=== PATIENT | male | born 1940 | race Two or more races ===

== ENCOUNTER → 2024-02-28 | Outpatient (CLI) | payer OTHER, MEDICAID, SELFPAY ==
--- NOTE | 2024-02-28 14:32 | XR_ITS ---
Examination: Foot, right, 3 views Technique: AP, oblique, lateral views foot, 3 views Date and time of exam: February 28, 2024 1427 hours INDICATIONS: Right foot swelling and pain beginning one month ago. FINDINGS: Severe osteopenia Soft tissue vascular calcification No fracture. No cortical bone destruction Small plantar posterior bony calcaneal spurs IMPRESSION: No fracture No zaid cortical bone destruction
== END | disposition home or self-care (01) ==
LOC: CDIM 14:23 → SWHO 14:24
PROVIDERS: Referring Provider Surgery; Visit Provider Radiology Diagnostic Radiology
DX: L97.519 Non-pressure chronic ulcer of other part of right foot with unspecified severity (principal)
CPT/HCPCS: 73630

== ENCOUNTER → 2024-03-23 | Outpatient (CLI) | payer OTHER, SELFPAY | END | disposition home or self-care (01) | PROVIDERS: PCP Nurse Practitioner Family; Referring Provider Nurse Practitioner Family; Visit Provider Student in an Organized Health Care Education/Training Program | DX: L97.411 Non-pressure chronic ulcer of right heel and midfoot limited to breakdown of skin (principal); S91.301A Unspecified open wound, right foot, initial encounter; X58.XXXA Exposure to other specified factors, initial encounter; I25.10 Atherosclerotic heart disease of native coronary artery without angina pectoris; I10 Essential (primary) hypertension | CPT/HCPCS: 99212; G0463 ==

== ENCOUNTER 2024-07-10 12:29 | Inpatient (IN) | payer OTHER, MEDICARE, SELFPAY ==
[2024-07-10 12:52] VITALS: BP 123/67; PULSE 76; RESP 18; TEMP 36.6; O2SAT 99; BMI 30.9
--- NOTE | 2024-07-10 13:03 | PD.EDABDPN ---
ED Abdominal Pain RME/HPI General Chief Complaint: Abdominal Pain Stated complaint: UPPER ABD PAIN, N/V Time seen by provider: 07/10/24 12:35 Arrival date/time: 07/10/24 12:29 RME / HPI RME / HPI narrative: 83-year-old male patient with significant history of hypertension, CAD, status post open heart surgery, came in for evaluation regarding abdominal pain. Patient has been having abdominal pain since yesterday, noted diffuse in location, associated with vomiting and bloody several times. Pain is described as dull ache, severity moderate. Last bowel movement was this morning. Denies any fever denies any other complaints no medications taken prior to ER visit.. Patient is currently followed by Dr. Galeano, for chronic kidney disease. Related Data Home Medications ?Medication ?Instructions ?Recorded ?Confirmed aspirin 81 mg capsule 81 mg PO QDAY 08/10/23 08/10/23 atorvastatin 20 mg tablet (Lipitor) 20 mg PO QDAY 08/10/23 08/10/23 carvedilol 12.5 mg tablet 12.5 mg PO BID 08/10/23 08/10/23 felodipine 5 mg tablet,extended 5 mg PO QDAY 08/10/23 08/10/23 release 24 hr hydrochlorothiazide 12.5 mg capsule 12.5 mg PO QAM 08/10/23 08/10/23 lisinopril 20 mg tablet 20 mg PO QDAY 08/10/23 08/10/23 pantoprazole 40 mg tablet,delayed 40 mg PO QDAY 08/10/23 08/10/23 release (Protonix) Previous Rx's ?Medication ?Instructions ?Recorded amoxicillin 875 mg-potassium 1 tab PO BID #10 tabs 08/11/23 clavulanate 125 mg tablet Allergies Allergy/AdvReac Type Severity Reaction Status Date / Time No Known Allergies Allergy Verified 08/10/23 18:16 Review of Systems Review of Systems Narrative Review of Systems: Review of system reviewed and within normal limits except mentioned in HPI ED Exam Narrative Physical exam: VITAL SIGNS: Reviewed. GENERAL APPEARANCE: Alert and interactive, follows commands, no acute distress, HEAD AND FACE: Non-traumatic. ENT: PERRL, pink conjunctivitis, eyelid no trauma, Mucous membrane moist. NECK: Supple, nontender, no nuchal rigidity. CHEST: No tenderness, no crepitus, no paradoxical movement, no retractions. LUNGS: Clear, well ventilated, symmetric, no rales, no wheezing, no ronchi, no stridor, good breath sounds bilaterally. HEART: Regular rate, regular rhythm, no murmur, no gallops. ABDOMEN: Decreased bowel sounds, nondistended, no guarding, diffuse tenderness, no rebound, no masses, RECTAL: Deferred. GENITAL: Deferred. NEUROLOGICAL: Gross motor function intact sensory function intact, Appropriate for age. MUSCULOSKELETAL: low back nontender, full range of motion. EXTREMITIES: Nontender, full range of motion. SKIN: Color pink, dry, no rash, no lacerations, no abrasions, no contusions. LYMPHATICS: Deferred. Course Quality Measures none Orders Category Date Time Status COVID-19 Screening Questionnaire NOW Care 07/10/24 16:16 Active Decision to Admit X1 Care 07/10/24 16:16 Active EKG (ED ONLY) *Do not use* NOW Care 07/10/24 13:00 Completed NG / OG Tube to LIS NOW Care 07/10/24 15:[address] abdomen pelvis wo con Stat Exams 07/10/24 14:30 Completed EKG (ED Only) Stat Exams 07/10/24 13:00 Ordered US renal artery study complete Stat Exams 07/10/24 15:49 Ordered CBC Stat Lab 07/10/24 13:15 Completed Comprehensive Metabolic Panel Stat Lab 07/10/24 13:15 Completed Lactate (Lactic Acid) Stat Lab 07/10/24 13:15 Completed Lactic Acid, 3 HR Stat Lab 07/10/24 16:31 Ordered Lipase Stat Lab 07/10/24 13:15 Completed Partial Thromboplastin Time Stat Lab 07/10/24 13:15 Completed Prothrombin Time with INR Stat Lab 07/10/24 13:15 Completed Troponin I Stat Lab 07/10/24 13:15 Completed UA, C/S IF [Urinalysis, C/S if Indicated] Stat Lab 07/10/24 13:01 Ordered Metoclopramide Inj [Reglan Inj] Med 07/10/24 14:30 Discontinued 10 mg IVP X1 ONE Ondansetron Inj [Zofran Inj] Med 07/10/24 13:01 Discontinued 4 mg IV X1 ONE Sodium Chloride 0.9% 1000 ml [Ns] 1,000 ml Med 07/10/24 13:01 Discontinued IV 999 mls/hr Sodium Chloride 0.9% 1000 ml [Ns] 1,000 ml Med 07/10/24 15:54 Discontinued IV 999 mls/hr Vital Signs Vital signs: Vital Signs Temperature 98 F 07/10/24 12:52 Pulse Rate 76 07/10/24 12:52 Respiratory Rate 18 07/10/24 12:52 Blood Pressure 123/67 07/10/24 12:52 Pulse Oximetry (%) 99 07/10/24 12:52 Oxygen Delivery Method Room Air 07/10/24 12:52 Abdominal Pain [facility] Narrative [facility] Narrative:: 83-year-old male patient with significant history of hypertension, CAD, status post open heart surgery, came in for evaluation regarding abdominal pain. Patient has been having abdominal pain since yesterday, noted diffuse in location, associated with vomiting and bloody several times. Pain is described as dull ache, severity moderate. Last bowel movement was this morning. Denies any fever denies any other complaints no medications taken prior to ER visit.. CT scan of the abdomen shows Small bowel obstruction pattern, recommend Gastrografin small bowel series follow-up Severe stenosis right renal artery, consider renal arterial Doppler sonographic evaluation kidneys Laboratory workup is significant for chronic kidney disease, otherwise unremarkable. Patient received IV fluids x 2 L, Reglan IV Zofran IV and NG tube inserted attests to LIS Patient data External records reviewed:: None Clinical information provided by:: patient Social determinants that could affect healthcare access:: none Patient has the following chronic illnesses:: History of exploratory laparotomy in the past. How is presenting disease/condition affected by chronic disease/condition?: exacerbated by Evaluation data The following diagnostics were reviewed and interpreted by me:: lab results and radiology exam(s) Lab and/or radiology exams considered but not ordered:: None Interpretation Summary: See results in MDM Medications / Prescriptions Medications or Prescriptions considered but not ordered:: None Medication administrations:: Medication Administration History Discontinued Medications Sodium Chloride (Ns) 1,000 mls @ 999 mls/hr IV .Q1H1M ONE Stop: 07/10/24 14:01 Last Admin: 07/10/24 13:34 Dose: 999 mls/hr Documented By: JOSÉ MANUEL Sodium Chloride (Ns) 1,000 mls @ 999 mls/hr IV .Q1H1M ONE Stop: 07/10/24 16:54 Metoclopramide HCl (Metoclopramide Inj 5 Mg/Ml Vial 2 Ml) 10 mg IVP X1 ONE; Protocol Stop: 07/10/24 14:31 Last Admin: 07/10/24 14:57 Dose: 10 mg Documented By: RADHA Ondansetron HCl (Ondansetron Inj 2 Mg/Ml Inj 2 Ml) 4 mg IV X1 ONE; Protocol Stop: 07/10/24 13:02 Last Admin: 07/10/24 13:44 Dose: 4 mg Documented By: RADHA IV fluids x 2 L, Reglan Zofran Consultations Consultation(s) initiated? (list below): No Diagnosis Differential diagnosis abdominal pain: abdominal pain, constipation and small bowel obstruction Most likely diagnosis given after review of the tests above:: Small bowel obstruction Admission Indicated Admission indicated?: indicated Explain why admission is indicated or not indicated:: For further management Admission Request Was there a request for admission?: Yes Admission Attestation Admission request attestation: Discussed case with [Dr Pitts] from Hospitalist service regarding admission. Discussed patients ED course, exam findings, labs, and radiology results. The Hospitalist [agrees, to accept the patient for admission. Disposition Plan Disposition Plan: Admit Discharge Plan Plan Patient Disposition: Admit Acute Care w/in Hospital Disposition Comment: Stable Prescriptions/Referrals Prescriptions/Med Rec: No Action carvedilol 12.5 mg Tablet 12.5 mg PO BID Rx Instructions: must administer with a meal/food lisinopril 20 mg Tablet 20 mg PO QDAY aspirin 81 mg Capsule 81 mg PO QDAY atorvastatin [Lipitor] 20 mg Tablet 20 mg PO QDAY felodipine 5 mg Tablet Extended Release 24 Hr 5 mg PO QDAY pantoprazole [Protonix] 40 mg Tablet,Delayed Release (Dr/Ec) 40 mg PO QDAY hydrochlorothiazide 12.5 mg Capsule 12.5 mg PO QAM amoxicillin-pot clavulanate 875-125 mg tablet 1 tab PO BID Qty: 10 0RF Referrals: No Primary/Family,Physician [Primary Care Provider] - In 1 week Problem List Clinical Impression: Abdominal pain, Small bowel obstruction Patient/Caregiver Discharge Instructions Print Language: Pakistani Stand Alone Forms: Seema Award Info., Patient Portal Info Letter
[2024-07-10 13:33] LABS: Lactate (Lactic Acid) 3.1 mMol/L (0.4-2.0)
[2024-07-10] MEDS: SODIUM CHLORIDE 0.9% 1000 ML 1,000 ML 999 ML IV ×2 (13:34→17:32)
[2024-07-10] MEDS: ONDANSETRON INJ 2 MG/ML INJ 2 ML 4 MG IV ×2 (13:44→19:07)
[2024-07-10 13:45] LABS: Basophils % (Auto) 0 % (0-2.5); Eosinophils % (Auto) 0 % (0-10); Hematocrit 41.3 % (41.0-53.0); Hemoglobin 13.9 g/dL (13.5-16.0); Immature Granulocytes % (Auto) 0 % (0-0); Immature Granulocytes Auto 0.02 Thou/mm3 (0.00-0.00); Lymphocytes # (Auto) 0.8 Thou/mm3 (1.0-4.8); Lymphocytes % (Auto) 12 % (10-50); Mean Corpuscular HGB Conc 33.7 g/dl (31.0-37.0); Mean Corpuscular Hemoglobin 29.9 pg (25.0-35.0); Mean Corpuscular Volume 89 fL (80-100); Monocytes % (Auto) 15 % (0-12); Neutrophils # (Auto) 5.1 Thou/mm3 (1.8-7.7); Neutrophils % (Auto) 73 % (37-80); Nucleated Red Blood Cell % 0 /100 WBC (0); Platelet Count 228 Thou/mm3 (140-440); Red Blood Count 4.65 Miln/mm3 (4.50-5.90); White Blood Count 6.9 Thou/mm3 (3.8-10.6)
[2024-07-10 13:48] LABS: INR 1.1 (0.9-1.3); Partial Thromboplastin Time 23.3 Seconds (22.0-36.0)
[2024-07-10 13:53] LABS: Alanine Aminotransferase 18 U/L (10-49); Albumin, Serum 4.7 gm/dL (3.4-4.8); Anion Gap 15 (7-16); Aspartate Amino Transferase 17 U/L (0-34); BUN/Creatinine Ratio 22 Ratio (12-20); Bilirubin,Total 1.5 mg/dL (0.3-1.2); Blood Urea Nitrogen 59 mg/dL (9-23); Carbon Dioxide 29.1 mMol/L (20.0-31.0); Chloride 99 mMol/L (98-107); Creatinine (Component) 2.7 mg/dL (0.6-1.3); Estimated Creatinine Clearance 23.2 mL/min (>60); Glucose 206 mg/dL (74-106); Osmolality,Calculated 307 (275-295); Potassium 4.1 mMol/L (3.4-5.1); Sodium 143 mMol/L (136-145); Total Protein 8.4 gm/dL (5.7-8.2); Troponin I < 0.020 ng/mL (0.0-0.045); eGFR 23 See Note
[2024-07-10 13:54] LABS: Albumin/Globulin Ratio 1.3 (1.2-2.2); Alkaline Phosphatase 82 U/L (46-116); Globulin 3.7 gm/dL (2.3-3.5); Lipase 29 U/L (12-53)
--- NOTE | 2024-07-10 14:30 | XR_ITS ---
Examination: CT abdomen and pelvis without contrast. Coronal 3-D reconstructions. Sagittal 2-D reconstructions. Date and time of exam: July 10, 2024 at 1445 hrs. Indications: Onset abdominal pain with nausea today, history 1 mm left renal calculus on CT study August 16, 2020 CTDI: vol (mGy): 9.21 DLP: (mGycm): 614 Technique: Axial images of the abdomen have been obtained, 3 mm slice thickness Intravenous contrast material has not been administered. Low dose protocols were performed. One or more of the following dose reduction techniques were used; automated exposure control, adjustment of the mA and/or KV according to patient size, use of iterative reconstruction technique. Findings: Fluid distended stomach No focal liver or splenic lesions No definite gallstones No pancreatic mass Atrophic kidneys No renal or ureteral calculi, no hydronephrosis Very heavy calcification origin right renal artery with no critical stenosis Fluid distended small bowel loops Normal appendix 12 mm fat-containing umbilical hernia Contracted urinary bladder Prostate 3.9 cm Severe osteopenia with chronic wedge deformity L5 Impression: Small bowel obstruction pattern, recommend Gastrografin small bowel series follow-up Severe stenosis right renal artery, consider renal arterial Doppler sonographic evaluation kidneys
[2024-07-10] MEDS: METOCLOPRAMIDE INJ 5 MG/ML VIAL 2 ML 10 MG IVP (14:57)
[2024-07-10 16:31] LABS: Reflex Lactate? Y
--- NOTE | 2024-07-10 17:09 | XR_ITS ---
Examination: Small bowel series AP supine portable abdomen 4 views Exam date and time: 07/11/2024 0039 hrs. Indications: Abdominal pain and distention this week, small bowel obstruction pattern on CT abdomen pelvis June, Technique And Findings: Patient received 120 cc Gastrografin, intermediate, 30 minutes, 1 hour, 2 hours films show contrast remaining in the stomach Impression: Recommend follow-up abdomen film now, and 1000 hours
--- NOTE | 2024-07-10 17:21 | PD.RESHP ---
Documentation for date of: 07/10/24 HPI History of Present Illness History of present illness: 83-year-old man with past medical history of CAD s/p open heart surgery, hypertension, CKD who came to the ED with chief complaint of abdominal pain. Patient stated that approximately 3 days ago after eating some beans and tortillas hours later started having nausea and multiple episodes of vomiting associated to severe pain until last night that he describes the pain as diffuse and unbearable for which he decided to come to the ED. He stated he was passing gas until last night and that his last bowel movement was this morning and was very scant. Patient denies fever, chills, chest pain shortness of breath or any other associated symptom. He stated that he thinks today probably he vomited blood. ED course: Initial vitals: Unremarkable Pertinent labs: WBCs within normal limits, hemoglobin 13.9, creatinine 2.7 BUN 59 EGFR 23, lactic acid 3.1, T. bili 1.5 Imaging: CT abdomen pelvis showed Small bowel obstruction pattern, 12 mm fat-containing umbilical hernia, very heavy calcification of right origin of renal artery with no critical stenosis At the ED the patient received: IV fluids 2 L bolus LR, ondansetron IV, and Reglan IV, NG tube was placed and patient will be admitted for further treatment and management of SBO and GIORGI on CKD Past medical history:CAD s/p open heart surgery, hypertension, CKD Past surgical history: Open heart surgery Family history: Father neck cancer, moderate diabetes Social history: Never smoker, never drinker, denied recreational drug, used to work in the [employer] Travel history: None relevant Allergies: No known allergy Review of Systems Review of Systems Systems Reviewed: All systems reviewed, normal except as documented Exam Vital Signs Temp Pulse Resp BP Pulse Ox O2 Del Method 98 F 76 18 123/67 99 Room Air 07/10/24 12:52 07/10/24 12:52 07/10/24 12:52 07/10/24 12:52 07/10/24 12:52 07/10/24 12:52 Narrative Exam General: No acute distress, well appearing, alert, interactive, AOx4 HEENT: NC/AT, PERRL, EOMI, Good conjugate gaze, moist mucous membranes, oropharynx clear. Neck: Supple, No masses, No adenopathy, carotid pulse 2+ bilaterally without bruits, No JVD, normal range of motion. Chest: Symmetrical, atraumatic, and with equal expansion , Nontender on palpation no deformity and no crepitus. CVS: S1 and S2 present, Regular rate and rhythm, No murmurs, rubs or gallops perceived during auscultation. Lungs: Normal respiratory effort, CTAB, no wheezing, rhonchi or rales perceived during auscultation, No intercostal or subcostal retraction. Abdomen : Distended, mild tenderness to palpation on all abdominal quadrants, no guarding ,no rebound, hypoactive bowel sounds Extremities: 1+ edema bilateral lower extremities, warm well perfused, normal tone and ROM, strength and sensation intact, cap refill less than 2, +2 dp equal bilaterally, able to move all 4 extremities spontaneously. Skin: Intact, no rashes, no lesions, no erythema or jaundice noted Neuro: AOx4, no focal neurologic deficits noted, GCS 15 Psych: Appropriate mood and affect. Results: Labs 07/10/24 13:15 07/10/24 13:15 Labs: Short CBC 07/10/24 Range/Units 13:15 WBC 6.9 (3.8-10.6) Thou/mm3 Hgb 13.9 (13.5-16.0) g/dL Hct 41.3 (41.0-53.0) % Plt Count 228 (140-440) Thou/mm3 BMP 07/10/24 13:15 Sodium 143 Potassium 4.1 Chloride 99 Carbon Dioxide 29.1 BUN 59 H Creatinine 2.7 H Glucose 206 H Calcium 10.0 Cardiac Enzymes 07/10/24 Range/Units 13:15 Troponin I < 0.020 (0.0-0.045) ng/mL Liver Function 07/10/24 Range/Units 13:15 Total Bilirubin 1.5 H (0.3-1.2) mg/dL AST 17 (0-34) U/L ALT 18 (10-49) U/L Alkaline Phosphatase 82 (46-116) U/L Albumin 4.7 (3.4-4.8) gm/dL Quality Measures Quality Measures none Advance care planning discussed with:: patient Medications Home Medications and Allergies Home Medications ?Medication ?Instructions ?Recorded ?Confirmed ?Type aspirin 81 mg capsule 81 mg PO QDAY 08/10/23 08/10/23 History atorvastatin 20 mg tablet (Lipitor) 20 mg PO QDAY 08/10/23 08/10/23 History carvedilol 12.5 mg tablet 12.5 mg PO BID 08/10/23 08/10/23 History felodipine 5 mg tablet,extended 5 mg PO QDAY 08/10/23 08/10/23 History release 24 hr hydrochlorothiazide 12.5 mg capsule 12.5 mg PO QAM 08/10/23 08/10/23 History lisinopril 20 mg tablet 20 mg PO QDAY 08/10/23 08/10/23 History pantoprazole 40 mg tablet,delayed 40 mg PO QDAY 08/10/23 08/10/23 History release (Protonix) Allergies Allergy/AdvReac Type Severity Reaction Status Date / Time No Known Allergies Allergy Verified 08/10/23 18:16 Visit Medications Sodium Chloride (Ns) 1,000 mls @ 100 mls/hr IV .Q10H [facility] Stop: 08/09/24 17:14 Morphine Sulfate (Morphine Sulf Inj 10 Mg/Ml Vial) 1 mg IVP Q4HR PRN PRN Reason: PAIN SCALE 7-10 (Severe Stop: 07/15/24 17:02 Ondansetron HCl (Ondansetron Inj 2 Mg/Ml Inj 2 Ml) 4 mg IV Q6HR PRN; Protocol PRN Reason: NAUSEA OR VOMITING Stop: 08/09/24 17:07 Pantoprazole Sodium (Pantoprazole Inj 40 Mg Vial) 40 mg IVP QDAY WILIAN Stop: 08/09/24 17:14 Discontinued Medications Sodium Chloride (Ns) 1,000 mls @ 999 mls/hr IV .Q1H1M ONE Stop: 07/10/24 14:01 Last Admin: 07/10/24 13:34 Dose: 999 mls/hr Sodium Chloride (Ns) 1,000 mls @ 999 mls/hr IV .Q1H1M ONE Stop: 07/10/24 16:54 Metoclopramide HCl (Metoclopramide Inj 5 Mg/Ml Vial 2 Ml) 10 mg IVP X1 ONE; Protocol Stop: 07/10/24 14:31 Last Admin: 07/10/24 14:57 Dose: 10 mg Ondansetron HCl (Ondansetron Inj 2 Mg/Ml Inj 2 Ml) 4 mg IV X1 ONE; Protocol Stop: 07/10/24 13:02 Last Admin: 07/10/24 13:44 Dose: 4 mg Assessment & Plan Plan 83-year-old man with past medical history of CAD s/p open heart surgery, hypertension, CKD who came to the ED with chief complaint of abdominal pain. Patient stated that approximately 3 days ago after eating some beans and tortillas hours later started having nausea and multiple episodes of vomiting associated to severe pain until last night that he describes the pain as diffuse and unbearable for which he decided to come to the ED. He stated he was passing gas until last night and that his last bowel movement was this morning and was very scant. Patient denies fever, chills, chest pain shortness of breath or any other associated symptom. He stated that he thinks today probably he vomited blood.Pertinent labs: WBCs within normal limits, hemoglobin 13.9, creatinine 2.7 BUN 59 EGFR 23, lactic acid 3.1, T. bili 1.5 Imaging: CT abdomen pelvis showed Small bowel obstruction pattern, 12 mm fat-containing umbilical hernia, very heavy calcification of right origin of renal artery with no critical stenosis. At the ED the patient received: IV fluids 2 L bolus LR, ondansetron IV, and Reglan IV, NG tube was placed and patient will be admitted for further treatment and management of SBO and GIORGI on CKD #Small bowel obstruction Patient present 3 days of nausea vomiting and severe abdominal pain Last bowel movement was this morning that he stated that was a scant, was passing gas until last night CT abdomen pelvis showed Small bowel obstruction pattern, 12 mm fat-containing umbilical hernia ? IV NS 100 cc/h ? Ondansetron 4 mg IV every 6 for nausea and vomiting ? Protonix 40 mg IV daily ? IV morphine 1 mg every 4 hours as needed ? N.p.o. ? Insert NG tube ? Low intermittent suction ? Follow-up Gastrograffin small bowel series ? Follow-up CBC and CMP #Rule out upper GI bleed Possibly secondary to erosive gastritis vs Domi-Chou vs PUD? Patient had multiple episodes of vomiting for the last 3 days that could be causing mucosal erosion Less likely GI bleed at this moment hemoglobin stable 13.9 ? Follow-up occult blood test ? Follow-up H&H ? We will consider possibility of consulting GI in case of guaiac is positive or hemoglobin downtrends #GIORGI on CKD stage IIIb Most likely prerenal in the setting of dehydration Patient is following up for CKD and nephrology as an outpatient CT abdomen pelvis shows heavy calcification of right origin of renal artery with no critical stenosis Creatinine baseline around 1.4 Creatinine today 2.7 BUN 59 EGFR 23 - IV fluids NS at 100 cc/h - Strict ins and outs - Avoid nephrotoxic drugs - Renally dose medications - Follow-up renal ultrasound - Follow-up CMP #Lactic acidosis Possibly secondary to impaired lactate clearance in the setting of CKD vs bowel ischemia? CT abdomen pelvis shows small bowel obstruction pattern, 12 mm fat-containing umbilical hernia without incarceration Lactic acid 3.1 ? Continue IV fluids ? Trend lactic acid #Hyperbilirubinemia Most likely secondary to severe vomiting Liver enzymes within normal limits, alk phos normal less likely obstruction pattern T. bili 1.5 ? Follow-up CMP #History of CAD status post open heart surgery ? Patient is n.p.o. resume any home medications when reconciled and patient is able to eat #History of hypertension Patient is normotensive at this moment ? Hold home medications at the moment due to blood pressures on the soft side and patient is n.p.o. Disposition: MedSurg Fluids and Diet: N.p.o./IV fluids NS 100 cc/h DVT prophylaxis: SCD GI prophylaxis: Protonix Clemons: None CODE STATUS: Full code Patient discussed with my attending Dr Vesta Castro MD PGY-3 Disclaimer: Despite multiple revisions, due to the dictation software being used, the document bellow may not be free of grammatical errors including phonetic/typographic errors. However, this does not deter from our commitment to providing health care in the patient's best interest in mind. Attending Provider Attestation/Addendum I attest that I was physically present for the evaluation, physical examination, lab and imaging review of the patient with the residents. I discussed the case with the residents and agree with the findings and plans of care as documented above. Patient is a 83 years old male with past medical history of CAD status post open heart surgery, hypertension, CKD who presented to the ED with complaint of abdominal pain. Patient has been having abdominal pain associated with nausea and vomiting for last 3 days. His pain got worse last night and he decided to visit the ED. He did have a small bowel movement this morning. In the ED, he was found to have BUN/creatinine of 59/2.7, elevated lactate elevated bilirubin. CT abdomen/pelvis was done, which showed small bowel obstruction, umbilical hernia and heavy calcification of renal artery with no critical stenosis. We will admit the patient for management of small bowel obstruction. Will start him on IV Zofran, analgesics, NG tube with low intermittent suction,. Once patient's nausea/vomiting improves, we will start small bowel series with Gastrografin. We will also start him on maintenance IV hydration for dehydration, GIORGI and elevated lactate. Basilio Lemons MD
[2024-07-10 18:01] LABS: Glucose Estimated Average 120 mg/dL (80-131); Hemoglobin A1C 5.8 % Hgb (4.8-6.0)
[2024-07-10 18:35] LABS: Lactic Acid, 3 HR 1.6 mMol/L (0.4-2.0)
[2024-07-10 18:40] LABS: Collection Type, Urine Clean Catch
[2024-07-10 18:50] VITALS: BP 157/65; PULSE 72; RESP 19; TEMP 37; O2SAT 91
[2024-07-10 18:53] LABS: Bilirubin,Urine Negative (Negative); Blood,Urine Negative (Negative); Clarity,Urine Clear (Clear/Hazy); Color,Urine Yellow (Lt Yel-Yel); Culture Indicated,Urine Not Indicated; Glucose, Urine Negative (Negative); Hyaline Casts,Urine 1 /hpf (0-1); Ketones,Urine Negative (Negative); Leukocyte Esterase,Urine Negative (Negative); Nitrite,Urine Negative (Negative); Protein,Urine Trace (Neg - Trace); RBC,Urine 2 /hpf (0-3); Specific Gravity,Urine 1.021 (1.001-1.035); Squamous Epithelial Cell,Urine 1 /hpf (0-5); Urobilinogen,Urine Negative mg/dL (0.0-1.0); WBC,Urine 1 /hpf (0-5)
[2024-07-10] MEDS: MORPHINE SULF INJ 10 MG/ML VIAL IVP (19:06)
[2024-07-10] MEDS: PANTOPRAZOLE INJ 40 MG VIAL IVP (19:06)
[2024-07-10] MEDS: SODIUM CHLORIDE 0.9% 1000 ML 1,000 ML 100 ML IV (19:07)
--- NOTE | 2024-07-10 20:11 | XR_ITS ---
Examination: AP chest single view Technique: AP portable upright chest single view Exam date and time: Indicative of exam 1922 hrs. Comparison the 2023 Indications: Post orogastric tube placement. Findings: Orogastric tube is poorly visualized but appears to be in the abdomen Marked elevation left hemidiaphragm Prominent vascular congestion CABG Mild enlargement cardiac contour Impression: Recommend abdomen film follow-up to best assess position of the orogastric tube
--- NOTE | 2024-07-10 22:34 | XR_ITS ---
Examination: AP chest single view Technique: AP portable upright chest single view Exam date and time: June 20142024 hours Indications: Post orogastric tube placement Findings: Orogastric tube in stomach satisfactory position CABG Enlarged cardiac contour Moderate elevation left hemidiaphragm Moderate vascular congestion Impression: Orogastric tube in stomach satisfactory position
[2024-07-10 23:12] VITALS: BMI 30.9
[2024-07-11] VITALS: BP 130/58; PULSE 65; RESP 19; TEMP 36.4; O2SAT 91
--- NOTE | 2024-07-11 | XR_ITS ---
Examination: Abdomen AP single view Technique: AP portable supine abdomen, single view Exam date and time: 07/11/2024, 8:29 AM COMPARISON: CT and small bowel film from 07/10/2024 INDICATION: Small bowel is follow-up. COMPARISON: Contrast remains within the stomach. No evidence of contrast passing into duodenum and small bowel. Multiple dilated loops of small bowel measuring up to 4 cm. IMPRESSION: As above. Findings consistent with gastric outlet/small bowel obstruction
[2024-07-11] MEDS: SODIUM CHLORIDE 0.9% 1000 ML 1,000 ML 100 ML IV (00:18)
[2024-07-11 04:00] VITALS: BP 129/55; PULSE 71; RESP 18; TEMP 36.3; O2SAT 93
[2024-07-11 06:15] LABS: Basophils % (Auto) 1 % (0-2.5); Eosinophils % (Auto) 0 % (0-10); Hematocrit 36.8 % (41.0-53.0); Hemoglobin 12.1 g/dL (13.5-16.0); Immature Granulocytes % (Auto) 0 % (0-0); Immature Granulocytes Auto 0.01 Thou/mm3 (0.00-0.00); Lymphocytes # (Auto) 0.8 Thou/mm3 (1.0-4.8); Lymphocytes % (Auto) 15 % (10-50); Mean Corpuscular HGB Conc 32.9 g/dl (31.0-37.0); Mean Corpuscular Hemoglobin 29.8 pg (25.0-35.0); Mean Corpuscular Volume 91 fL (80-100); Monocytes # (Auto) 1.2 Thou/mm3 (0.0-0.8); Monocytes % (Auto) 24 % (0-12); Neutrophils # (Auto) 2.9 Thou/mm3 (1.8-7.7); Neutrophils % (Auto) 60 % (37-80); Nucleated Red Blood Cell % 0 /100 WBC (0); Platelet Count 191 Thou/mm3 (140-440); RDW Standard Deviation 47.4 fL (35.1-43.9); Red Blood Count 4.06 Miln/mm3 (4.50-5.90); White Blood Count 4.9 Thou/mm3 (3.8-10.6)
[2024-07-11 06:51] LABS: Alanine Aminotransferase 13 U/L (10-49); Albumin, Serum 4.1 gm/dL (3.4-4.8); Albumin/Globulin Ratio 1.4 (1.2-2.2); Alkaline Phosphatase 62 U/L (46-116); Anion Gap 13 (7-16); Aspartate Amino Transferase 23 U/L (0-34); BUN/Creatinine Ratio 19 Ratio (12-20); Bilirubin,Total 1.1 mg/dL (0.3-1.2); Blood Urea Nitrogen 71 mg/dL (9-23); Calcium 8.7 mg/dL (8.3-10.6); Calcium (Corrected) 8.7 mg/dL (8.5-10.1); Chloride 103 mMol/L (98-107); Creatinine (Component) 3.7 mg/dL (0.6-1.3); Glucose 121 mg/dL (74-106); Magnesium 2.3 mg/dL (1.6-2.6); Osmolality,Calculated 316 (275-295); Phosphorous 6.5 mg/dL (2.4-5.1); Potassium 4.1 mMol/L (3.4-5.1); Sodium 148 mMol/L (136-145); Total Protein 7.1 gm/dL (5.7-8.2); eGFR 16 See Note
--- NOTE | 2024-07-11 07:09 | PD.RESPRO ---
Documentation for date of: 07/11/24 Subjective Subjective Interval history: No overnight acute events This morning at the bedside patient is AOx4, 2 L of bilious secretion came out from NG tube at the moment of insertion, patient states that he still feels nauseous, otherwise endorse that the pain has improved stated he still had not passed any gas or had any bowel movement yet. Small bowel series with Gastrografin showed gastric outlet and small bowel obstruction for which gastroenterology was consulted and recommended to start Reglan 5 mg IV every 6 hours. Creatinine has been uptrending to 3.7 despite patient being on IV fluids, Dr. Galeano was consulted we greatly appreciate recommendations. Exam Vital Signs Temp Pulse Resp BP Pulse Ox O2 Del Method 97.3 F 71 18 129/55 L 93 L Room Air 07/11/24 04:00 07/11/24 04:00 07/11/24 04:00 07/11/24 04:00 07/11/24 04:00 07/11/24 04:00 Narrative Exam General: No acute distress, well appearing, alert, interactive, AOx4, NG tube in place draining bilious content HEENT: NC/AT, PERRL, EOMI, Good conjugate gaze, moist mucous membranes, oropharynx clear. Neck: Supple, No masses, No adenopathy, carotid pulse 2+ bilaterally without bruits, No JVD, normal range of motion. Chest: Symmetrical, atraumatic, and with equal expansion , Nontender on palpation no deformity and no crepitus. CVS: S1 and S2 present, Regular rate and rhythm, No murmurs, rubs or gallops perceived during auscultation. Lungs: Normal respiratory effort, CTAB, no wheezing, rhonchi or rales perceived during auscultation, No intercostal or subcostal retraction. Abdomen : Distended, mild tenderness to palpation on all abdominal quadrants, no guarding ,no rebound, hypoactive bowel sounds Extremities: 1+ edema bilateral lower extremities, warm well perfused, normal tone and ROM, strength and sensation intact, cap refill less than 2, +2 dp equal bilaterally, able to move all 4 extremities spontaneously. Skin: Intact, no rashes, no lesions, no erythema or jaundice noted Neuro: AOx4, no focal neurologic deficits noted, GCS 15 Psych: Appropriate mood and affect. Objective Labs 07/11/24 04:37 07/11/24 04:37 Labs: Laboratory Results - last 24 hr 07/10/24 07/10/24 07/10/24 13:15 18:27 18:33 WBC 6.9 RBC 4.65 Hgb 13.9 Hct 41.3 MCV 89 MCH 29.9 MCHC 33.7 RDW Std Deviation 45.0 H Plt Count 228 Neut % (Auto) 73 Lymph % (Auto) 12 [place] % (Auto) 15 H Eos % (Auto) 0 Baso % (Auto) 0 Neut # (Auto) 5.1 Lymph # (Auto) 0.8 L [place] # (Auto) 1.0 H Eos # (Auto) 0.0 Baso # (Auto) 0.0 Immature Gran # (Auto) 0.02 H Absolute Nucleated RBC 0.00 Immature Gran % 0 Nucleated RBC % 0 PT 12.0 INR 1.1 APTT 23.3 Sodium 143 Potassium 4.1 Chloride 99 Carbon Dioxide 29.1 Anion Gap 15 BUN 59 H Creatinine 2.7 H Estim Creat Clear Calc 23.2 L eGFR 23 L BUN/Creatinine Ratio 22 H Glucose [address] Glu mg/dL 120 Hemoglobin A1c 5.8 Calculated Osmolality 307 H Lactic Acid 3.1 H 1.6 Calcium 10.0 Corrected Calcium 10.0 Phosphorus Magnesium Total Bilirubin 1.5 H AST 17 ALT 18 Alkaline Phosphatase 82 Troponin I < 0.020 Total Protein 8.4 H Albumin 4.7 Globulin 3.7 H Albumin/Globulin Ratio 1.3 Lipase 29 Ur Collection Type Clean Catch Urine Color Yellow Urine Clarity Clear Urine pH 5.0 Ur Specific [place] 1.021 Urine Protein Trace Urine Glucose (UA) Negative Urine Ketones Negative Urine Blood Negative Urine Nitrite Negative Urine Bilirubin Negative Urine Urobilinogen (Auto) Negative Ur Leukocyte Esterase Negative Urine RBC 2 Urine WBC 1 Ur Squamous Epith Cells 1 Urine Bacteria None Hyaline Casts 1 Ur Culture Indicated? Not Indicated 07/11/24 04:37 WBC 4.9 RBC 4.06 L Hgb 12.1 L Hct 36.8 L MCV 91 MCH 29.8 MCHC 32.9 RDW Std Deviation 47.4 H Plt Count 191 D Neut % (Auto) 60 Lymph % (Auto) 15 [place] % (Auto) 24 H Eos % (Auto) 0 Baso % (Auto) 1 Neut # (Auto) 2.9 Lymph # (Auto) 0.8 L [place] # (Auto) 1.2 H Eos # (Auto) 0.0 Baso # (Auto) 0.0 Immature Gran # (Auto) 0.01 H Absolute Nucleated RBC 0.00 Immature Gran % 0 Nucleated RBC % 0 PT INR APTT Sodium 148 H Potassium 4.1 Chloride 103 Carbon Dioxide 32.0 H Anion Gap 13 BUN 71 H Creatinine 3.7 H D Estim Creat Clear Calc 17.0 L eGFR 16 L BUN/Creatinine Ratio 19 [address]ucose [address] Glu mg/dL Hemoglobin A1c Calculated Osmolality 316 H Lactic Acid Calcium 8.7 Corrected Calcium 8.7 Phosphorus 6.5 H Magnesium 2.3 Total Bilirubin 1.1 AST 23 ALT 13 Alkaline Phosphatase 62 D Troponin I Total Protein 7.1 Albumin 4.1 D Globulin 3.0 Albumin/Globulin Ratio 1.4 Lipase Ur Collection Type Urine Color Urine Clarity Urine pH Ur Specific [place] Urine Protein Urine Glucose (UA) Urine Ketones Urine Blood Urine Nitrite Urine Bilirubin Urine Urobilinogen (Auto) Ur Leukocyte Esterase Urine RBC Urine WBC Ur Squamous Epith Cells Urine Bacteria Hyaline Casts Ur Culture Indicated? Quality Measures Quality Measures none Advance care planning discussed with:: patient Assessment & Plan Assessment Current Active Medications: Generic Name Dose Route Start Last Admin Trade Name Freq PRN Reason Stop Dose Admin Sodium Chloride 1,000 mls @ 100 mls/hr 07/10/24 17:15 07/11/24 00:18 Ns IV 08/09/24 17:14 100 mls/hr .Q10H WILIAN Administration Morphine Sulfate 1 mg 07/10/24 17:03 07/10/24 19:06 Morphine Sulf Inj 10 Mg/Ml Vial IVP 07/15/24 17:02 1 mg Q4HR PRN Administration PAIN SCALE 7-10 (Severe Ondansetron HCl 4 mg 07/10/24 17:08 07/10/24 19:07 Ondansetron Inj 2 Mg/Ml Inj 2 Ml IV 08/09/24 17:07 4 mg Q6HR PRN Administration NAUSEA OR VOMITING Protocol Pantoprazole Sodium 40 mg 07/10/24 17:15 07/10/24 19:06 Pantoprazole Inj 40 Mg Vial IVP 08/09/24 17:14 40 mg QDAY WILIAN Administration Plan 83-year-old man with past medical history of CAD s/p open heart surgery, hypertension, CKD who came to the ED with chief complaint of abdominal pain. Patient stated that approximately 3 days ago after eating some beans and tortillas hours later started having nausea and multiple episodes of vomiting associated to severe pain until last night that he describes the pain as diffuse and unbearable for which he decided to come to the ED. He stated he was passing gas until last night and that his last bowel movement was this morning and was very scant. Patient denies fever, chills, chest pain shortness of breath or any other associated symptom. He stated that he thinks today probably he vomited blood.Pertinent labs: WBCs within normal limits, hemoglobin 13.9, creatinine 2.7 BUN 59 EGFR 23, lactic acid 3.1, T. bili 1.5 Imaging: CT abdomen pelvis showed Small bowel obstruction pattern, 12 mm fat-containing umbilical hernia, very heavy calcification of right origin of renal artery with no critical stenosis. At the ED the patient received: IV fluids 2 L bolus LR, ondansetron IV, and Reglan IV, NG tube was placed and patient will be admitted for further treatment and management of SBO and GIORGI on CKD #Small bowel obstruction Patient present 3 days of nausea vomiting and severe abdominal pain Last bowel movement was this morning that he stated that was a scant, was passing gas until last night CT abdomen pelvis showed Small bowel obstruction pattern, 12 mm fat-containing umbilical hernia ? IV LR 150 cc/h ? Tenia Protonix 40 mg IV daily ? IV morphine 1 mg every 4 hours as needed ? Low intermittent suction ? Follow-up CBC and CMP #Gastric outlet Small bowel series showed gastric outlet and small bowel obstruction Gastroenterology was consulted who recommended to start Reglan IV 5 mg every 6 hours ? DC ondansetron ? IV Reglan 5 mg every 6 hours #Rule out upper GI bleed Possibly secondary to erosive gastritis vs Domi-Chou vs PUD? Patient had multiple episodes of vomiting for the last 3 days that could be causing mucosal erosion Less likely GI bleed at this moment hemoglobin stable 13.9 ? Follow-up occult blood test ? Follow-up CBC #GIORGI on CKD stage IIIb Most likely prerenal in the setting of dehydration Patient is following up for CKD and nephrology as an outpatient CT abdomen pelvis shows heavy calcification of right origin of renal artery with no critical stenosis Creatinine baseline around 1.4 Creatinine uptrending to 3.7 Dr Galeano nephrology was consulted with greatly appreciate recommendations - IV fluids LR at 150 cc/h - Strict ins and outs - Avoid nephrotoxic drugs - Renally dose medications - Follow-up renal ultrasound - Follow-up CMP #Hyperphosphatemia Most likely secondary to GIORGI on CKD Phosphorus 6.5 Nephrology was consulted we will appreciate recommendations ? Follow-up CMP and phosphorus #History of CAD status post open heart surgery ? Patient is n.p.o. resume any home medications when reconciled and patient is able to eat #History of hypertension Patient is normotensive at this moment ? Hold home medications at the moment due to blood pressures on the soft side and patient is n.p.o. ? Hydralazine 10 IV every 6 hours as needed for SBP [id number] #Lactic acidosis resolved Possibly secondary to impaired lactate clearance in the setting of CKD vs bowel ischemia? CT abdomen pelvis shows small bowel obstruction pattern, 12 mm fat-containing umbilical hernia without incarceration Lactic acid trend down to normal limits #Hyperbilirubinemia resolved Most likely secondary to severe vomiting Liver enzymes within normal limits, alk phos normal less likely obstruction pattern T. bili down trended to normal limits ? Follow-up CMP Disposition: MedSurg Fluids and Diet: N.p.o./IV fluids NS 100 cc/h DVT prophylaxis: SCD GI prophylaxis: Protonix Clem[place]: None CODE STATUS: Full code Patient discussed with my attending Dr Vesta Castro MD PGY-3 Disclaimer: Despite multiple revisions, due to the dictation software being used, the document bellow may not be free of grammatical errors including phonetic/typographic errors. However, this does not deter from our commitment to providing health care in the patient's best interest in mind. Attending Provider Attestation/Addendum I attest that I was physically present for the evaluation, physical examination, lab and imaging review of the patient with the residents. I discussed the case with the residents and agree with the findings and plans of care as documented above. At side today, patient continues to complain of nausea. He has been having bilious secretion coming out of his NG tube. Small bowel series with Gastrografin has been started, reading from the last 1 showed gastric outlet and small bowel obstruction. Discussed with gastroenterology, recommended starting patient on Reglan. Creatinine noted to be uptrending, 3.7 today, we will continue with IV hydration and obtain nephrology consult. Patient currently on LR 150 cc/h, Protonix, NG tube with low intermittent suction. Patient stated about dark vomit but his hemoglobin continues to be stable, unable to obtain FOBT as patient has not passed bowel or gas. Basilio Lemons MD
[2024-07-11 08:00] VITALS: BP 156/63; PULSE 73; RESP 18; TEMP 36.2; O2SAT 91
[2024-07-11] MEDS: PANTOPRAZOLE INJ 40 MG VIAL IVP (08:32)
[2024-07-11] MEDS: ONDANSETRON INJ 2 MG/ML INJ 2 ML 4 MG IV (09:01)
[2024-07-11] MEDS: RINGERS LACTATED 1000 ML 1,000 ML 100 ML IV (10:07)
[2024-07-11 12:00] VITALS: BP 150/63; PULSE 68; RESP 20; TEMP 36.6; O2SAT 90
--- NOTE | 2024-07-11 14:45 | PC.SS ---
Rounding: Follow up on ABD series
[2024-07-11] MEDS: METOCLOPRAMIDE INJ 5 MG/ML VIAL 2 ML IVP ×3 (14:49→23:43)
[2024-07-11 16:00] VITALS: BP 154/71; PULSE 84; RESP 18; TEMP 36.3; O2SAT 99
[2024-07-11] MEDS: RINGERS LACTATED 1000 ML 1,000 ML 150 ML IV (17:22)
--- NOTE | 2024-07-11 18:00 | XR_ITS ---
Examination: Abdomen AP single view Technique: AP portable supine abdomen, single view Exam date and time: The intrapelvic today at 1708 hrs. Indications: 20 hour delayed film post small bowel series yesterday Findings: Contrast in distended small bowel loops, minimal contrast in colon Impression: Small bowel obstruction pattern
[2024-07-11 20:00] VITALS: BP 140/64; PULSE 74; RESP 20; TEMP 36.2; O2SAT 92
--- NOTE | 2024-07-11 21:03 | PD.IMCONS ---
HPI Data of Consult Requesting Physician: Basilio Lemons MD Primary Care Provider: Physician No Primary/Family Consult Narrative Reason for consult: Nausea vomiting pain abdomen History of present illness: 83 years old male presented to the emergency room on 07/10/2024 with diffuse abdominal pain nausea vomiting some of the vomit was bloody Patient has an NGT in place with bilious drainage which is copious Small bowel follow-through is in progress initial films showed gastric ulcer obstruction but the contrast eventually passed through and into the colon at the moment Patient has dilated loops of bowel but no air-fluid levels cc:: cc: Basilio Lemons MD Review of Systems Review of Systems Systems Reviewed: All systems reviewed, normal except as documented Past Medical History Surgical History OTHER SURGICAL HX: Essential hypertension coronary artery status post CABG Hyperlipidemia Meds Home Medications and Allergies Home Medications ?Medication ?Instructions ?Recorded ?Confirmed ?Type aspirin 81 mg capsule 81 mg PO QDAY 08/10/23 07/11/24 History atorvastatin 20 mg tablet (Lipitor) 20 mg PO QDAY 08/10/23 07/11/24 History carvedilol 12.5 mg tablet 12.5 mg PO BID 08/10/23 07/11/24 History felodipine 5 mg tablet,extended 5 mg PO QDAY 08/10/23 07/11/24 History release 24 hr hydrochlorothiazide 12.5 mg capsule 12.5 mg PO QAM 08/10/23 07/11/24 History lisinopril 20 mg tablet 10 mg PO QDAY 08/10/23 07/11/24 History pantoprazole 40 mg tablet,delayed 40 mg PO QDAY 08/10/23 07/11/24 History release (Protonix) furosemide 40 mg tablet (Lasix) 40 mg PO QDAY 07/11/24 07/11/24 History terazosin 5 mg capsule 5 mg PO BID 07/11/24 07/11/24 History Allergies Allergy/AdvReac Type Severity Reaction Status Date / Time No Known Allergies Allergy Verified 08/10/23 18:16 Exam Vital Signs Temp Pulse Resp BP Pulse Ox O2 Del Method 97.2 F 74 20 140/64 H 92 L Room Air 07/11/24 20:00 07/11/24 20:00 07/11/24 20:00 07/11/24 20:00 07/11/24 20:00 07/11/24 20:00 Constitutional Comments: Chronically ill-appearing Routine Abdominal Exam Comments: Distended no bowel sounds Results Labs 07/11/24 04:37 07/11/24 04:37 Labs: Short CBC 07/11/24 Range/Units 04:37 WBC 4.9 (3.8-10.6) Thou/mm3 Hgb 12.1 L (13.5-16.0) g/dL Hct 36.8 L (41.0-53.0) % Plt Count 191 D (140-440) Thou/mm3 BMP 07/11/24 04:37 Sodium 148 H Potassium 4.1 Chloride 103 Carbon Dioxide 32.0 H BUN 71 H Creatinine 3.7 H D Glucose 121 H D Calcium 8.7 Liver Function 07/11/24 Range/Units 04:37 Total Bilirubin 1.1 (0.3-1.2) mg/dL AST 23 (0-34) U/L ALT 13 (10-49) U/L Alkaline Phosphatase 62 D (46-116) U/L Albumin 4.1 D (3.4-4.8) gm/dL Assessment and Plan Additional Assessment & Plan Additional Plan: Small bowel obstruction/ileus Continue NGT suction Contrast is moving Some of it is all in the right colon hopefully this is an incomplete obstruction and it will resolve with intermittent Gomco suction Patient does have a some kind of a gastroparesis with bloody vomiting on presentation Once the SBO resolves we will consider upper endoscopy to make sure there is no partial stenosis of the pyloric channel Other medical problems include CKD 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
[2024-07-12] VITALS (8 sets, daily range): BP systolic 127–150; BP diastolic 57–69; PULSE 64–79; RESP 16–20; TEMP 36.2–36.7; O2SAT 90–97
[2024-07-12] MEDS: RINGERS LACTATED 1000 ML 1,000 ML 150 ML IV ×2 (02:00→07:36)
[2024-07-12] MEDS: METOCLOPRAMIDE INJ 5 MG/ML VIAL 2 ML IVP ×4 (05:39→23:43)
[2024-07-12 05:42] LABS: Basophils % (Auto) 0 % (0-2.5); Eosinophils # (Auto) 0.1 Thou/mm3 (0.0-0.5); Eosinophils % (Auto) 1 % (0-10); Hematocrit 35.5 % (41.0-53.0); Hemoglobin 11.5 g/dL (13.5-16.0); Immature Granulocytes % (Auto) 0 % (0-0); Immature Granulocytes Auto 0.02 Thou/mm3 (0.00-0.00); Lymphocytes % (Auto) 16 % (10-50); Mean Corpuscular HGB Conc 32.4 g/dl (31.0-37.0); Mean Corpuscular Hemoglobin 30.2 pg (25.0-35.0); Mean Corpuscular Volume 93 fL (80-100); Monocytes # (Auto) 1.2 Thou/mm3 (0.0-0.8); Monocytes % (Auto) 19 % (0-12); Neutrophils # (Auto) 3.9 Thou/mm3 (1.8-7.7); Neutrophils % (Auto) 63 % (37-80); Nucleated Red Blood Cell % 0 /100 WBC (0); Platelet Count 170 Thou/mm3 (140-440); RDW Standard Deviation 48.5 fL (35.1-43.9); Red Blood Count 3.81 Miln/mm3 (4.50-5.90); White Blood Count 6.2 Thou/mm3 (3.8-10.6)
[2024-07-12 05:57] LABS: Alanine Aminotransferase 12 U/L (10-49); Albumin, Serum 3.7 gm/dL (3.4-4.8); Albumin/Globulin Ratio 1.2 (1.2-2.2); Alkaline Phosphatase 57 U/L (46-116); Anion Gap 12 (7-16); Aspartate Amino Transferase 19 U/L (0-34); BUN/Creatinine Ratio 22 Ratio (12-20); Bilirubin,Total 0.8 mg/dL (0.3-1.2); Blood Urea Nitrogen 83 mg/dL (9-23); Calcium 8.5 mg/dL (8.3-10.6); Calcium (Corrected) 8.7 mg/dL (8.5-10.1); Carbon Dioxide 33.6 mMol/L (20.0-31.0); Chloride 105 mMol/L (98-107); Creatinine (Component) 3.8 mg/dL (0.6-1.3); Estimated Creatinine Clearance 16.5 mL/min (>60); Globulin 3.1 gm/dL (2.3-3.5); Glucose 119 mg/dL (74-106); Magnesium 2.4 mg/dL (1.6-2.6); Osmolality,Calculated 325 (275-295); Phosphorous 6.6 mg/dL (2.4-5.1); Sodium 151 mMol/L (136-145); Total Protein 6.8 gm/dL (5.7-8.2); eGFR 15 See Note
--- NOTE | 2024-07-12 07:25 | PD.RESPRO ---
Documentation for date of: 07/12/24 Subjective Subjective Interval history: No oriented events This morning the bedside patient is AOx4, respond to questions properly he endorsed that he feels better compared to yesterday denied abdominal pain at this moment he stated he is passing gas otherwise no bowel movements yet. NG tube drainage 600 mL overnight. X-ray abdominal series from yesterday afternoon showed contrast in distended small bowel loops minimal contrast in colon most likely small bowel obstruction for which general surgery was consulted. Due to kidney function is not improving despite aggressive fluid hydration we spoke again with patient integration technician Dr. Galeano who recommended to start IV Bumex 2 mg every 6 hours to encourage diuresis. Due to patient present hypertonic hypernatremia most likely secondary to dehydration and NG tube output due to SBO with switch IV fluids from LR to D5W half NS at 100 cc/h. Exam Vital Signs Temp Pulse Resp BP Pulse Ox O2 Del Method 97.3 F 64 20 127/69 97 Room Air 07/12/24 04:00 07/12/24 04:00 07/12/24 04:00 07/12/24 04:00 07/12/24 04:00 07/12/24 04:00 Narrative Exam General: No acute distress, well appearing, alert, interactive, AOx4, NG tube in place draining bilious content HEENT: NC/AT, PERRL, EOMI, Good conjugate gaze, moist mucous membranes, oropharynx clear. Neck: Supple, No masses, No adenopathy, carotid pulse 2+ bilaterally without bruits, No JVD, normal range of motion. Chest: Symmetrical, atraumatic, and with equal expansion , Nontender on palpation no deformity and no crepitus. CVS: S1 and S2 present, Regular rate and rhythm, No murmurs, rubs or gallops perceived during auscultation. Lungs: Normal respiratory effort, CTAB, no wheezing, rhonchi or rales perceived during auscultation, No intercostal or subcostal retraction. Abdomen : Distended, mild tenderness to palpation on all abdominal quadrants, no guarding ,no rebound, hypoactive bowel sounds Extremities: 1+ edema bilateral lower extremities, warm well perfused, normal tone and ROM, strength and sensation intact, cap refill less than 2, +2 dp equal bilaterally, able to move all 4 extremities spontaneously. Skin: Intact, no rashes, no lesions, no erythema or jaundice noted Neuro: AOx4, no focal neurologic deficits noted, GCS 15 Psych: Appropriate mood and affect. Objective Labs 07/12/24 04:30 07/12/24 04:30 Labs: Laboratory Results - last 24 hr 07/12/24 04:30 WBC 6.2 RBC 3.81 L Hgb 11.5 L Hct 35.5 L MCV 93 MCH 30.2 MCHC 32.4 RDW Std Deviation 48.5 H Plt Count 170 Neut % (Auto) 63 Lymph % (Auto) 16 [place] % (Auto) 19 H Eos % (Auto) 1 Baso % (Auto) 0 Neut # (Auto) 3.9 Lymph # (Auto) 1.0 [place] # (Auto) 1.2 H Eos # (Auto) 0.1 Baso # (Auto) 0.0 Immature Gran # (Auto) 0.02 H Absolute Nucleated RBC 0.00 Immature Gran % 0 Nucleated RBC % 0 Sodium 151 H Potassium 4.0 Chloride 105 Carbon Dioxide 33.6 H Anion Gap 12 BUN 83 H Creatinine 3.8 H Estim Creat Clear Calc 16.5 L eGFR 15 L BUN/Creatinine Ratio 22 H Glucose 119 H Calculated Osmolality 325 H Calcium 8.5 Corrected Calcium 8.7 Phosphorus 6.6 H Magnesium 2.4 Total Bilirubin 0.8 AST 19 ALT 12 Alkaline Phosphatase 57 Total Protein 6.8 Albumin 3.7 Globulin 3.1 Albumin/Globulin Ratio 1.2 Quality Measures Quality Measures none Advance care planning discussed with:: patient Assessment & Plan Assessment Current Active Medications: Generic Name Dose Route Start Last Admin Trade Name Freq PRN Reason Stop Dose Admin Hydralazine HCl 10 mg 07/11/24 09:40 Hydralazine Inj 20 Mg/Ml Vial IV 08/10/24 09:44 Q6H PRN SBP >170 DPB >110 Lactated Ringer's 1,000 mls @ 150 mls/hr 07/11/24 12:17 07/12/24 02:00 Lactated Ringers IV 08/10/24 12:16 150 mls/hr .[id number] WILIAN Administration Metoclopramide HCl 5 mg 07/11/24 14:30 07/12/24 05:39 Metoclopramide Inj 5 Mg/Ml Vial 2 Ml IVP 08/10/24 14:29 5 mg Q6HR WILIAN Administration Protocol Morphine Sulfate 1 mg 07/10/24 17:03 07/10/24 19:06 Morphine Sulf Inj 10 Mg/Ml Vial IVP 07/15/24 17:02 1 mg Q4HR PRN Administration PAIN SCALE 7-10 (Severe Pantoprazole Sodium 40 mg 07/10/24 17:15 07/11/24 08:32 Pantoprazole Inj 40 Mg Vial IVP 08/09/24 17:14 40 mg QDAY WILIAN Administration Plan 83-year-old man with past medical history of CAD s/p open heart surgery, hypertension, CKD who came to the ED with chief complaint of abdominal pain. Patient stated that approximately 3 days ago after eating some beans and tortillas hours later started having nausea and multiple episodes of vomiting associated to severe pain until last night that he describes the pain as diffuse and unbearable for which he decided to come to the ED. He stated he was passing gas until last night and that his last bowel movement was this morning and was very scant. Patient denies fever, chills, chest pain shortness of breath or any other associated symptom. He stated that he thinks today probably he vomited blood.Pertinent labs: WBCs within normal limits, hemoglobin 13.9, creatinine 2.7 BUN 59 EGFR 23, lactic acid 3.1, T. bili 1.5 Imaging: CT abdomen pelvis showed Small bowel obstruction pattern, 12 mm fat-containing umbilical hernia, very heavy calcification of right origin of renal artery with no critical stenosis. At the ED the patient received: IV fluids 2 L bolus LR, ondansetron IV, and Reglan IV, NG tube was placed and patient will be admitted for further treatment and management of SBO and GIORGI on CKD #Hypotonic hypernatremia Most likely secondary to dehydration and GI losses due to NG tube in the setting of SBO Na+ 151 ? IV fluids D5W half NS 100 cc/h ? Follow-up CMP #Small bowel obstruction Patient present 3 days of nausea vomiting and severe abdominal pain Last bowel movement was this morning that he stated that was a scant, was passing gas until last night CT abdomen pelvis showed Small bowel obstruction pattern, 12 mm fat-containing umbilical hernia General Surgery was consulted we will appreciate recommendation ? IV D5W half NS 100 cc/h ? Protonix 40 mg IV daily ? IV morphine 1 mg every 4 hours as needed ? Low intermittent suction ? Follow-up CBC and CMP #Gastric outlet Small bowel series showed gastric outlet and small bowel obstruction Gastroenterology was consulted who recommended to start Reglan IV 5 mg every 6 hours ? DC ondansetron ? IV Reglan 5 mg every 6 hours #Rule out upper GI bleed Possibly secondary to erosive gastritis vs Domi-Chou vs PUD? Patient had multiple episodes of vomiting for the last 3 days that could be causing mucosal erosion Less likely GI bleed at this moment hemoglobin stable 13.9 ? Follow-up occult blood test ? Follow-up CBC #GIORGI on CKD stage IIIb Most likely prerenal in the setting of dehydration Patient is following up for CKD and nephrology as an outpatient CT abdomen pelvis shows heavy calcification of right origin of renal artery with no critical stenosis Creatinine baseline around 1.4 Creatinine uptrending to 3.78 Dr Galeano nephrology was consulted who recommended to start patient on IV Bumex 2 mg every 6 hours - IV fluids D5 W half NS 100 cc/h - Strict ins and outs - Avoid nephrotoxic drugs - Renally dose medications - Follow-up renal ultrasound - Follow-up CMP #Hyperphosphatemia Most likely secondary to GIORGI on CKD Nephrology Dr. Galeano was consulted we will appreciate recommendations ? Sevelamer 800 mg 3 times daily ? Follow-up CMP and phosphorus #History of CAD status post open heart surgery ? Patient is n.p.o. resume any home medications when reconciled and patient is able to eat #History of hypertension Patient is normotensive at this moment ? Hold home medications at the moment due to blood pressures on the soft side and patient is n.p.o. ? Hydralazine 10 IV every 6 hours as needed for SBP [id number] #Lactic acidosis resolved Possibly secondary to impaired lactate clearance in the setting of CKD vs bowel ischemia? CT abdomen pelvis shows small bowel obstruction pattern, 12 mm fat-containing umbilical hernia without incarceration Lactic acid trend down to normal limits #Hyperbilirubinemia resolved Most likely secondary to severe vomiting Liver enzymes within normal limits, alk phos normal less likely obstruction pattern T. bili down trended to normal limits ? Follow-up CMP Disposition: MedSurg Fluids and Diet: N.p.o./IV fluids D5W half NS 100 cc/h DVT prophylaxis: SCD GI prophylaxis: Protonix Clemons: None CODE STATUS: Full code Patient discussed with my attending Dr Vesta Castro MD PGY-3 Disclaimer: Despite multiple revisions, due to the dictation software being used, the document bellow may not be free of grammatical errors including phonetic/typographic errors. However, this does not deter from our commitment to providing health care in the patient's best interest in mind. Attending Provider Attestation/Addendum I attest that I was physically present for the evaluation, physical examination, lab and imaging review of the patient with the residents. I discussed the case with the residents and agree with the findings and plans of care as documented above. At bedside today, patient is states she feels better compared to arrival but still has not had a bowel movement. He did pass some gas. Continues to be on NG tube under low intermittent suction. Small bowel series still concerning for bowel obstruction but did show small amount of contrast in the colon. Discussed with general surgery, recommended conservative management with for now. Also discussed with gastroenterology regarding possible gastric outlet obstruction, patient is planned for upper GI endoscopy once his SBO resolves to rule out any pyloric pathology. Patient continues to have worsening kidney function, discussed with patient's integration technician Dr. Galeano, recommended restarting patient on Bumex 2 mg every 4 hour along with D5 half NS, orders placed accordingly, appreciate recommendations. Basilio Lemons MD
[2024-07-12] MEDS: PANTOPRAZOLE INJ 40 MG VIAL IVP (09:08)
[2024-07-12] MEDS: DEXTROSE 5%-0.45% NS 1,000 ML 100 ML IV ×2 (09:08→18:37)
[2024-07-12] MEDS: SEVELAMER CARBONATE 800 MG TABLET PO ×2 (12:20→17:14)
--- NOTE | 2024-07-12 12:25 | PD.SURCONS ---
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 Pt reports symptoms began a few days ago with abdominal pain that was slowly building, and he had episodes of nausea/vomiting prompting him to seek care in ER. Pt initially states he has never had similar symptoms but then does recount that 5 years ago he had an NG. He states his last BM was two days ago and was normal, and he has been passing gas as recently as today. In ER here workup was consistent with SBO, pt underwent small bowel series which did show minimal contrast in the colon but pt was noted to have delayed passage from the stomach and persistently dilated small bowel loops. So far today pt had 600cc NG output and 1L overnight, however he states he feels better than on admission with no pain, no nausea and is feeling hungry and thirsty. He reports having a colonoscopy 5 years ago and he was told he had signs of constipation PMH: HTN, HLD, CAD PSHx: CABG years ago Meds: includes ASA 81, no other antiplt or anticoagulation Allergies: NKDA Review of Systems Review of Systems ROS Unobtainable: All systems reviewed & no additional complaints except as documented Meds Home Medications and Allergies Home Medications ?Medication ?Instructions ?Recorded ?Confirmed ?Type aspirin 81 mg capsule 81 mg PO QDAY 08/10/23 07/11/24 History atorvastatin 20 mg tablet (Lipitor) 20 mg PO QDAY 08/10/23 07/11/24 History carvedilol 12.5 mg tablet 12.5 mg PO BID 08/10/23 07/11/24 History felodipine 5 mg tablet,extended 5 mg PO QDAY 08/10/23 07/11/24 History release 24 hr hydrochlorothiazide 12.5 mg capsule 12.5 mg PO QAM 08/10/23 07/11/24 History lisinopril 20 mg tablet 10 mg PO QDAY 08/10/23 07/11/24 History pantoprazole 40 mg tablet,delayed 40 mg PO QDAY 08/10/23 07/11/24 History release (Protonix) furosemide 40 mg tablet (Lasix) 40 mg PO QDAY 07/11/24 07/11/24 History terazosin 5 mg capsule 5 mg PO BID 07/11/24 07/11/24 History Allergies Allergy/AdvReac Type Severity Reaction Status Date / Time No Known Allergies Allergy Verified 08/10/23 18:16 Exam Vital Signs Temp Pulse Resp BP Pulse Ox O2 Del Method 97.9 F 68 16 137/60 H 96 Room Air 07/12/24 12:00 07/12/24 12:00 07/12/24 12:00 07/12/24 12:00 07/12/24 12:00 07/12/24 12:00 Constitutional Constitutional: no acute distress Routine Respiratory Exam Respiratory: Present no resp distress Routine Abdominal Exam Abdominal: Present soft; Absent tenderness or distended Results Results: Laboratory Laboratory results: results reviewed Results: Imaging CT scan - abdomen: report reviewed and image reviewed Assessment & Plan Plan 83M with HTN, HLD, CAD s/p CABG in past on ASA 81 presenting with signs and symptoms of SBO. As pt clinically feels well with passage of gas and improvement in pain, and because the small bowel series did show contrast in his colon I explained that it is reasonable to continue conservative management for now. Given high output of NG we will leave it in place for today but I encouraged pt to ambulate with assistance. I did explain that if pt were to develop severe abdominal pain, and/or if he continues to have high NG output without clear bowel function we will discuss the option of surgery NG to LIS Encourage OOB/ambulation Strict I&O
[2024-07-12] MEDS: BUMETANIDE INJ 0.25 MG/ML VIAL 4 ML 2 MG IVP ×2 (14:14→23:43)
--- NOTE | 2024-07-12 18:37 | ESPR_ITS ---
Documentation for date of: 07/12/24 Subjective Subjective Interval history: Latest abdominal x-ray shows dilated small bowel but no air-fluid levels Contrast in the right colon Patient feeling much better but the NGT output continues Exam Vital Signs Temp Pulse Resp BP Pulse Ox O2 Del Method 97.6 F 68 17 150/58 H 96 Room Air 07/12/24 16:00 07/12/24 16:00 07/12/24 16:00 07/12/24 16:00 07/12/24 16:00 07/12/24 16:00 Objective Labs 07/12/24 04:30 07/12/24 04:30 Labs: Laboratory Results - last 24 hr 07/12/24 04:30 WBC 6.2 RBC 3.81 L Hgb 11.5 L Hct 35.5 L MCV 93 MCH 30.2 MCHC 32.4 RDW Std Deviation 48.5 H Plt Count 170 Neut % (Auto) 63 Lymph % (Auto) 16 [place] % (Auto) 19 H Eos % (Auto) 1 Baso % (Auto) 0 Neut # (Auto) 3.9 Lymph # (Auto) 1.0 [place] # (Auto) 1.2 H Eos # (Auto) 0.1 Baso # (Auto) 0.0 Immature Gran # (Auto) 0.02 H Absolute Nucleated RBC 0.00 Immature Gran % 0 Nucleated RBC % 0 Sodium 151 H Potassium 4.0 Chloride 105 Carbon Dioxide 33.6 H Anion Gap 12 BUN 83 H Creatinine 3.8 H Estim Creat Clear Calc 16.5 L eGFR 15 L BUN/Creatinine Ratio 22 H Glucose 119 H Calculated Osmolality 325 H Calcium 8.5 Corrected Calcium 8.7 Phosphorus 6.6 H Magnesium 2.4 Total Bilirubin 0.8 AST 19 ALT 12 Alkaline Phosphatase 57 Total Protein 6.8 Albumin 3.7 Globulin 3.1 Albumin/Globulin Ratio 1.2 Impressions Impression: Small bowel obstruction/ileus Continue conservative management with the NGT suction and IV fluids Assessment & Plan A&P Narrative Small bowel obstruction/ileus Continue NGT suction Contrast is moving Some of it is all in the right colon hopefully this is an incomplete obstruction and it will resolve with intermittent Gomco suction Patient does have a some kind of a gastroparesis with bloody vomiting on presentation Once the SBO resolves we will consider upper endoscopy to make sure there is no partial stenosis of the pyloric channel Other medical problems include CKD followed 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
[2024-07-12 18:41] LABS: Anion Gap 10 (7-16); BUN/Creatinine Ratio 21 Ratio (12-20); Blood Urea Nitrogen 82 mg/dL (9-23); Calcium 8.5 mg/dL (8.3-10.6); Calcium (Corrected) 8.5 mg/dL (8.5-10.1); Carbon Dioxide 36.1 mMol/L (20.0-31.0); Chloride 104 mMol/L (98-107); Estimated Creatinine Clearance 15.7 mL/min (>60); Glucose 158 mg/dL (74-106); Osmolality,Calculated 325 (275-295); Potassium 3.6 mMol/L (3.4-5.1); Sodium 150 mMol/L (136-145); eGFR 14 See Note
[2024-07-13] VITALS (14 sets, daily range): BP systolic 123–151; BP diastolic 57–92; PULSE 62–96; RESP 14–22; TEMP 36.1–36.6; O2SAT 94–98; BMI 30.7
[2024-07-13] MEDS: METOCLOPRAMIDE INJ 5 MG/ML VIAL 2 ML IVP ×3 (05:19→18:37)
[2024-07-13] MEDS: BUMETANIDE INJ 0.25 MG/ML VIAL 4 ML 2 MG IVP (05:22)
[2024-07-13] MEDS: DEXTROSE 5%-0.45% NS 1,000 ML 100 ML IV ×2 (05:26→18:37)
[2024-07-13 06:00] LABS: Basophils % (Auto) 0 % (0-2.5); Eosinophils # (Auto) 0.2 Thou/mm3 (0.0-0.5); Eosinophils % (Auto) 2 % (0-10); Hematocrit 37.8 % (41.0-53.0); Hemoglobin 12.4 g/dL (13.5-16.0); Immature Granulocytes % (Auto) 0 % (0-0); Immature Granulocytes Auto 0.02 Thou/mm3 (0.00-0.00); Lymphocytes # (Auto) 1.2 Thou/mm3 (1.0-4.8); Lymphocytes % (Auto) 16 % (10-50); Mean Corpuscular HGB Conc 32.8 g/dl (31.0-37.0); Mean Corpuscular Volume 91 fL (80-100); Monocytes # (Auto) 1.3 Thou/mm3 (0.0-0.8); Monocytes % (Auto) 16 % (0-12); Neutrophils % (Auto) 65 % (37-80); Nucleated Red Blood Cell % 0 /100 WBC (0); Platelet Count 211 Thou/mm3 (140-440); RDW Standard Deviation 47.7 fL (35.1-43.9); Red Blood Count 4.14 Miln/mm3 (4.50-5.90); White Blood Count 7.7 Thou/mm3 (3.8-10.6)
[2024-07-13 06:34] LABS: Alanine Aminotransferase 14 U/L (10-49); Albumin, Serum 3.9 gm/dL (3.4-4.8); Albumin/Globulin Ratio 1.2 (1.2-2.2); Alkaline Phosphatase 59 U/L (46-116); Anion Gap 11 (7-16); Aspartate Amino Transferase 17 U/L (0-34); BUN/Creatinine Ratio 23 Ratio (12-20); Bilirubin,Total 0.9 mg/dL (0.3-1.2); Blood Urea Nitrogen 82 mg/dL (9-23); Calcium 8.7 mg/dL (8.3-10.6); Calcium (Corrected) 8.8 mg/dL (8.5-10.1); Carbon Dioxide 38.5 mMol/L (20.0-31.0); Chloride 101 mMol/L (98-107); Creatinine (Component) 3.6 mg/dL (0.6-1.3); Estimated Creatinine Clearance 17.4 mL/min (>60); Globulin 3.2 gm/dL (2.3-3.5); Glucose 148 mg/dL (74-106); Magnesium 2.2 mg/dL (1.6-2.6); Osmolality,Calculated 325 (275-295); Phosphorous 4.5 mg/dL (2.4-5.1); Potassium 3.3 mMol/L (3.4-5.1); Sodium 150 mMol/L (136-145); Total Protein 7.1 gm/dL (5.7-8.2); eGFR 16 See Note
[2024-07-13] MEDS: SEVELAMER CARBONATE 800 MG TABLET PO ×2 (08:18→12:52)
[2024-07-13] MEDS: PANTOPRAZOLE INJ 40 MG VIAL IVP (08:18)
--- NOTE | 2024-07-13 12:15 | PC.NURSE ---
Dr. Galeano came to see patient at 11:55. Dr. Murillo came to see patient at 12:10
--- NOTE | 2024-07-13 13:29 | ESPR_ITS ---
<Statement entered by Yuridia Castro MD - 07/13/24 16:21> I discussed with and supervised the technology risk intern physician who took care of this patient. I personally saw and examined the patient and discussed the assessment and plan with the entire medicine team, including my attending Dr. Lemons, I agree with the assessment and plan as documented below Patient seen and examined at bedside today. Labs and imaging reviewed. Patient continues to be oliguric, we will discontinue Bumex IV and continue IV fluids D5W half NS, patient still does not have a bowel movement, NG tube output overnight was 1 L General Surgery is following up the case who recommend the patient SBO did not resolve we will have exploratory laparotomy this afternoon. Yuridia Castro MD PGY-3 Disclaimer: Despite multiple revisions, due to the dictation software being used, the document bellow may not be free of grammatical errors including phonetic/typographic errors. However, this does not deter from our commitment to providing health care in the patient's best interest in mind. Documentation for date of: 07/13/24 Subjective Subjective Interval history: Patient seen today at the bedside fine awake, alert, oriented x 3. No overnight events reported. Vital signs stable at this time. Labs significant for hypokalemia electrolytes repleted as needed. patient was started on bumex and IVFs as per nephrology recommendations, however will dc bumex today. Patient had workup for SBO continues to have delayed passage from stoma and consistently dilated small bowel loops. General surgery aware and will take the patient 2 OR today for laparotomy possible bowel resection, possible ostomy. Exam Vital Signs Temp Pulse Resp BP Pulse Ox O2 Del Method 97.9 F 62 18 123/65 95 Room Air 07/13/24 08:00 07/13/24 08:00 07/13/24 08:00 07/13/24 08:00 07/13/24 08:00 07/13/24 04:00 Narrative Exam Physical Exam GENERAL: NAD, AAOx3, NGT in place HEENT: Moist mucosa. Eyes open, symmetrical, & clear CARDIO: Heart RRR, no obvious murmurs PULM: No noted coughing/dyspnea CTA B/L, no R/W/R GI: Abdomen soft, distended, mild tenderness pain on palpation. hypoactive bowel sounds SKIN/MSK/EXT: No wounds/rashes/edema/amputations, no pain on palpation. Pedal pulses present B/L NEURO: AAOx3, no focal neuro deficits, able to move all 4 extremities Objective Labs 07/13/24 04:41 07/13/24 15:21 Labs: Laboratory Results - last 24 hr 07/12/24 07/13/24 18:11 04:41 WBC 7.7 RBC 4.14 L Hgb 12.4 L Hct 37.8 L MCV 91 MCH 30.0 MCHC 32.8 RDW Std Deviation 47.7 H Plt Count 211 D Neut % (Auto) 65 Lymph % (Auto) 16 [place] % (Auto) 16 H Eos % (Auto) 2 Baso % (Auto) 0 Neut # (Auto) 5.0 Lymph # (Auto) 1.2 [place] # (Auto) 1.3 H Eos # (Auto) 0.2 Baso # (Auto) 0.0 Immature Gran # (Auto) 0.02 H Absolute Nucleated RBC 0.00 Immature Gran % 0 Nucleated RBC % 0 Sodium 150 H 150 H Potassium 3.6 3.3 L Chloride 104 101 Carbon Dioxide 36.1 H 38.5 H Anion Gap 10 11 BUN 82 H 82 H Creatinine 4.0 H 3.6 H Estim Creat Clear Calc 15.7 L 17.4 L eGFR 14 L* 16 L BUN/Creatinine Ratio 21 H 23 H Glucose 158 H 148 H Calculated Osmolality 325 H 325 H Calcium 8.5 8.7 Corrected Calcium 8.5 8.8 Phosphorus 5.0 4.5 Magnesium 2.2 Total Bilirubin 0.9 AST 17 ALT 14 Alkaline Phosphatase 59 Total Protein 7.1 Albumin 4.0 3.9 Globulin 3.2 Albumin/Globulin Ratio 1.2 Quality Measures Quality Measures none Advance care planning discussed with:: patient Assessment & Plan Assessment Current Active Medications: Generic Name Dose Route Start Last Admin Trade Name Freq PRN Reason Stop Dose Admin Hydralazine HCl 10 mg 07/11/24 09:40 Hydralazine Inj 20 Mg/Ml Vial IV 08/10/24 09:44 Q6H PRN SBP >170 DPB >110 Dextrose/Sodium Chloride 1,000 mls @ 100 mls/hr 07/12/24 08:30 07/13/24 05:26 D5-1/2ns IV 08/11/24 08:29 100 mls/hr .Q10H WILIAN Administration Metoclopramide HCl 5 mg 07/11/24 14:30 07/13/24 12:51 Metoclopramide Inj 5 Mg/Ml Vial 2 Ml IVP 08/10/24 14:29 5 mg Q6HR WILIAN Administration Protocol Morphine Sulfate 1 mg 07/10/24 17:03 07/10/24 19:06 Morphine Sulf Inj 10 Mg/Ml Vial IVP 07/15/24 17:02 1 mg Q4HR PRN Administration PAIN SCALE 7-10 (Severe Pantoprazole Sodium 40 mg 07/10/24 17:15 07/13/24 08:18 Pantoprazole Inj 40 Mg Vial IVP 08/09/24 17:14 40 mg QDAY WILIAN Administration Sevelamer Carbonate 800 mg 07/12/24 12:00 07/13/24 12:52 Sevelamer Carbonate 800 Mg Tablet PO 08/11/24 11:59 800 mg TIDWM WILIAN Administration Plan 83-year-old man with past medical history of CAD s/p open heart surgery, hypertension, CKD who came to the ED with chief complaint of abdominal pain. Patient stated that approximately 3 days ago after eating some beans and tortillas hours later started having nausea and multiple episodes of vomiting associated to severe pain until last night that he describes the pain as diffuse and unbearable for which he decided to come to the ED. He stated he was passing gas until last night and that his last bowel movement was this morning and was very scant. Patient denies fever, chills, chest pain shortness of breath or any other associated symptom. He stated that he thinks today probably he vomited blood.Pertinent labs: WBCs within normal limits, hemoglobin 13.9, creatinine 2.7 BUN 59 EGFR 23, lactic acid 3.1, T. bili 1.5 Imaging: CT abdomen pelvis showed Small bowel obstruction pattern, 12 mm fat-containing umbilical hernia, very heavy calcification of right origin of renal artery with no critical stenosis. At the ED the patient received: IV fluids 2 L bolus LR, ondansetron IV, and Reglan IV, NG tube was placed and patient will be admitted for further treatment and management of SBO and GIORGI on CKD #Hypotonic hypernatremia Most likely secondary to dehydration and GI losses due to NG tube in the setting of SBO Na+ 151 ? IV fluids D5W half NS 100 cc/h ? Follow-up CMP #Small bowel obstruction Patient present 3 days of nausea vomiting and severe abdominal pain Last bowel movement was this morning that he stated that was a scant, was passing gas until last night CT abdomen pelvis showed Small bowel obstruction pattern, 12 mm fat-containing umbilical hernia General Surgery was consulted we will appreciate recommendation - pending OR today with Dr. Murillo ? IV D5W half NS 100 cc/h ? Protonix 40 mg IV daily ? IV morphine 1 mg every 4 hours as needed ? Low intermittent suction #Gastric outlet Small bowel series showed gastric outlet and small bowel obstruction Gastroenterology was consulted who recommended to start Reglan IV 5 mg every 6 hours ? DC ondansetron ? IV Reglan 5 mg every 6 hours #Rule out upper GI bleed Possibly secondary to erosive gastritis vs Domi-Chou vs PUD? Patient had multiple episodes of vomiting for the last 3 days that could be causing mucosal erosion Less likely GI bleed at this moment hemoglobin stable 13.9 ? Follow-up occult blood test ? Follow-up CBC #GIORGI on CKD stage IIIb Most likely prerenal in the setting of dehydration Patient is following up for CKD and nephrology as an outpatient CT abdomen pelvis shows heavy calcification of right origin of renal artery with no critical stenosis Creatinine baseline around 1.4 Creatinine uptrending to 3.78 Dr Galeano nephrology was consulted who recommended to start patient on IV Bumex 2 mg every 6 hours - Dc bumex - IV fluids D5 W half NS 100 cc/h - Strict ins and outs - Avoid nephrotoxic drugs - Renally dose medications - Follow-up renal ultrasound, will order once SBO is resolved #Hyperphosphatemia Most likely secondary to GIORGI on CKD Nephrology Dr. Galeano was consulted we will appreciate recommendations ? Sevelamer 800 mg 3 times daily ? Follow-up CMP and phosphorus #History of CAD status post open heart surgery ? Patient is n.p.o. resume any home medications when reconciled and patient is able to eat #History of hypertension Patient is normotensive at this moment ? Hold home medications at the moment due to blood pressures on the soft side and patient is n.p.o. ? Hydralazine 10 IV every 6 hours as needed for SBP [id number] #Lactic acidosis resolved Possibly secondary to impaired lactate clearance in the setting of CKD vs bowel ischemia? CT abdomen pelvis shows small bowel obstruction pattern, 12 mm fat-containing umbilical hernia without incarceration Lactic acid trend down to normal limits #Hyperbilirubinemia resolved Most likely secondary to severe vomiting Liver enzymes within normal limits, alk phos normal less likely obstruction pattern T. bili down trended to normal limits ? Follow-up CMP Patient discussed with my senior Dr. Castro PGY-[address] Vesta Price MD PGY-1 Disposition: MedSurg Fluids and Diet: N.p.o./IV fluids D5W half NS 100 cc/h DVT prophylaxis: SCD GI prophylaxis: Protonix Clemons: None CODE STATUS: Full code Disclaimer: Despite multiple revisions, due to the dictation software being used, the document bellow may not be free of grammatical errors including phonetic/typographic errors. However, this does not deter from our commitment to providing health care in the patient's best interest in mind. Attending Provider Attestation/Addendum I attest that I was physically present for the evaluation, physical examination, lab and imaging review of the patient with the residents. I discussed the case with the residents and agree with the findings and plans of care as documented above. At bedside, patient continues to be on NG tube with low intermittent suction. Had more than 1 L fluid drained out of the stomach overnight and furthermore this morning. He was able to pass some flatus but still has not have any bowel movement. Continues to be alert and oriented, able to answer questions and follow commands appropriately. Noted to have sodium of 150, we will continue with D5W half NS. Also has potassium of 3.3, repleted accordingly. BUN/creatinine slightly improved to 82/3.6, patient appears dry on exam with large amount of fluid being drained from stomach, we will discontinue Bumex. Patient underwent exploratory laparotomy with general surgery, was found to have distal small bowel with erythematous serosa and mesentery, with an area of narrowed lumen which normalized intraoperatively. But was not found to have any masses. We will continue with NG suction, IV fluid, Protonix, Reglan. We will continue to monitor closely for renal function. Basilio Lemons MD
--- NOTE | 2024-07-13 13:31 | ESPR_ITS ---
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 Pt reports symptoms began a few days ago with abdominal pain that was slowly building, and he had episodes of nausea/vomiting prompting him to seek care in ER. Pt initially states he has never had similar symptoms but then does recount that 5 years ago he had an NG. He states his last BM was two days ago and was normal, and he has been passing gas as recently as today. In ER here workup was consistent with SBO, pt underwent small bowel series which did show minimal cont rast in the colon but pt was noted to have delayed passage from the stomach and persistently dilated small bowel loops. So far today pt had 600cc NG output and 1L overnight, however he states he feels better than on admission with no pain, no nausea and is feeling hungry and thirsty. He reports having a colonoscopy 5 years ago and he was told he had signs of constipation PMH: HTN, HLD, CAD PSHx: CABG years ago Meds: includes ASA 81, no other antiplt or anticoagulation Allergies: NKDA Narrative: Denies pain and nausea but had >1L NG output overnight and approximately 600cc today, has not had a BM. Pt seen by his manager quantitative who recommends that if surgery is needed it should be done ROQUE Exam Vital Signs Temp Pulse Resp BP Pulse Ox O2 Del Method 97.9 F 62 18 123/65 95 Room Air 07/13/24 08:00 07/13/24 08:00 07/13/24 08:00 07/13/24 08:00 07/13/24 08:00 07/13/24 04:00 Constitutional Constitutional: no acute distress Routine Respiratory Exam Respiratory: Present no resp distress Routine Abdominal Exam Abdominal: Present soft and distended (moderate distention); Absent tenderness Results Results: Laboratory Laboratory results: results reviewed Results: Imaging CT scan - abdomen: report reviewed and image reviewed Assessment & Plan Plan 83M with HTN, HLD, CAD s/p CABG in past on ASA 81 presenting with signs and symptoms of SBO. 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 I informed that surgical exploration would be the only way to fully evaluate his small bowel for any mechanical obstruction, and explained risks of surgery including the possibility of a negative exploration, postop obstruction or ileus, anastomotic leak if an anastomosis is necessary, bleeding, infection and hernia. All questions were answered and pt is agreeable to proceeding OR today for laparotomy, possible bowel resection, possible ostomy
--- NOTE | 2024-07-13 15:43 | PC.SS ---
Patient is alert/oriented. [place]ijani speaking only. Residential Sales present. Patient's niece present as well. Patient was able to verify demographics. Patient states he resides with his niece, Maximino Bryan. Patient is independent with ADL's. No DME. Patient was admitted for sbo. Patient states his family transports him to all appointments. PCP: [facility]. Last appt. was in June. Pharmacy: [facility]/ Alt medical decision maker: Maximino Bryan @ [phone]. Patient d/c plan: return home. Patient states he has [employer] as well as [employer]. Physician states patient may have surgery today or tomorrow.
[2024-07-13 16:09] LABS: Albumin, Serum 3.8 gm/dL (3.4-4.8); Anion Gap 10 (7-16); BUN/Creatinine Ratio 24 Ratio (12-20); Blood Urea Nitrogen 78 mg/dL (9-23); Calcium 8.6 mg/dL (8.3-10.6); Calcium (Corrected) 8.8 mg/dL (8.5-10.1); Carbon Dioxide 39.2 mMol/L (20.0-31.0); Chloride 101 mMol/L (98-107); Creatinine (Component) 3.2 mg/dL (0.6-1.3); Estimated Creatinine Clearance 19.6 mL/min (>60); Glucose 153 mg/dL (74-106); Osmolality,Calculated 324 (275-295); Potassium 3.1 mMol/L (3.4-5.1); Sodium 150 mMol/L (136-145); eGFR 19 See Note
--- NOTE | 2024-07-13 16:49 | PD.SUROPNT ---
Date of Procedure 07/13/24 Pre Op Diagnosis Small bowel obstruction Post Op Diagnosis Small bowel obstruction due to intra-abdominal adhesion Procedure Exploratory laparotomy, examination of small bowel Findings Distal small bowel with erythematous serosa and mesentery, with an area of narrowed lumen which normalized intraoperatively, no palpable masses Procedure Description After discussion of risks and benefits, patient was brought to the operating room, SCDs were placed and general anesthesia was induced. He received preoperative antibiotics and was prepped and draped in the usual sterile fashion. After timeout a midline incision was made with #10 blade and the tissues were dissected with electrocautery. When the peritoneum was reached it was elevated with tonsil clamps and incised with Metzenbaum scissors. When the abdomen was entered the small bowel was eviscerated and noted to have diffuse dilatation up to the distal small bowel, at which point there were signs that the small bowel had been extrinsically compressed, with erythema of the serosa and an area of erythema and congestion of the associated mesentery. It seems that the act of evisceration lysed this adhesion; in the same spot the lumen initially appeared narrowed however it began to normalize in caliber and the small intestinal contents were easily milked distally from the terminal ileum to the ligament of Treitz. I ran the small bowel twice and there were no palpable masses and no areas of necrosis. I also palpated the colon and liver and there were no obvious masses. The small bowel was returned to the abdomen and the fascia was closed with a #1 PDS. The incision was irrigated and closed with cherri and covered with Telfa, gauze and Tegaderm. Patient was extubated and brought to PACU in stable condition Pathology / specimen None Estimated Blood Loss 10 Surgeon Sarah Murillo MD Surgical Staff Operation Date: 07/13/24 15:15 Case Staff Anesthesiologist: José Casanova RNclothing and textiles teacher: Hailey Rodríguez
--- NOTE | 2024-07-13 17:26 | EKG_ITS ---
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
--- NOTE | 2024-07-13 18:04 | PD.ANESPROG ---
Documentation for date of: 07/13/24 ANESTHESIA NOTE: Patient had GETA for emergent ex lap for bowel obstruction earlier today. Pre-op, he was alert and calm, abdomen appeared distended, family reported he had nausea and vomiting recently. He has h/o HTN, CAD s/p CABG. I obtained his cardiac record from his cardiology, showed EF 40%, stress test negative (records placed in chart). He had nasal canula in place but not connected to O2 and also NGT and martin in place. His labs showed elevated Na and BUN/Cr. On arrival to OR, his O2 sat was 88% on room air but he was alert and calm. His R AC IV was not running properly so new IV placed L wrist. His NG tube was connected to suction and it immediately put out about 300 cc of light greenish liquid and another 500 cc during the case. He was intubated and extubated uneventfully intra-op and he did well during the surgery. His rhythm was sinus with frequent PACs almost looking like A fib sometimes intra-op. He received about 600 cc of LR intra-op. He has been in PACU post op, doing well, resting comfortably, VSS. 12 lead EKG in PACU showed sinus with PACs. Will defer further management to the primary/floor team; recommend to resume his beta mabel unless contraindicated. I went to waiting room to update his daughter but did not see her. José Casanova MD Anesthesia Progress Note Progress Note Most recent Vital Signs: Last Vital Signs Temp 97.6 F 07/13/24 16:53 Pulse 70 07/13/24 16:53 Resp 14 07/13/24 16:53 BP 124/57 L 07/13/24 16:53 Pulse Ox 97 07/13/24 16:53 O2 Del Method Room Air 07/13/24 04:00 O2 Flow Rate 4 07/13/24 16:53
--- NOTE | 2024-07-13 18:05 | SUR.PHASEI ---
1653: pt arrived to PACU via bed with nasal airway in place, breathing unlabored, dressing to abdomen clean, dry, and intact, report from Benji UNDERWOOD and Dr Casanova 1800:Dr Casanova at bedside, EKG done and read by Dr Casanova-no new orders given, ok to transfer to room per Dr Casanova 1805: pt awake, alert, able to follow commands, breathing unlabored, dressing to abdomen clean, dry, and intact, pt denies pain, VS stable, report called to Crystal UNDERWOOD 1810: pt transferred to room at this time.
--- NOTE | 2024-07-13 18:06 | PC.NURSE ---
Received phone report from Kaykay UNDERWOOD in Post op.
--- NOTE | 2024-07-13 18:20 | PC.NURSE ---
Patient back from surgery at 18:20
[2024-07-13] MEDS: POTASSIUM CHL 10 mEq IVPB 10 MEQ/100 ML BAG 100 MEQ IV ×4 (18:37→22:16)
[2024-07-13] MEDS: MORPHINE SULF INJ 10 MG/ML VIAL IVP (22:28)
--- NOTE | 2024-07-13 22:35 | ESPR_ITS ---
Documentation for date of: 07/13/24 Subjective Subjective Interval history: Distal small bowel narrowing due to abdominal adhesions which were lysed and the stenosis improved without resection Exam Vital Signs Temp Pulse Resp BP Pulse Ox O2 Del Method O2 Flow Rate 97.1 F 80 18 139/92 H 95 Room Air 3 07/13/24 20:00 07/13/24 20:00 07/13/24 20:00 07/13/24 20:00 07/13/24 20:00 07/13/24 20:00 07/13/24 18:00 Objective Labs 07/13/24 04:41 07/13/24 15:21 Labs: Laboratory Results - last 24 hr 07/13/24 07/13/24 04:41 15:21 WBC 7.7 RBC 4.14 L Hgb 12.4 L Hct 37.8 L MCV 91 MCH 30.0 MCHC 32.8 RDW Std Deviation 47.7 H Plt Count 211 D Neut % (Auto) 65 Lymph % (Auto) 16 [place] % (Auto) 16 H Eos % (Auto) 2 Baso % (Auto) 0 Neut # (Auto) 5.0 Lymph # (Auto) 1.2 [place] # (Auto) 1.3 H Eos # (Auto) 0.2 Baso # (Auto) 0.0 Immature Gran # (Auto) 0.02 H Absolute Nucleated RBC 0.00 Immature Gran % 0 Nucleated RBC % 0 Sodium 150 H 150 H Potassium 3.3 L 3.1 L Chloride 101 101 Carbon Dioxide 38.5 H 39.2 H Anion Gap 11 10 BUN 82 H 78 H Creatinine 3.6 H 3.2 H Estim Creat Clear Calc 17.4 L 19.6 L eGFR 16 L 19 L BUN/Creatinine Ratio 23 H 24 H Glucose 148 H 153 H Calculated Osmolality 325 H 324 H Calcium 8.7 8.6 Corrected Calcium 8.8 8.8 Phosphorus 4.5 4.0 Magnesium 2.2 Total Bilirubin 0.9 AST 17 ALT 14 Alkaline Phosphatase 59 Total Protein 7.1 Albumin 3.9 3.8 Globulin 3.2 Albumin/Globulin Ratio 1.2 Impressions Impression: 3 Small bowel obstruction secondary to abdominal adhesions status post exploratory laparotomy with resection for small bowel continue postoperative care Assessment & Plan A&P Narrative Small bowel obstruction/ileus Continue NGT suction Contrast is moving Some of it is all in the right colon hopefully this is an incomplete obstruction and it will resolve with intermittent [place]om[place] suction Patient does have a some kind of a gastroparesis with bloody vomiting on presentation Once the SBO resolves we will consider upper endoscopy to make sure there is no partial stenosis of the pyloric channel Other medical problems include CKD followed by Dr. 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
[2024-07-14] VITALS (9 sets, daily range): BP systolic 133–155; BP diastolic 71–95; PULSE 65–94; RESP 16–95; TEMP 36.1–36.6; O2SAT 91–97
[2024-07-14] MEDS: METOCLOPRAMIDE INJ 5 MG/ML VIAL 2 ML IVP ×4 (00:08→17:13)
[2024-07-14] MEDS: ACETAMINOPHEN IVPB 1,000 MG/100 ML VIAL 250 MG IV ×4 (00:08→17:12)
[2024-07-14] MEDS: DEXTROSE 5%-0.45% NS 1,000 ML 100 ML IV (05:15)
[2024-07-14 06:11] LABS: Basophils % (Auto) 0 % (0-2.5); Eosinophils % (Auto) 0 % (0-10); Hematocrit 40.7 % (41.0-53.0); Hemoglobin 13.5 g/dL (13.5-16.0); Immature Granulocytes % (Auto) 0 % (0-0); Immature Granulocytes Auto 0.03 Thou/mm3 (0.00-0.00); Lymphocytes # (Auto) 0.8 Thou/mm3 (1.0-4.8); Lymphocytes % (Auto) 8 % (10-50); Mean Corpuscular HGB Conc 33.2 g/dl (31.0-37.0); Mean Corpuscular Hemoglobin 30.1 pg (25.0-35.0); Mean Corpuscular Volume 91 fL (80-100); Monocytes # (Auto) 0.8 Thou/mm3 (0.0-0.8); Monocytes % (Auto) 8 % (0-12); Neutrophils # (Auto) 8.7 Thou/mm3 (1.8-7.7); Neutrophils % (Auto) 84 % (37-80); Nucleated Red Blood Cell % 0 /100 WBC (0); Platelet Count 178 Thou/mm3 (140-440); RDW Standard Deviation 45.8 fL (35.1-43.9); Red Blood Count 4.48 Miln/mm3 (4.50-5.90); White Blood Count 10.4 Thou/mm3 (3.8-10.6)
[2024-07-14 06:33] LABS: Alanine Aminotransferase 12 U/L (10-49); Albumin, Serum 3.8 gm/dL (3.4-4.8); Albumin/Globulin Ratio 1.2 (1.2-2.2); Alkaline Phosphatase 59 U/L (46-116); Anion Gap 11 (7-16); Aspartate Amino Transferase 17 U/L (0-34); BUN/Creatinine Ratio 26 Ratio (12-20); Bilirubin,Total 1.2 mg/dL (0.3-1.2); Blood Urea Nitrogen 80 mg/dL (9-23); Calcium 8.8 mg/dL (8.3-10.6); Carbon Dioxide 36.7 mMol/L (20.0-31.0); Chloride 99 mMol/L (98-107); Creatinine (Component) 3.1 mg/dL (0.6-1.3); Estimated Creatinine Clearance 20.2 mL/min (>60); Globulin 3.1 gm/dL (2.3-3.5); Glucose 221 mg/dL (74-106); Magnesium 2.2 mg/dL (1.6-2.6); Osmolality,Calculated 323 (275-295); Phosphorous 5.3 mg/dL (2.4-5.1); Potassium 4.1 mMol/L (3.4-5.1); Sodium 147 mMol/L (136-145); Total Protein 6.9 gm/dL (5.7-8.2); eGFR 19 See Note
[2024-07-14] MEDS: PANTOPRAZOLE INJ 40 MG VIAL IVP (09:26)
--- NOTE | 2024-07-14 10:46 | ECHO_ITS ---
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 Right Ventricle The right ventricle not well visualized. Left Atrium Left atrium not well visualized. Right Atrium Right atrium is not well visualized. Atrial Septum The interatrial septum not well visualized. Aorta The aortic root and proximal ascending aorta are not well visualized. Mitral Valve The mitral valve is not well visualized. Aortic Valve The aortic valve is not well visualized. Tricuspid Valve The tricuspid valve is not well visualized. Pulmonic Valve The pulmonic valve is not well visualized. Vessels Inferior vena cava not well visualized. Pericardium There is no pericardial effusion. CONCLUSIONS Indication: Afib Patient had no diagnostic windows available. Poor images. possible normal LV function. Patienmt also uncooperative with inhaling & exhaling making for TDS Rodolfo Michaels (Electronically Signed) Final Date: 15 July 2024 18:58
--- NOTE | 2024-07-14 12:32 | ESPR_ITS ---
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 Pt reports symptoms began a few days ago with abdominal pain that was slowly building, and he had episodes of nausea/vomiting prompting him to seek care in ER. Pt initially states he has never had similar symptoms but then does recount that 5 years ago he had an NG. He states his last BM was two days ago and was normal, and he has been passing gas as recently as today. In ER here workup was consistent with SBO, pt underwent small bowel series which did show minimal cont rast in the colon but pt was noted to have delayed passage from the stomach and persistently dilated small bowel loops. So far today pt had 600cc NG output and 1L overnight, however he states he feels better than on admission with no pain, no nausea and is feeling hungry and thirsty. He reports having a colonoscopy 5 years ago and he was told he had signs of constipation PMH: HTN, HLD, CAD PSHx: CABG years ago Meds: includes ASA 81, no other antiplt or anticoagulation Allergies: NKDA Narrative: Pain controlled, no nausea, has not passed gas or had a bowel movement yet, had 600 cc output overnight from NG Exam Vital Signs Temp Pulse Resp BP Pulse Ox O2 Del Method O2 Flow Rate 97.1 F 94 16 140/73 H 95 Nasal Cannula 2 07/14/24 08:00 07/14/24 12:31 07/14/24 12:31 07/14/24 08:00 07/14/24 08:00 07/14/24 08:00 07/14/24 08:00 Constitutional Constitutional: no acute distress Routine Respiratory Exam Respiratory: Present no resp distress Routine Abdominal Exam Abdominal: Present soft; Absent tenderness or distended Results Results: Laboratory Laboratory results: results reviewed Assessment & Plan Plan 83M with HTN, HLD, CAD s/p CABG in past on ASA 81 presenting with signs and symptoms of SBO refractory to conservative management, s/p laparotomy with findings of extrinsic compression of the small bowel 07/13, gradually recovering NG to LIS Encourage OOB/ambulation Pain control as needed Procedures Procedures Exploratory laparotomy, examination of small bowel
--- NOTE | 2024-07-14 14:30 | PC.NURSE ---
pt. ambulated in the hallway, walking one length back and forth with assistance from the RN and the WET ROLLER. Pt. on O@ 2 L via Nasal canula during ambulation. No signs of distress noted during or after ambulation. Pt. tolerated activity well and was assisted back to bed safely.
--- NOTE | 2024-07-14 15:19 | ESPR_ITS ---
<Statement entered by Yuridia Castro MD - 07/14/24 15:37> I discussed with and supervised the bakery pastry internship physician who took care of this patient. I personally saw and examined the patient and discussed the assessment and plan with the entire medicine team, including my attending Dr. Lemons, I agree with the assessment and plan as documented below Patient seen and examined at bedside today. Labs and imaging reviewed. Yuridia Castro MD PGY-3 Disclaimer: Despite multiple revisions, due to the dictation software being used, the document bellow may not be free of grammatical errors including phonetic/typographic errors. However, this does not deter from our commitment to providing health care in the patient's best interest in mind. Documentation for date of: 07/14/24 Subjective Subjective Interval history: Patient seen today at the bedside fine awake, alert, oriented x 3. No overnight events reported. Patient states he wants to have a bowel movement tried using bedside commode however was unable to have a bowel movement. Patient was encouraged to ambulate. Vital signs stable at this time. Labs stable at this time. Patient pending bowel movement and passing gas. Patient currently on D5 and half NS however showing some signs of hyperglycemia on fingerstick glucose checks will switch IV fluids to LR at this time. Exam Vital Signs Temp Pulse Resp BP Pulse Ox O2 Del Method O2 Flow Rate 97.1 F 94 16 154/74 H 92 L Room Air 2 07/14/24 12:00 07/14/24 12:31 07/14/24 12:31 07/14/24 12:00 07/14/24 12:00 07/14/24 12:00 07/14/24 08:00 Narrative Exam Physical Exam GENERAL: NAD, AAOx3, NGT in place HEENT: Moist mucosa. Eyes open, symmetrical, & clear CARDIO: Heart RRR, no obvious murmurs PULM: No noted coughing/dyspnea CTA B/L, no R/W/R GI: Abdomen soft, distended, mild tenderness pain on palpation. hypoactive bowel sounds SKIN/MSK/EXT: No wounds/rashes/edema/amputations, no pain on palpation. Pedal pulses present B/L NEURO: AAOx3, no focal neuro deficits, able to move all 4 extremities Objective Labs 07/14/24 05:02 07/14/24 05:02 Labs: Laboratory Results - last 24 hr 07/13/24 07/14/24 15:21 05:02 WBC 10.4 RBC 4.48 L Hgb 13.5 Hct 40.7 L MCV 91 MCH 30.1 MCHC 33.2 RDW Std Deviation 45.8 H Plt Count 178 D Neut % (Auto) 84 H Lymph % (Auto) 8 L [place] % (Auto) 8 Eos % (Auto) 0 Baso % (Auto) 0 Neut # (Auto) 8.7 H Lymph # (Auto) 0.8 L [place] # (Auto) 0.8 Eos # (Auto) 0.0 Baso # (Auto) 0.0 Immature Gran # (Auto) 0.03 H Absolute Nucleated RBC 0.00 Immature Gran % 0 Nucleated RBC % 0 Sodium 150 H 147 H Potassium 3.1 L 4.1 D Chloride 101 99 Carbon Dioxide 39.2 H 36.7 H Anion Gap 10 11 BUN 78 H 80 H Creatinine 3.2 H 3.1 H Estim Creat Clear Calc 19.6 L 20.2 L eGFR 19 L 19 L BUN/Creatinine Ratio 24 H 26 H Glucose 153 H 221 H D Calculated Osmolality 324 H 323 H Calcium 8.6 8.8 Corrected Calcium 8.8 9.0 Phosphorus 4.0 5.3 H Magnesium 2.2 Total Bilirubin 1.2 AST 17 ALT 12 Alkaline Phosphatase 59 Total Protein 6.9 Albumin 3.8 3.8 Globulin 3.1 Albumin/Globulin Ratio 1.2 Quality Measures Quality Measures none Advance care planning discussed with:: patient Assessment & Plan Assessment Current Active Medications: Generic Name Dose Route Start Last Admin Trade Name Freq PRN Reason Stop Dose Admin Hydralazine HCl 10 mg 07/11/24 09:40 Hydralazine Inj 20 Mg/Ml Vial IV 08/10/24 09:44 Q6H PRN SBP >170 DPB >110 Dextrose/Sodium Chloride 1,000 mls @ 100 mls/hr 07/12/24 08:30 07/14/24 05:15 D5-1/2ns IV 08/11/24 08:29 100 mls/hr .Q10H WILIAN Administration Acetaminophen 1,000 mg in 100 mls @ 250 mls/hr 07/14/24 00:00 07/14/24 11:28 Ofirmev Inj IV 07/14/24 18:23 250 mls/hr Q6HR WILIAN Administration Metoclopramide HCl 5 mg 07/11/24 14:30 07/14/24 11:34 Metoclopramide Inj 5 Mg/Ml Vial 2 Ml IVP 08/10/24 14:29 5 mg Q6HR WILIAN Administration Protocol Morphine Sulfate 1 mg 07/10/24 17:03 07/13/24 22:28 Morphine Sulf Inj 10 Mg/Ml Vial IVP 07/15/24 17:02 1 mg Q4HR PRN Administration PAIN SCALE 7-10 (Severe Pantoprazole Sodium 40 mg 07/10/24 17:15 07/14/24 09:26 Pantoprazole Inj 40 Mg Vial IVP 08/09/24 17:14 40 mg QDAY WILIAN Administration Sevelamer Carbonate 800 mg 07/12/24 12:00 07/14/24 12:58 Sevelamer Carbonate 800 Mg Tablet PO 08/11/24 11:59 Not Given TIDWM WILIAN Plan 83-year-old man with past medical history of CAD s/p open heart surgery, hypertension, CKD who came to the ED with chief complaint of abdominal pain. Patient stated that approximately 3 days ago after eating some beans and tortillas hours later started having nausea and multiple episodes of vomiting associated to severe pain until last night that he describes the pain as diffuse and unbearable for which he decided to come to the ED. He stated he was passing gas until last night and that his last bowel movement was this morning and was very scant. Patient denies fever, chills, chest pain shortness of breath or any other associated symptom. He stated that he thinks today probably he vomited blood.Pertinent labs: WBCs within normal limits, hemoglobin 13.9, creatinine 2.7 BUN 59 EGFR 23, lactic acid 3.1, T. bili 1.5 Imaging: CT abdomen pelvis showed Small bowel obstruction pattern, 12 mm fat-containing umbilical hernia, very heavy calcification of right origin of renal artery with no critical stenosis. At the ED the patient received: IV fluids 2 L bolus LR, ondansetron IV, and Reglan IV, NG tube was placed and patient will be admitted for further treatment and management of SBO and GIORGI on CKD #Hypotonic hypernatremia-improving Most likely secondary to dehydration and GI losses due to NG tube in the setting of SBO Na+ 151, trending down ? IV fluids LR ? Follow-up CMP #S/p Exploratory laparatomy #Small bowel obstruction Patient present 3 days of nausea vomiting and severe abdominal pain Last bowel movement was this morning that he stated that was a scant, was passing gas until last night CT abdomen pelvis showed Small bowel obstruction pattern, 12 mm fat-containing umbilical hernia General Surgery was consulted we will appreciate recommendation - pending OR today with Dr. Murillo ? IV LR ? Protonix 40 mg IV daily ? IV morphine 1 mg every 4 hours as needed ? Low intermittent suction #Gastric outlet Small bowel series showed gastric outlet and small bowel obstruction Gastroenterology was consulted who recommended to start Reglan IV 5 mg every 6 hours ? DC ondansetron ? IV Reglan 5 mg every 6 hours #Rule out upper GI bleed Possibly secondary to erosive gastritis vs Domi-Chou vs PUD? Patient had multiple episodes of vomiting for the last 3 days that could be causing mucosal erosion Less likely GI bleed at this moment hemoglobin stable 13.9 ? Follow-up occult blood test ? Follow-up CBC #GIORGI on CKD stage IIIb Most likely prerenal in the setting of dehydration Patient is following up for CKD and nephrology as an outpatient CT abdomen pelvis shows heavy calcification of right origin of renal artery with no critical stenosis Creatinine baseline around 1.4 Creatinine uptrending to 3.78 Dr Galeano nephrology was consulted who recommended to start patient on IV Bumex 2 mg every 6 hours - IV fluids LR - Strict ins and outs - Avoid nephrotoxic drugs - Renally dose medications - Follow-up renal ultrasound, will order once SBO is resolved #Hyperphosphatemia Most likely secondary to GIORGI on CKD Nephrology Dr. Galeano was consulted we will appreciate recommendations ? Sevelamer 800 mg 3 times daily ? Follow-up CMP and phosphorus #History of CAD status post open heart surgery ? Patient is n.p.o. resume any home medications when reconciled and patient is able to eat #History of hypertension Patient is normotensive at this moment ? Hold home medications at the moment due to blood pressures on the soft side and patient is n.p.o. ? Hydralazine 10 IV every 6 hours as needed for SBP [id number] #Lactic acidosis resolved Possibly secondary to impaired lactate clearance in the setting of CKD vs bowel ischemia? CT abdomen pelvis shows small bowel obstruction pattern, 12 mm fat-containing umbilical hernia without incarceration Lactic acid trend down to normal limits #Hyperbilirubinemia resolved Most likely secondary to severe vomiting Liver enzymes within normal limits, alk phos normal less likely obstruction pattern T. bili down trended to normal limits ? Follow-up CMP Patient discussed with my senior Dr. aCstro PGY-[address] Vesta Price MD PGY-1 Disposition: MedSurg Fluids and Diet: LR DVT prophylaxis: SCD GI prophylaxis: Protonix Clemons: None CODE STATUS: Full code Disclaimer: Despite multiple revisions, due to the dictation software being used, the document bellow may not be free of grammatical errors including phonetic/typographic errors. However, this does not deter from our commitment to providing health care in the patient's best interest in mind. Attending Provider Attestation/Addendum I attest that I was physically present for the evaluation, physical examination, lab and imaging review of the patient with the residents. I discussed the case with the residents and agree with the findings and plans of care as documented above. At bedside today, patient states she is feeling better compared to yesterday. She tried to have a bowel movement at bedside commode but was unsuccessful. Has not passed any bowel or gas. Continues to have drainage from his NG tube. Patient is encouraged to ambulate. General surgery following, appreciate recommendations continues to be on D5 half NS for hypernatremia, improving slowly. Continues to be on IV Reglan for possible gastric outlet obstruction. His kidney function has been improving slowly. Patient has been unable to take sevelamer due to SBO. We will continue to monitor closely for bowel movement. Basilio Lemons MD
--- NOTE | 2024-07-14 15:58 | PC.SS ---
Rounding note: Post op, pending both surgery recommendations and ECHO.
[2024-07-14] MEDS: RINGERS LACTATED 1000 ML 1,000 ML 90 ML IV (16:08)
--- NOTE | 2024-07-14 17:34 | PC.NURSE ---
MD on bedside assessed and observed the martin site. Pt. is not actively bleeding and not complaining of discomfort or any pain. Per MD continue monitor not new order received.
--- NOTE | 2024-07-14 18:29 | PD.IMPROG ---
Documentation for date of: 07/14/24 Subjective Subjective Interval history: Extension compression on laparotomy leading to small bowel obstruction Additional released and the patient's function is slowly returning to normal still on NGT to LIS Exam Vital Signs Temp Pulse Resp BP Pulse Ox O2 Del Method O2 Flow Rate 97.8 F 90 18 147/95 H 94 L Nasal Cannula 2 07/14/24 16:00 07/14/24 16:00 07/14/24 16:00 07/14/24 16:00 07/14/24 16:00 07/14/24 16:00 07/14/24 16:00 Objective Labs 07/14/24 05:02 07/14/24 05:02 Labs: Laboratory Results - last 24 hr 07/14/24 05:02 WBC 10.4 RBC 4.48 L Hgb 13.5 Hct 40.7 L MCV 91 MCH 30.1 MCHC 33.2 RDW Std Deviation 45.8 H Plt Count 178 D Neut % (Auto) 84 H Lymph % (Auto) 8 L [place] % (Auto) 8 Eos % (Auto) 0 Baso % (Auto) 0 Neut # (Auto) 8.7 H Lymph # (Auto) 0.8 L [place] # (Auto) 0.8 Eos # (Auto) 0.0 Baso # (Auto) 0.0 Immature Gran # (Auto) 0.03 H Absolute Nucleated RBC 0.00 Immature Gran % 0 Nucleated RBC % 0 Sodium 147 H Potassium 4.1 D Chloride 99 Carbon Dioxide 36.7 H Anion Gap 11 BUN 80 H Creatinine 3.1 H Estim Creat Clear Calc 20.2 L eGFR 19 L BUN/Creatinine Ratio 26 H Glucose 221 H D Calculated Osmolality 323 H Calcium 8.8 Corrected Calcium 9.0 Phosphorus 5.3 H Magnesium 2.2 Total Bilirubin 1.2 AST 17 ALT 12 Alkaline Phosphatase 59 Total Protein 6.9 Albumin 3.8 Globulin 3.1 Albumin/Globulin Ratio 1.2 Impressions Impression: Small bowel obstruction status post exploratory laparotomy NGT to LIS Assessment & Plan A&P Narrative Small bowel obstruction/ileus Continue NGT suction Contrast is moving Some of it is all in the right colon hopefully this is an incomplete obstruction and it will resolve with intermittent Gomco suction Patient does have a some kind of a gastroparesis with bloody vomiting on presentation Once the SBO resolves we will consider upper endoscopy to make sure there is no partial stenosis of the pyloric channel Other medical problems include CKD 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
[2024-07-14] MEDS: ONDANSETRON INJ 2 MG/ML INJ 2 ML 4 MG IV (21:57)
[2024-07-15] VITALS (9 sets, daily range): BP systolic 126–152; BP diastolic 59–77; PULSE 67–91; RESP 16–18; TEMP 36.1–36.3; O2SAT 91–98; BMI 30.7
[2024-07-15] MEDS: RINGERS LACTATED 1000 ML 1,000 ML 90 ML IV ×2 (03:13→14:45)
[2024-07-15] MEDS: METOCLOPRAMIDE INJ 5 MG/ML VIAL 2 ML IVP ×4 (05:05→17:56)
[2024-07-15 06:06] LABS: Basophils % (Auto) 0 % (0-2.5); Eosinophils # (Auto) 0.2 Thou/mm3 (0.0-0.5); Eosinophils % (Auto) 2 % (0-10); Hematocrit 39.1 % (41.0-53.0); Hemoglobin 12.6 g/dL (13.5-16.0); Immature Granulocytes % (Auto) 1 % (0-0); Immature Granulocytes Auto 0.09 Thou/mm3 (0.00-0.00); Lymphocytes # (Auto) 1.5 Thou/mm3 (1.0-4.8); Lymphocytes % (Auto) 13 % (10-50); Mean Corpuscular HGB Conc 32.2 g/dl (31.0-37.0); Mean Corpuscular Volume 93 fL (80-100); Monocytes # (Auto) 1.2 Thou/mm3 (0.0-0.8); Monocytes % (Auto) 11 % (0-12); Neutrophils # (Auto) 8.6 Thou/mm3 (1.8-7.7); Neutrophils % (Auto) 74 % (37-80); Nucleated Red Blood Cell % 0 /100 WBC (0); Platelet Count 167 Thou/mm3 (140-440); White Blood Count 11.6 Thou/mm3 (3.8-10.6)
[2024-07-15 06:46] LABS: Alanine Aminotransferase 12 U/L (10-49); Albumin, Serum 3.5 gm/dL (3.4-4.8); Albumin/Globulin Ratio 1.2 (1.2-2.2); Alkaline Phosphatase 62 U/L (46-116); Anion Gap 10 (7-16); Aspartate Amino Transferase 17 U/L (0-34); BUN/Creatinine Ratio 29 Ratio (12-20); Blood Urea Nitrogen 86 mg/dL (9-23); Calcium 8.9 mg/dL (8.3-10.6); Calcium (Corrected) 9.3 mg/dL (8.5-10.1); Carbon Dioxide 37.7 mMol/L (20.0-31.0); Chloride 98 mMol/L (98-107); Estimated Creatinine Clearance 20.9 mL/min (>60); Glucose 122 mg/dL (74-106); Magnesium 2.4 mg/dL (1.6-2.6); Osmolality,Calculated 317 (275-295); Phosphorous 4.7 mg/dL (2.4-5.1); Potassium 3.6 mMol/L (3.4-5.1); Sodium 146 mMol/L (136-145); Total Protein 6.5 gm/dL (5.7-8.2); eGFR 20 See Note
[2024-07-15] MEDS: PANTOPRAZOLE INJ 40 MG VIAL IVP (08:31)
--- NOTE | 2024-07-15 10:20 | ESPR_ITS ---
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 Pt reports symptoms began a few days ago with abdominal pain that was slowly building, and he had episodes of nausea/vomiting prompting him to seek care in ER. Pt initially states he has never had similar symptoms but then does recount that 5 years ago he had an NG. He states his last BM was two days ago and was normal, and he has been passing gas as recently as today. In ER here workup was consistent with SBO, pt underwent small bowel series which did show minimal cont rast in the colon but pt was noted to have delayed passage from the stomach and persistently dilated small bowel loops. So far today pt had 600cc NG output and 1L overnight, however he states he feels better than on admission with no pain, no nausea and is feeling hungry and thirsty. He reports having a colonoscopy 5 years ago and he was told he had signs of constipation PMH: HTN, HLD, CAD PSHx: CABG years ago Meds: includes ASA 81, no other antiplt or anticoagulation Allergies: NKDA Narrative: Pain controlled, no nausea, passing gas and feeling thirsty and hungry. 200cc output from NG overnight Exam Vital Signs Temp Pulse Resp BP Pulse Ox O2 Del Method O2 Flow Rate 97.1 F 76 18 150/59 H 94 L Room Air 2 07/15/24 08:00 07/15/24 08:00 07/15/24 08:00 07/15/24 08:00 07/15/24 08:00 07/15/24 08:00 07/14/24 16:00 Constitutional Constitutional: no acute distress Routine Respiratory Exam Respiratory: Present no resp distress Routine Abdominal Exam Abdominal: Present soft; Absent tenderness or distended Results Results: Laboratory Laboratory results: results reviewed Assessment & Plan Plan 83M with HTN, HLD, CAD s/p CABG in past on ASA 81 presenting with signs and symptoms of SBO refractory to conservative management, s/p laparotomy with findings of extrinsic compression of the small bowel 07/13, gradually recovering. Because pt has had a decrease in NG output and is passing gas, I offered to remove NG and start CLD vs clamp trial for 4 hours. I explained that if pt were to have nausea/vomiting after starting diet he may need reinsertion; he expressed understanding and prefers to initiate diet DC NG, start CLD Encourage OOB/ambulation Procedures Procedures Exploratory laparotomy, examination of small bowel
--- NOTE | 2024-07-15 12:31 | ESPR_ITS ---
<Statement entered by Lawanda Pitts MD - 07/16/24 05:54> een and examined at bedside. Overnight, patient had a total NG output of around 200 cc of coffee-ground emesis. Patient continued to have nausea/vomiting at bedside. Surgery recommended to remove NG tube which helped with the nausea vomiting and since then has complaints. Patient is passing gas and pending bowel movement. Patient can advance to clear liquid diet and advance as tolerated. I discussed with and supervised the improvement intern physician who took care of this patient. I personally saw and examined the patient and discussed the assessment and plan with the entire medicine team, including my attending , I agree with most of the assessment and plan as documented below Lawanda Pitts M.D. PGY-2 Disclaimer: Despite multiple revisions, due to the dictation software being used, the document bellow may not be free of grammatical errors including phonetic/typographic errors. However, this does not deter from our commitment to providing health care in the patient's best interest in mind. <Statement entered by Yuridia Castro MD - 07/15/24 18:51> I discussed with and supervised the improvement intern physician who took care of this patient. I personally saw and examined the patient and discussed the assessment and plan with the entire medicine team, including my attending Dr. Ruiz, I agree with the assessment and plan as documented below Patient seen and examined at bedside today. Labs and imaging reviewed. This morning at the bedside, patient still that he is feels better he stated he is passing gas denied having pain at this moment, per general surgery recommendations NG tube can be removed and patient can starting clear liquid diet and advance as tolerated. Yuridia Castro MD PGY-3 Disclaimer: Despite multiple revisions, due to the dictation software being used, the document bellow may not be free of grammatical errors including phonetic/typographic errors. However, this does not deter from our commitment to providing health care in the patient's best interest in mind. Documentation for date of: 07/15/24 Subjective Subjective Interval history: Patient seen today at the bedside fine awake, alert, oriented x 3. No overnight events reported. Reports passing gas and having urge to have bowel movement and abdominal pain is now gone. Vital signs stable at this time. Labs significant for improving hyponatremia. NG tube output noted about 200 cc of coffee-ground spoke to general surgery evaluated the patient and recommended discontinuing the NG tube at this time and starting the patient on clear liquid diet, given the patient's improvement in symptoms, will advance as tolerated. Exam Vital Signs Temp Pulse Resp BP Pulse Ox O2 Del Method O2 Flow Rate 97.1 F 79 18 150/59 H 94 L Room Air 2 07/15/24 08:00 07/15/24 10:31 07/15/24 10:31 07/15/24 08:00 07/15/24 10:31 07/15/24 08:00 07/15/24 10:31 Narrative Exam Physical Exam GENERAL: NAD, AAOx3, HEENT: Moist mucosa. Eyes open, symmetrical, & clear CARDIO: Heart RRR, no obvious murmurs PULM: No noted coughing/dyspnea CTA B/L, no R/W/R GI: Abdomen soft, distended, mild tenderness pain on palpation. BS appreciated SKIN/MSK/EXT: No wounds/rashes/edema/amputations, no pain on palpation. Pedal pulses present B/L NEURO: AAOx3, no focal neuro deficits, able to move all 4 extremities Objective Labs 07/16/24 04:32 07/16/24 04:32 Labs: Laboratory Results - last 24 hr 07/15/24 04:56 WBC 11.6 H RBC 4.20 L Hgb 12.6 L Hct 39.1 L MCV 93 MCH 30.0 MCHC 32.2 RDW Std Deviation 47.0 H Plt Count 167 Neut % (Auto) 74 Lymph % (Auto) 13 Major % (Auto) 11 Eos % (Auto) 2 Baso % (Auto) 0 Neut # (Auto) 8.6 H Lymph # (Auto) 1.5 Major # (Auto) 1.2 H Eos # (Auto) 0.2 Baso # (Auto) 0.0 Immature Gran # (Auto) 0.09 H Absolute Nucleated RBC 0.00 Immature Gran % 1 H Nucleated RBC % 0 Sodium 146 H Potassium 3.6 D Chloride 98 Carbon Dioxide 37.7 H Anion Gap 10 BUN 86 H Creatinine 3.0 H Estim Creat Clear Calc 20.9 L eGFR 20 L BUN/Creatinine Ratio 29 H Glucose 122 H D Calculated Osmolality 317 H Calcium 8.9 Corrected Calcium 9.3 Phosphorus 4.7 Magnesium 2.4 Total Bilirubin 1.0 AST 17 ALT 12 Alkaline Phosphatase 62 Total Protein 6.5 Albumin 3.5 Globulin 3.0 Albumin/Globulin Ratio 1.2 Quality Measures Quality Measures none Advance care planning discussed with:: patient Assessment & Plan Assessment Current Active Medications: Generic Name Dose Route Start Last Admin Trade Name Freq PRN Reason Stop Dose Admin Aspirin 81 mg 07/16/24 09:00 Aspirin 81 Mg Chew PO 08/15/24 08:59 QDAY WILIAN Atorvastatin Calcium 20 mg 07/16/24 09:00 Atorvastatin Calcium 20 Mg Tablet PO 08/15/24 08:59 QDAY WILIAN Carvedilol 12.5 mg 07/15/24 21:00 Carvedilol 12.5 Mg Tablet PO 08/14/24 20:59 BID WILIAN Hydralazine HCl 10 mg 07/11/24 09:40 Hydralazine Inj 20 Mg/Ml Vial IV 08/10/24 09:44 Q6H PRN SBP >170 DPB >110 Lactated Ringer's 1,000 mls @ 90 mls/hr 07/14/24 15:30 07/15/24 03:13 Lactated Ringers IV 08/13/24 15:29 90 mls/hr .[id number] WILIAN Administration Metoclopramide HCl 5 mg 07/11/24 14:30 07/15/24 05:05 Metoclopramide Inj 5 Mg/Ml Vial 2 Ml IVP 08/10/24 14:29 5 mg Q6HR WILIAN Administration Protocol Morphine Sulfate 1 mg 07/10/24 17:03 07/13/24 22:28 Morphine Sulf Inj 10 Mg/Ml Vial IVP 07/15/24 17:02 1 mg Q4HR PRN Administration PAIN SCALE 7-10 (Severe Non-Formulary Medication 81 mg 07/16/24 09:00 Aspirin PO 08/15/24 08:59 QDAY WILIAN Pantoprazole Sodium 40 mg 07/10/24 17:15 07/15/24 08:31 Pantoprazole Inj 40 Mg Vial IVP 08/09/24 17:14 40 mg QDAY WILIAN Administration Sevelamer Carbonate 800 mg 07/12/24 12:00 07/14/24 17:19 Sevelamer Carbonate 800 Mg Tablet PO 08/11/24 11:59 Not Given TIDWM WILIAN Terazosin HCl 5 mg 07/15/24 21:00 Terazosin Hcl 5 Mg Capsule PO 08/14/24 20:59 BID WILIAN Plan 83-year-old man with past medical history of CAD s/p open heart surgery, hypertension, CKD who came to the ED with chief complaint of abdominal pain. Patient stated that approximately 3 days ago after eating some beans and tortillas hours later started having nausea and multiple episodes of vomiting associated to severe pain until last night that he describes the pain as diffuse and unbearable for which he decided to come to the ED. He stated he was passing gas until last night and that his last bowel movement was this morning and was very scant. Patient denies fever, chills, chest pain shortness of breath or any other associated symptom. He stated that he thinks today probably he vomited blood.Pertinent labs: WBCs within normal limits, hemoglobin 13.9, creatinine 2.7 BUN 59 EGFR 23, lactic acid 3.1, T. bili 1.5 Imaging: CT abdomen pelvis showed Small bowel obstruction pattern, 12 mm fat-containing umbilical hernia, very heavy calcification of right origin of renal artery with no critical stenosis. At the ED the patient received: IV fluids 2 L bolus LR, ondansetron IV, and Reglan IV, NG tube was placed and patient will be admitted for further treatment and management of SBO and GIORGI on CKD. #Hypotonic hypernatremia-improving Most likely secondary to dehydration and GI losses due to NG tube in the setting of SBO Na+ 146, trending down ? IV fluids LR ? Follow-up CMP #S/p Exploratory laparatomy #Small bowel obstruction Patient present 3 days of nausea vomiting and severe abdominal pain Last bowel movement was this morning that he stated that was a scant, was passing gas until last night CT abdomen pelvis showed Small bowel obstruction pattern, 12 mm fat-containing umbilical hernia General Surgery was consulted we will appreciate recommendation - pending OR today with Dr. Murillo ? IV LR ? Protonix 40 mg IV daily ? IV morphine 1 mg every 4 hours as needed ? Low intermittent suction #Gastric outlet Small bowel series showed gastric outlet and small bowel obstruction Gastroenterology was consulted who recommended to start Reglan IV 5 mg every 6 hours ? DC ondansetron ? IV Reglan 5 mg every 6 hours #Upper GI bleed-Ruled out Possibly secondary to erosive gastritis vs Domi-Chou vs PUD? Patient had multiple episodes of vomiting for the last 3 days that could be causing mucosal erosion Less likely GI bleed at this moment hemoglobin stable 13.9 ? Follow-up occult blood test ? Follow-up CBC #GIORGI on CKD stage IIIb Most likely prerenal in the setting of dehydration Patient is following up for CKD and nephrology as an outpatient CT abdomen pelvis shows heavy calcification of right origin of renal artery with no critical stenosis Creatinine baseline around 1.4 Creatinine uptrending to 3.78 Dr Galeano nephrology was consulted who recommended to start patient on IV Bumex 2 mg every 6 hours - Strict ins and outs - IVFs - Avoid nephrotoxic drugs - Renally dose medications - Follow-up renal ultrasound, will order once SBO is resolved #Hyperphosphatemia-resolved Most likely secondary to GIORGI on CKD Nephrology Dr. Galeano was consulted we will appreciate recommendations ? Sevelamer 800 mg 3 times daily ? Follow-up CMP and phosphorus #History of CAD status post open heart surgery ? Aspirin 81mg qday resumed #History of Hypertension #Hx of Hyperlipidemia Patient is normotensive at this moment ? Carvedilol 12.5mg BID as taken at home - Atorvastatin 40mg HS ? Hydralazine 10 IV every 6 hours as needed for SBP [id number] #Hx of BPH - resumed terazosin as taken at home #Lactic acidosis-resolved Possibly secondary to impaired lactate clearance in the setting of CKD vs bowel ischemia? CT abdomen pelvis shows small bowel obstruction pattern, 12 mm fat-containing umbilical hernia without incarceration Lactic acid trend down to normal limits #Hyperbilirubinemia-resolved Most likely secondary to severe vomiting Liver enzymes within normal limits, alk phos normal less likely obstruction pattern T. bili down trended to normal limits ? Follow-up CMP Patient discussed with my seniors Dr. Pitts PGY-2, Dr. Castro PGY-[address] Joseph Price MD PGY-1 Disposition: Medsurg Fluids: LR Feeding: Clear liquid Thrombo prophylaxis: SCDs Gastric Ulcer prophylaxis: Pantoprazole CODE STATUS: Full code Disclaimer: Despite multiple revisions, due to the dictation software being used, the document bellow may not be free of grammatical errors including phonetic/typographic errors. However, this does not deter from our commitment to providing health care in the patient's best interest in mind. Attending Provider Attestation/Addendum I have examined the patient, reviewed labs and imaging findings, discussed the case with the resident(s), and reviewed entered orders. I agree with the plan of care as outlined in this note, with these additional summaries/recommendations: Patient seen at bedside. No acute overnight events. Patient reports he is now passing gas. Patient was seen by general surgery and NG tube removed. We will start clear liquid diet and monitor how patient tolerates. Encourage patient to ambulate as tolerated. Hypernatremia secondary to dehydration improving. Will continue IV fluids for now and discontinue once diet is more improved. Patient was also found to have GIORGI on CKD on admission. Creatinine peaked at 4.0 and now down to 3.0. We will continue to avoid nephrotoxic agents and renally dose medications. Home phosphate binder resumed and patient's radiation oncology manager consulted. Patient updated on the plan and in agreement. Repeat hematology and chemistry panel in AM. Dr. Joseph MD
[2024-07-15] MEDS: SEVELAMER CARBONATE 800 MG TABLET PO ×2 (12:46→17:52)
--- NOTE | 2024-07-15 16:16 | PC.SS ---
Rounding note: pending BM and toleration of diet.
[2024-07-15] MEDS: TERAZOSIN HCL 5 MG CAPSULE PO (20:28)
[2024-07-15] MEDS: MORPHINE SULF INJ 10 MG/ML VIAL IVP (20:28)
[2024-07-15] MEDS: carVEDILOL 12.5 MG TABLET PO (20:28)
--- NOTE | 2024-07-15 21:08 | ESPR_ITS ---
Documentation for date of: 07/15/24 Subjective Subjective Interval history: Patient evaluated Passing flatus NGT out on CLD Exam Vital Signs Temp Pulse Resp BP Pulse Ox O2 Del Method O2 Flow Rate 97.0 F 82 16 126/65 94 L Room Air 2 07/15/24 16:00 07/15/24 20:28 07/15/24 18:50 07/15/24 20:28 07/15/24 18:50 07/15/24 08:00 07/15/24 18:50 Objective Labs 07/15/24 04:56 07/15/24 04:56 Labs: Laboratory Results - last 24 hr 07/15/24 04:56 WBC 11.6 H RBC 4.20 L Hgb 12.6 L Hct 39.1 L MCV 93 MCH 30.0 MCHC 32.2 RDW Std Deviation 47.0 H Plt Count 167 Neut % (Auto) 74 Lymph % (Auto) 13 [place] % (Auto) 11 Eos % (Auto) 2 Baso % (Auto) 0 Neut # (Auto) 8.6 H Lymph # (Auto) 1.5 [place] # (Auto) 1.2 H Eos # (Auto) 0.2 Baso # (Auto) 0.0 Immature Gran # (Auto) 0.09 H Absolute Nucleated RBC 0.00 Immature Gran % 1 H Nucleated RBC % 0 Sodium 146 H Potassium 3.6 D Chloride 98 Carbon Dioxide 37.7 H Anion Gap 10 BUN 86 H Creatinine 3.0 H Estim Creat Clear Calc 20.9 L eGFR 20 L BUN/Creatinine Ratio 29 H Glucose 122 H D Calculated Osmolality 317 H Calcium 8.9 Corrected Calcium 9.3 Phosphorus 4.7 Magnesium 2.4 Total Bilirubin 1.0 AST 17 ALT 12 Alkaline Phosphatase 62 Total Protein 6.5 Albumin 3.5 Globulin 3.0 Albumin/Globulin Ratio 1.2 Impressions Impression: Small bowel obstruction improving Decompression by lysis of the adhesions Advance diet Assessment & Plan A&P Narrative Small bowel obstruction/ileus Continue NGT suction Contrast is moving Some of it is all in the right colon hopefully this is an incomplete obstruction and it will resolve with intermittent Gomco suction Patient does have a some kind of a gastroparesis with bloody vomiting on presentation Once the SBO resolves we will consider upper endoscopy to make sure there is no partial stenosis of the pyloric channel Other medical problems include CKD followed by Dr. Galeano and director strategic planning Coronary artery status post CABG Essential hypertension Hyperlipidemia Thank you very much for the opportunity to participate in care of this patient Time Spent With Patient Time: Total time spent is greater than 50% in coordination of care (as documented) at patient's floor/unit and/or counseling patient:
[2024-07-16] VITALS (8 sets, daily range): BP systolic 105–139; BP diastolic 53–71; PULSE 60–83; RESP 17–20; TEMP 36.1–36.3; O2SAT 94–97
[2024-07-16] MEDS: METOCLOPRAMIDE INJ 5 MG/ML VIAL 2 ML IVP ×2 (00:10→05:19)
[2024-07-16] MEDS: RINGERS LACTATED 1000 ML 1,000 ML 90 ML IV ×2 (02:46→14:17)
--- NOTE | 2024-07-16 04:00 | PC.NURSE ---
Pt complaining of abdominal pain specially if he moves or cough, MD Mclaughlin came and kanwal dn examined the pt, new order made to put pt on NPO and will give pain medicine. Pt abdomen is distended. Pt instructed to ambulate, nephew at bedside.
[2024-07-16] MEDS: MORPHINE SULF INJ 10 MG/ML VIAL IVP (05:18)
[2024-07-16] MEDS: SIMETHICONE 80 MG CHEW PO (05:18)
[2024-07-16 05:59] LABS: Basophils % (Auto) 0 % (0-2.5); Eosinophils # (Auto) 0.3 Thou/mm3 (0.0-0.5); Eosinophils % (Auto) 3 % (0-10); Hematocrit 36.2 % (41.0-53.0); Hemoglobin 11.5 g/dL (13.5-16.0); Immature Granulocytes % (Auto) 0 % (0-0); Immature Granulocytes Auto 0.04 Thou/mm3 (0.00-0.00); Lymphocytes # (Auto) 0.9 Thou/mm3 (1.0-4.8); Lymphocytes % (Auto) 10 % (10-50); Mean Corpuscular HGB Conc 31.8 g/dl (31.0-37.0); Mean Corpuscular Hemoglobin 29.3 pg (25.0-35.0); Mean Corpuscular Volume 92 fL (80-100); Monocytes # (Auto) 0.9 Thou/mm3 (0.0-0.8); Monocytes % (Auto) 9 % (0-12); Neutrophils # (Auto) 7.3 Thou/mm3 (1.8-7.7); Neutrophils % (Auto) 77 % (37-80); Nucleated Red Blood Cell % 0 /100 WBC (0); Platelet Count 153 Thou/mm3 (140-440); RDW Standard Deviation 45.9 fL (35.1-43.9); Red Blood Count 3.93 Miln/mm3 (4.50-5.90); White Blood Count 9.4 Thou/mm3 (3.8-10.6)
[2024-07-16 07:09] LABS: Alanine Aminotransferase 11 U/L (10-49); Albumin, Serum 3.3 gm/dL (3.4-4.8); Albumin/Globulin Ratio 1.2 (1.2-2.2); Alkaline Phosphatase 60 U/L (46-116); Anion Gap 10 (7-16); Aspartate Amino Transferase 16 U/L (0-34); BUN/Creatinine Ratio 30 Ratio (12-20); Bilirubin,Total 0.9 mg/dL (0.3-1.2); Blood Urea Nitrogen 85 mg/dL (9-23); Calcium 8.9 mg/dL (8.3-10.6); Calcium (Corrected) 9.5 mg/dL (8.5-10.1); Carbon Dioxide 37.5 mMol/L (20.0-31.0); Chloride 96 mMol/L (98-107); Creatinine (Component) 2.8 mg/dL (0.6-1.3); Estimated Creatinine Clearance 22.4 mL/min (>60); Globulin 2.8 gm/dL (2.3-3.5); Glucose 176 mg/dL (74-106); Magnesium 2.5 mg/dL (1.6-2.6); Osmolality,Calculated 314 (275-295); Phosphorous 4.2 mg/dL (2.4-5.1); Potassium 3.2 mMol/L (3.4-5.1); Sodium 143 mMol/L (136-145); Total Protein 6.1 gm/dL (5.7-8.2); eGFR 22 See Note
[2024-07-16] MEDS: PANTOPRAZOLE INJ 40 MG VIAL IVP (09:06)
[2024-07-16] MEDS: POTASSIUM CHL 10 mEq IVPB 10 MEQ/100 ML BAG 100 MEQ IV ×4 (09:06→12:59)
--- NOTE | 2024-07-16 10:11 | XR_ITS ---
Examination: AP chest single view Technique one AP portable upright chest single view Exam date and time: July 16, 2024 0924 hours Comparison July 10, 2024 INDICATIONS: Post orogastric tube placement FINDINGS: Orogastric tube tip in the body of the stomach Prominent elevation left hemidiaphragm with atelectasis left base Normal heart size CABG IMPRESSION: Orogastric tube tip in the body of the stomach satisfactory position
--- NOTE | 2024-07-16 10:53 | PD.SURPROG ---
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 Pt reports symptoms began a few days ago with abdominal pain that was slowly building, and he had episodes of nausea/vomiting prompting him to seek care in ER. Pt initially states he has never had similar symptoms but then does recount that 5 years ago he had an NG. He states his last BM was two days ago and was normal, and he has been passing gas as recently as today. In ER here workup was consistent with SBO, pt underwent small bowel series which did show minimal contrast in the colon but pt was noted to have delayed passage from the stomach and persistently dilated small bowel loops. So far today pt had 600cc NG output and 1L overnight, however he states he feels better than on admission with no pain, no nausea and is feeling hungry and thirsty. He reports having a colonoscopy 5 years ago and he was told he had signs of constipation PMH: HTN, HLD, CAD PSHx: CABG years ago Meds: includes ASA 81, no other antiplt or anticoagulation Allergies: NKDA Narrative: Yesterday tolerated clears but this am began having nausea with vomiting, NG replaced. Pt was having pain overnight but states it was improved this am Exam Vital Signs Temp Pulse Resp BP Pulse Ox O2 Del Method O2 Flow Rate 97.0 F 68 17 105/53 L 97 Room Air 2 07/16/24 04:00 07/16/24 04:00 07/16/24 04:00 07/16/24 04:00 07/16/24 04:00 07/15/24 08:00 07/15/24 18:50 Constitutional Constitutional: mild distress Routine Respiratory Exam Respiratory: Present no resp distress Routine Abdominal Exam Abdominal: Present soft, tenderness (moderate tenderness) and distended (moderate distention) Results Results: Laboratory Laboratory results: results reviewed Assessment & Plan Plan 83M with HTN, HLD, CAD s/p CABG in past on ASA 81 presenting with signs and symptoms of SBO refractory to conservative management, s/p laparotomy with findings of extrinsic compression of the small bowel 07/13, with nausea/vomiting this morning requiring reinsertion of NG NG to LIS IVF Encourage OOB/ambulation Procedures Procedures Exploratory laparotomy, examination of small bowel
--- NOTE | 2024-07-16 12:23 | ESPR_ITS ---
Documentation for date of: 07/16/24 Subjective Subjective Interval history: Patient seen today at the bedside fine awake, alert, oriented x 3. Overnight patient developed abdominal pain and distention was given morphine X2 placed n.p.o. and had NG tube placed again intermittent suction when I went to evaluate the patient patient had about 180 cc from NG tube. Labs significant for improving and kidney function. Exam Vital Signs Temp Pulse Resp BP Pulse Ox O2 Del Method O2 Flow Rate 97.0 F 68 17 105/53 L 97 Room Air 2 07/16/24 04:00 07/16/24 04:00 07/16/24 04:00 07/16/24 04:00 07/16/24 04:00 07/15/24 08:00 07/15/24 18:50 Narrative Exam Physical Exam GENERAL: NAD, AAOx3, NGT in place HEENT: Moist mucosa. Eyes open, symmetrical, & clear CARDIO: Heart RRR, no obvious murmurs PULM: No noted coughing/dyspnea CTA B/L, no R/W/R GI: Abdomen soft, distended, mild tenderness pain on palpation. BS appreciated SKIN/MSK/EXT: No wounds/rashes/edema/amputations, no pain on palpation. Pedal pulses present B/L NEURO: AAOx3, no focal neuro deficits, able to move all 4 extremities Objective Labs 07/16/24 04:32 07/16/24 04:32 Labs: Laboratory Results - last 24 hr 07/16/24 04:32 WBC 9.4 RBC 3.93 L Hgb 11.5 L Hct 36.2 L MCV 92 MCH 29.3 MCHC 31.8 RDW Std Deviation 45.9 H Plt Count 153 Neut % (Auto) 77 Lymph % (Auto) 10 [place] % (Auto) 9 Eos % (Auto) 3 Baso % (Auto) 0 Neut # (Auto) 7.3 Lymph # (Auto) 0.9 L Price # (Auto) 0.9 H Eos # (Auto) 0.3 Baso # (Auto) 0.0 Immature Gran # (Auto) 0.04 H Absolute Nucleated RBC 0.00 Immature Gran % 0 Nucleated RBC % 0 Sodium 143 Potassium 3.2 L Chloride 96 L Carbon Dioxide 37.5 H Anion Gap 10 BUN 85 H Creatinine 2.8 H Estim Creat Clear Calc 22.4 L eGFR 22 L BUN/Creatinine Ratio 30 H Glucose 176 H D Calculated Osmolality 314 H Calcium 8.9 Corrected Calcium 9.5 Phosphorus 4.2 Magnesium 2.5 Total Bilirubin 0.9 AST 16 ALT 11 Alkaline Phosphatase 60 Total Protein 6.1 Albumin 3.3 L Globulin 2.8 Albumin/Globulin Ratio 1.2 Quality Measures Quality Measures none Advance care planning discussed with:: patient Assessment & Plan Assessment Current Active Medications: Generic Name Dose Route Start Last Admin Trade Name Freq PRN Reason Stop Dose Admin Atorvastatin Calcium 20 mg 07/16/24 09:00 07/16/24 09:01 Atorvastatin Calcium 20 Mg Tablet PO 08/15/24 08:59 Not Given QDAY WILIAN Carvedilol 12.5 mg 07/15/24 21:00 07/16/24 09:01 Carvedilol 12.5 Mg Tablet PO 08/14/24 20:59 Not Given BID WILIAN Hydralazine HCl 10 mg 07/11/24 09:40 Hydralazine Inj 20 Mg/Ml Vial IV 08/10/24 09:44 Q6H PRN SBP >170 DPB >110 Lactated Ringer's 1,000 mls @ 90 mls/hr 07/14/24 15:30 07/16/24 02:46 Lactated Ringers IV 08/13/24 15:29 90 mls/hr .Q11H7M WILIAN Administration Potassium Chloride 10 meq in 100 mls @ 100 mls/hr 07/16/24 08:45 07/16/24 11:48 Kcl Ivpb IV 07/16/24 12:44 100 mls/hr Q1H WILIAN Administration Metoclopramide HCl 5 mg 07/11/24 14:30 07/16/24 05:19 Metoclopramide Inj 5 Mg/Ml Vial 2 Ml IVP 08/10/24 14:29 5 mg Q6HR WILIAN Administration Protocol Non-Formulary Medication 81 mg 07/16/24 09:00 07/16/24 09:01 Aspirin PO 08/15/24 08:59 Not Given QDAY WILIAN Pantoprazole Sodium 40 mg 07/10/24 17:15 07/16/24 09:06 Pantoprazole Inj 40 Mg Vial IVP 08/09/24 17:14 40 mg QDAY WILIAN Administration Sevelamer Carbonate 800 mg 07/12/24 12:00 07/16/24 12:13 Sevelamer Carbonate 800 Mg Tablet PO 08/11/24 11:59 Not Given TIDWM [facility] Terazosin HCl 5 mg 07/15/24 21:00 07/16/24 09:01 Terazosin Hcl 5 Mg Capsule PO 08/14/24 20:59 Not Given BID [facility] Plan 83-year-old man with past medical history of CAD s/p open heart surgery, hypertension, CKD who came to the ED with chief complaint of abdominal pain. Patient stated that approximately 3 days ago after eating some beans and tortillas hours later started having nausea and multiple episodes of vomiting associated to severe pain until last night that he describes the pain as diffuse and unbearable for which he decided to come to the ED. He stated he was passing gas until last night and that his last bowel movement was this morning and was very scant. Patient denies fever, chills, chest pain shortness of breath or any other associated symptom. He stated that he thinks today probably he vomited blood.Pertinent labs: WBCs within normal limits, hemoglobin 13.9, creatinine 2.7 BUN 59 EGFR 23, lactic acid 3.1, T. bili 1.5 Imaging: CT abdomen pelvis showed Small bowel obstruction pattern, 12 mm fat-containing umbilical hernia, very heavy calcification of right origin of renal artery with no critical stenosis. At the ED the patient received: IV fluids 2 L bolus LR, ondansetron IV, and Reglan IV, NG tube was placed and patient will be admitted for further treatment and management of SBO and GIORGI on CKD. #Hypotonic hypernatremia-improving Most likely secondary to dehydration and GI losses due to NG tube in the setting of SBO Na+ 146, trending down ? IV fluids LR ? Follow-up CMP #S/p Exploratory laparatomy #Small bowel obstruction Patient present 3 days of nausea vomiting and severe abdominal pain Last bowel movement was this morning that he stated that was a scant, was passing gas until last night CT abdomen pelvis showed Small bowel obstruction pattern, 12 mm fat-containing umbilical hernia General Surgery was consulted we will appreciate recommendation - NGT on LIS ? IV LR ? Protonix 40 mg IV daily ? IV morphine 1 mg every 4 hours as needed ? Low intermittent suction #Gastric outlet Small bowel series showed gastric outlet and small bowel obstruction Gastroenterology was consulted who recommended to start Reglan IV 5 mg every 6 hours ? DC ondansetron ? IV Reglan 5 mg every 6 hours #Upper GI bleed-Ruled out Possibly secondary to erosive gastritis vs Domi-Chou vs PUD? Patient had multiple episodes of vomiting for the last 3 days that could be causing mucosal erosion Less likely GI bleed at this moment hemoglobin stable 13.9 ? Follow-up occult blood test ? Follow-up CBC #GIORGI on CKD stage IIIb Most likely prerenal in the setting of dehydration Patient is following up for CKD and nephrology as an outpatient CT abdomen pelvis shows heavy calcification of right origin of renal artery with no critical stenosis Creatinine baseline around 1.4 Creatinine uptrending to 3.78 Dr Galeano nephrology was consulted who recommended to start patient on IV Bumex 2 mg every 6 hours - Strict ins and outs - IVFs - Avoid nephrotoxic drugs - Renally dose medications - Follow-up renal ultrasound, will order once SBO is resolved #Hyperphosphatemia-resolved Most likely secondary to GIORGI on CKD Nephrology Dr. Galeano was consulted we will appreciate recommendations ? Sevelamer 800 mg 3 times daily ? Follow-up CMP and phosphorus #History of CAD status post open heart surgery ? Aspirin 81mg qday resumed #History of Hypertension #Hx of Hyperlipidemia Patient is normotensive at this moment ? Carvedilol 12.5mg BID as taken at home - Atorvastatin 40mg HS ? Hydralazine 10 IV every 6 hours as needed for SBP [id number] #Hx of BPH - resumed terazosin as taken at home #Lactic acidosis-resolved Possibly secondary to impaired lactate clearance in the setting of CKD vs bowel ischemia? CT abdomen pelvis shows small bowel obstruction pattern, 12 mm fat-containing umbilical hernia without incarceration Lactic acid trend down to normal limits #Hyperbilirubinemia-resolved Most likely secondary to severe vomiting Liver enzymes within normal limits, alk phos normal less likely obstruction pattern T. bili down trended to normal limits ? Follow-up CMP Patient discussed with my seniors Dr. Pitts PGY-[address] Joseph Price MD PGY-1 Disposition: Medsurg Fluids: LR Feeding: Clear liquid Thrombo prophylaxis: SCDs Gastric Ulcer prophylaxis: Pantoprazole CODE STATUS: Full code Disclaimer: Despite multiple revisions, due to the dictation software being used, the document bellow may not be free of grammatical errors including phonetic/typographic errors. However, this does not deter from our commitment to providing health care in the patient's best interest in mind. Attending Provider Attestation/Addendum I have examined the patient, reviewed labs and imaging findings, discussed the case with the resident(s), and reviewed entered orders. I agree with the plan of care as outlined in this note, with these additional summaries/recommendations: Patient seen at bedside. Overnight patient had worsening abdominal distention, pain, and nausea. NG tube was replaced to low intermittent suction and we will monitor output. Patient has been passing gas although has not yet had a bowel movement. General surgery following and recommendations appreciated. Patient placed NPO again expect for ice chips. Encourage patient to ambulate as tolerated. Hypernatremia resolved today although continue to monitor closely as patient is NPO again. Patient was also found to have GIORGI on CKD on admission. Creatinine peaked at 4.0 and now down to 2.8. We will continue to avoid nephrotoxic agents and renally dose medications. Overall renal function continues to improve and urine output appropriate. 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 Patient updated on the plan and in agreement. Repeat hematology and chemistry panel in AM. Dr. Joseph MD
--- NOTE | 2024-07-16 22:42 | ESPR_ITS ---
Documentation for date of: 07/16/24 Subjective Subjective Interval history: Patient started having nausea vomiting NGT toLIS Exam Vital Signs Temp Pulse Resp BP Pulse Ox O2 Del Method O2 Flow Rate 97.0 F 70 17 127/59 L 95 Nasal Cannula 2 07/16/24 20:00 07/16/24 20:00 07/16/24 20:00 07/16/24 20:00 07/16/24 20:00 07/16/24 20:00 07/16/24 20:00 Objective Labs 07/16/24 04:32 07/16/24 04:32 Labs: Laboratory Results - last 24 hr 07/16/24 04:32 WBC 9.4 RBC 3.93 L Hgb 11.5 L Hct 36.2 L MCV 92 MCH 29.3 MCHC 31.8 RDW Std Deviation 45.9 H Plt Count 153 Neut % (Auto) 77 Lymph % (Auto) 10 [place] % (Auto) 9 Eos % (Auto) 3 Baso % (Auto) 0 Neut # (Auto) 7.3 Lymph # (Auto) 0.9 L [place] # (Auto) 0.9 H Eos # (Auto) 0.3 Baso # (Auto) 0.0 Immature Gran # (Auto) 0.04 H Absolute Nucleated RBC 0.00 Immature Gran % 0 Nucleated RBC % 0 Sodium 143 Potassium 3.2 L Chloride 96 L Carbon Dioxide 37.5 H Anion Gap 10 BUN 85 H Creatinine 2.8 H Estim Creat Clear Calc 22.4 L eGFR 22 L BUN/Creatinine Ratio 30 H Glucose 176 H D Calculated Osmolality 314 H Calcium 8.9 Corrected Calcium 9.5 Phosphorus 4.2 Magnesium 2.5 Total Bilirubin 0.9 AST 16 ALT 11 Alkaline Phosphatase 60 Total Protein 6.1 Albumin 3.3 L Globulin 2.8 Albumin/Globulin Ratio 1.2 Impressions Impression: # Ileus # small bowel obstruction due to extrinsic compression by the adhesions status post laparotomy and lysis of the adhesions Continue current management Assessment & Plan A&P Narrative Small bowel obstruction/ileus Continue NGT suction Contrast is moving Some of it is all in the right colon hopefully this is an incomplete obstruction and it will resolve with intermittent Gomco suction Patient does have a some kind of a gastroparesis with bloody vomiting on presentation Once the SBO resolves we will consider upper endoscopy to make sure there is no partial stenosis of the pyloric channel Other medical problems include CKD followed by Dr. 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
[2024-07-17] VITALS (7 sets, daily range): BP systolic 123–154; BP diastolic 56–69; PULSE 65–87; RESP 16–18; TEMP 36.2–36.8; O2SAT 91–98; BMI 13.0
[2024-07-17] MEDS: RINGERS LACTATED 1000 ML 1,000 ML 90 ML IV ×2 (01:11→17:06)
[2024-07-17 05:58] LABS: Basophils % (Auto) 0 % (0-2.5); Eosinophils # (Auto) 0.3 Thou/mm3 (0.0-0.5); Eosinophils % (Auto) 4 % (0-10); Hematocrit 33.2 % (41.0-53.0); Hemoglobin 10.6 g/dL (13.5-16.0); Immature Granulocytes % (Auto) 1 % (0-0); Immature Granulocytes Auto 0.04 Thou/mm3 (0.00-0.00); Lymphocytes # (Auto) 1.2 Thou/mm3 (1.0-4.8); Lymphocytes % (Auto) 15 % (10-50); Mean Corpuscular HGB Conc 31.9 g/dl (31.0-37.0); Mean Corpuscular Hemoglobin 29.7 pg (25.0-35.0); Mean Corpuscular Volume 93 fL (80-100); Monocytes # (Auto) 0.6 Thou/mm3 (0.0-0.8); Monocytes % (Auto) 7 % (0-12); Neutrophils # (Auto) 5.9 Thou/mm3 (1.8-7.7); Neutrophils % (Auto) 74 % (37-80); Nucleated Red Blood Cell % 0 /100 WBC (0); Platelet Count 137 Thou/mm3 (140-440); RDW Standard Deviation 45.7 fL (35.1-43.9); Red Blood Count 3.57 Miln/mm3 (4.50-5.90); White Blood Count 8.1 Thou/mm3 (3.8-10.6)
[2024-07-17 06:32] LABS: Alanine Aminotransferase 54 U/L (10-49); Albumin, Serum 3.2 gm/dL (3.4-4.8); Albumin/Globulin Ratio 1.2 (1.2-2.2); Alkaline Phosphatase 55 U/L (46-116); Anion Gap 8 (7-16); Aspartate Amino Transferase 66 U/L (0-34); BUN/Creatinine Ratio 39 Ratio (12-20); Bilirubin,Total 0.9 mg/dL (0.3-1.2); Blood Urea Nitrogen 93 mg/dL (9-23); Calcium 8.5 mg/dL (8.3-10.6); Calcium (Corrected) 9.1 mg/dL (8.5-10.1); Carbon Dioxide 39.7 mMol/L (20.0-31.0); Chloride 97 mMol/L (98-107); Creatinine (Component) 2.4 mg/dL (0.6-1.3); Estimated Creatinine Clearance 26.1 mL/min (>60); Globulin 2.7 gm/dL (2.3-3.5); Glucose 101 mg/dL (74-106); Magnesium 2.4 mg/dL (1.6-2.6); Osmolality,Calculated 317 (275-295); Phosphorous 3.4 mg/dL (2.4-5.1); Potassium 3.5 mMol/L (3.4-5.1); Sodium 145 mMol/L (136-145); Total Protein 5.9 gm/dL (5.7-8.2); eGFR 26 See Note
[2024-07-17] MEDS: PANTOPRAZOLE INJ 40 MG VIAL IVP (08:01)
--- NOTE | 2024-07-17 11:35 | PD.SURPROG ---
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 Pt reports symptoms began a few days ago with abdominal pain that was slowly building, and he had episodes of nausea/vomiting prompting him to seek care in ER. Pt initially states he has never had similar symptoms but then does recount that 5 years ago he had an NG. He states his last BM was two days ago and was normal, and he has been passing gas as recently as today. In ER here workup was consistent with SBO, pt underwent small bowel series which did show minimal contrast in the colon but pt was noted to have delayed passage from the stomach and persistently dilated small bowel loops. So far today pt had 600cc NG output and 1L overnight, however he states he feels better than on admission with no pain, no nausea and is feeling hungry and thirsty. He reports having a colonoscopy 5 years ago and he was told he had signs of constipation PMH: HTN, HLD, CAD PSHx: CABG years ago Meds: includes ASA 81, no other antiplt or anticoagulation Allergies: NKDA Narrative: Denies pain and nausea, passing gas and feeling hungry but had >1.8L of NG output in the past 24h, remaining afebrile with normal WBC Exam Vital Signs Temp Pulse Resp BP Pulse Ox O2 Del Method O2 Flow Rate 97.1 F 66 16 134/67 H 98 Room Air 2 07/17/24 07:55 07/17/24 07:55 07/17/24 07:55 07/17/24 07:55 07/17/24 07:55 07/17/24 07:55 07/17/24 04:00 Constitutional Constitutional: no acute distress Routine Respiratory Exam Respiratory: Present no resp distress Routine Abdominal Exam Abdominal: Present soft and distended (mild distention); Absent tenderness Results Results: Laboratory Laboratory results: results reviewed Assessment & Plan Plan 83M with HTN, HLD, CAD s/p CABG in past on ASA 81 presenting with signs and symptoms of SBO refractory to conservative management, s/p laparotomy with findings of extrinsic compression of the small bowel 07/13, with ongoing NG output Continue NG to LIS Physical therapy, encourage OOB/ambulation Procedures Procedures Exploratory laparotomy, examination of small bowel
--- NOTE | 2024-07-17 14:34 | ESPR_ITS ---
Documentation for date of: 07/17/24 Subjective Subjective Interval history: Patient seen today at the bedside fine awake, alert, oriented x 3. No overnight events reported. Vital signs stable at this time. Labs significant for continued improvement in kidney function. Will continue with nasogastric tube on low intermittent suction at this time as there continues to be significant output. Spoke to General surgery and agrees with repeating small bowel series as patient continues to not being able to have a bowel movement and continues to have abdominal distention. Exam Vital Signs Temp Pulse Resp BP Pulse Ox O2 Del Method O2 Flow Rate 97.9 F 70 18 147/69 H 93 L Room Air 2 07/17/24 12:00 07/17/24 12:00 07/17/24 12:00 07/17/24 12:00 07/17/24 12:00 07/17/24 07:55 07/17/24 04:00 Narrative Exam Physical Exam GENERAL: NAD, AAOx3, NGT in place HEENT: Moist mucosa. Eyes open, symmetrical, & clear CARDIO: Heart RRR, no obvious murmurs PULM: No noted coughing/dyspnea CTA B/L, no R/W/R GI: Abdomen soft, distended, mild tenderness pain on palpation. BS appreciated SKIN/MSK/EXT: No wounds/rashes/edema/amputations, no pain on palpation. Pedal pulses present B/L NEURO: AAOx3, no focal neuro deficits, able to move all 4 extremities Objective Labs 07/18/24 04:27 07/18/24 04:27 Labs: Laboratory Results - last 24 hr 07/17/24 04:44 WBC 8.1 RBC 3.57 L Hgb 10.6 L Hct 33.2 L MCV 93 MCH 29.7 MCHC 31.9 RDW Std Deviation 45.7 H Plt Count 137 L Neut % (Auto) 74 Lymph % (Auto) 15 [place] % (Auto) 7 Eos % (Auto) 4 Baso % (Auto) 0 Neut # (Auto) 5.9 Lymph # (Auto) 1.2 [place] # (Auto) 0.6 Eos # (Auto) 0.3 Baso # (Auto) 0.0 Immature Gran # (Auto) 0.04 H Absolute Nucleated RBC 0.00 Immature Gran % 1 H Nucleated RBC % 0 Sodium 145 Potassium 3.5 Chloride 97 L Carbon Dioxide 39.7 H Anion Gap 8 BUN 93 H Creatinine 2.4 H Estim Creat Clear Calc 26.1 L eGFR 26 L BUN/Creatinine Ratio 39 H Glucose 101 D Calculated Osmolality 317 H Calcium 8.5 Corrected Calcium 9.1 Phosphorus 3.4 Magnesium 2.4 Total Bilirubin 0.9 AST 66 H ALT 54 H Alkaline Phosphatase 55 Total Protein 5.9 Albumin 3.2 L Globulin 2.7 Albumin/Globulin Ratio 1.2 Quality Measures Quality Measures none Advance care planning discussed with:: patient Assessment & Plan Assessment Current Active Medications: Generic Name Dose Route Start Last Admin Trade Name Freq PRN Reason Stop Dose Admin Atorvastatin Calcium 20 mg 07/16/24 09:00 07/17/24 08:00 Atorvastatin Calcium 20 Mg Tablet PO 08/15/24 08:59 Not Given QDAY WILIAN Carvedilol 12.5 mg 07/15/24 21:00 07/17/24 08:00 Carvedilol 12.5 Mg Tablet PO 08/14/24 20:59 Not Given BID WILIAN Hydralazine HCl 10 mg 07/11/24 09:40 Hydralazine Inj 20 Mg/Ml Vial IV 08/10/24 09:44 Q6H PRN SBP >170 DPB >110 Lactated Ringer's 1,000 mls @ 90 mls/hr 07/14/24 15:30 07/17/24 01:11 Lactated Ringers IV 08/13/24 15:29 90 mls/hr .Q11H7M WILIAN Administration Metoclopramide HCl 5 mg 07/11/24 14:30 07/16/24 05:19 Metoclopramide Inj 5 Mg/Ml Vial 2 Ml IVP 08/10/24 14:29 5 mg Q6HR WILIAN Administration Protocol Non-Formulary Medication 81 mg 07/16/24 09:00 07/17/24 08:00 Aspirin PO 08/15/24 08:59 Not Given QDAY WILIAN Pantoprazole Sodium 40 mg 07/10/24 17:15 07/17/24 08:01 Pantoprazole Inj 40 Mg Vial IVP 08/09/24 17:14 40 mg QDAY WILIAN Administration Sevelamer Carbonate 800 mg 07/12/24 12:00 07/17/24 12:03 Sevelamer Carbonate 800 Mg Tablet PO 08/11/24 11:59 Not Given TIDWM WILIAN Terazosin HCl 5 mg 07/15/24 21:00 07/17/24 08:01 Terazosin Hcl 5 Mg Capsule PO 08/14/24 20:59 Not Given BID WILIAN Plan 83-year-old man with past medical history of CAD s/p open heart surgery, hypertension, CKD who came to the ED with chief complaint of abdominal pain. Patient stated that approximately 3 days ago after eating some beans and tortillas hours later started having nausea and multiple episodes of vomiting associated to severe pain until last night that he describes the pain as diffuse and unbearable for which he decided to come to the ED. He stated he was passing gas until last night and that his last bowel movement was this morning and was very scant. Patient denies fever, chills, chest pain shortness of breath or any other associated symptom. He stated that he thinks today probably he vomited blood.Pertinent labs: WBCs within normal limits, hemoglobin 13.9, creatinine 2.7 BUN 59 EGFR 23, lactic acid 3.1, T. bili 1.5 Imaging: CT abdomen pelvis showed Small bowel obstruction pattern, 12 mm fat-containing umbilical hernia, very heavy calcification of right origin of renal artery with no critical stenosis. At the ED the patient received: IV fluids 2 L bolus LR, ondansetron IV, and Reglan IV, NG tube was placed and patient will be admitted for further treatment and management of SBO and GIORGI on CKD. #Hypotonic hypernatremia-resolved Most likely secondary to dehydration and GI losses due to NG tube in the setting of SBO Na+ 146, trending down ? IV fluids LR ? Follow-up CMP #S/p Exploratory laparatomy #Small bowel obstruction Patient present 3 days of nausea vomiting and severe abdominal pain Last bowel movement was this morning that he stated that was a scant, was passing gas until last night CT abdomen pelvis showed Small bowel obstruction pattern, 12 mm fat-containing umbilical hernia General Surgery was consulted we will appreciate recommendation - NGT on LIS - repeat small bowel series ? IV LR ? Protonix 40 mg IV daily ? IV morphine 1 mg every 4 hours as needed ? Low intermittent suction #Gastric outlet Small bowel series showed gastric outlet and small bowel obstruction Gastroenterology was consulted who recommended to start Reglan IV 5 mg every 6 hours ? DC ondansetron ? IV Reglan 5 mg every 6 hours #Upper GI bleed-Ruled out Possibly secondary to erosive gastritis vs Domi-Chou vs PUD? Patient had multiple episodes of vomiting for the last 3 days that could be causing mucosal erosion Less likely GI bleed at this moment hemoglobin stable 13.9 ? Follow-up occult blood test ? Follow-up CBC #GIORGI on CKD stage IIIb Most likely prerenal in the setting of dehydration Patient is following up for CKD and nephrology as an outpatient CT abdomen pelvis shows heavy calcification of right origin of renal artery with no critical stenosis Creatinine baseline around 1.4 Creatinine uptrending to 3.78 Dr Galeano nephrology was consulted who recommended to start patient on IV Bumex 2 mg every 6 hours - Strict ins and outs - IVFs - Avoid nephrotoxic drugs - Renally dose medications - Follow-up renal ultrasound, will order once SBO is resolved #Hyperphosphatemia-resolved Most likely secondary to GIORGI on CKD Nephrology Dr. Galaeno was consulted we will appreciate recommendations ? Sevelamer 800 mg 3 times daily ? Follow-up CMP and phosphorus #History of CAD status post open heart surgery ? Aspirin 81mg qday resumed #History of Hypertension #Hx of Hyperlipidemia Patient is normotensive at this moment ? Carvedilol 12.5mg BID as taken at home - Atorvastatin 40mg HS ? Hydralazine 10 IV every 6 hours as needed for SBP [id number] #Hx of BPH - resumed terazosin as taken at home #Lactic acidosis-resolved Possibly secondary to impaired lactate clearance in the setting of CKD vs bowel ischemia? CT abdomen pelvis shows small bowel obstruction pattern, 12 mm fat-containing umbilical hernia without incarceration Lactic acid trend down to normal limits #Hyperbilirubinemia-resolved Most likely secondary to severe vomiting Liver enzymes within normal limits, alk phos normal less likely obstruction pattern T. bili down trended to normal limits ? Follow-up CMP Patient discussed with my attending Dr. Joseph Price MD PGY-1 Disposition: Medsurg Fluids: LR Feeding: Clear liquid Thrombo prophylaxis: SCDs Gastric Ulcer prophylaxis: Pantoprazole CODE STATUS: Full code Disclaimer: Despite multiple revisions, due to the dictation software being used, the document bellow may not be free of grammatical errors including phonetic/typographic errors. However, this does not deter from our commitment to providing health care in the patient's best interest in mind. Attending Provider Attestation/Addendum I have examined the patient, reviewed labs and imaging findings, discussed the case with the resident(s), and reviewed entered orders. I agree with the plan of care as outlined in this note, with these additional summaries/recommendations: Patient seen at bedside. NG tube placed again overnight and patient reports feeling better today. He denies nausea and vomiting. Abdominal pain significantly improved although not resolved. He has still not had a bowel movement. Continue NG tube to low intermittent suction and we will monitor output. General surgery following and recommendations appreciated. Patient placed NPO again expect for ice chips. Encourage patient to ambulate as tolerated. Patient was also found to have GIORGI on CKD on admission. Creatinine peaked at 4.0 and now down to 2.4. We will continue to avoid nephrotoxic agents and renally dose medications. Overall renal function continues to improve and urine output appropriate. 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 Patient updated on the plan and in agreement. Repeat hematology and chemistry panel in AM. Dr. Joseph MD
--- NOTE | 2024-07-17 14:41 | XR_ITS ---
Examination: Small bowel series Fluoroscopy 4 spot fluoroscopic films of the stomach Exam date and time: July 17, 2024 1559 hours INDICATIONS: Abdominal pain and distention this week TECHNIQUE AND FINDINGS: 120 cc Gastrografin introduced into the feeding tube with 4 spot films of the stomach obtained Fluoroscopy 20 seconds Initial film show contrast only in the stomach IMPRESSION: Initial small bowel series films, recommend follow-up abdomen films at 5:00 PM, 7:00 PM, 9:00 PM
--- NOTE | 2024-07-17 15:15 | PC.SS ---
Rounding: Pending BM
--- NOTE | 2024-07-17 18:00 | XR_ITS ---
Examination: Abdomen AP single view Technique: AP portable supine abdomen, single view Exam date and time: July 17, 2024 1654 hours INDICATIONS: Two-hour delayed film for small bowel series today FINDINGS: Contrast present in dilated small bowel loops measuring up to 5.7 cm However, contrast is now present in the colon IMPRESSION: Negative for complete small bowel obstruction Recommend 1 additional abdomen film at 7:00 PM
--- NOTE | 2024-07-17 18:44 | ESPR_ITS ---
Documentation for date of: 07/17/24 Subjective Subjective Interval history: Bilious drainage through the NGT continues Encourage ambulation Will add a small dose of Reglan Exam Vital Signs Temp Pulse Resp BP Pulse Ox O2 Del Method O2 Flow Rate 98.2 F 70 18 154/59 H 96 Nasal Cannula 2.5 07/17/24 16:00 07/17/24 16:00 07/17/24 16:00 07/17/24 16:00 07/17/24 16:00 07/17/24 16:00 07/17/24 16:00 Objective Labs 07/17/24 04:44 07/17/24 04:44 Labs: Laboratory Results - last 24 hr 07/17/24 04:44 WBC 8.1 RBC 3.57 L Hgb 10.6 L Hct 33.2 L MCV 93 MCH 29.7 MCHC 31.9 RDW Std Deviation 45.7 H Plt Count 137 L Neut % (Auto) 74 Lymph % (Auto) 15 [place] % (Auto) 7 Eos % (Auto) 4 Baso % (Auto) 0 Neut # (Auto) 5.9 Lymph # (Auto) 1.2 [place] # (Auto) 0.6 Eos # (Auto) 0.3 Baso # (Auto) 0.0 Immature Gran # (Auto) 0.04 H Absolute Nucleated RBC 0.00 Immature Gran % 1 H Nucleated RBC % 0 Sodium 145 Potassium 3.5 Chloride 97 L Carbon Dioxide 39.7 H Anion Gap 8 BUN 93 H Creatinine 2.4 H Estim Creat Clear Calc 26.1 L eGFR 26 L BUN/Creatinine Ratio 39 H Glucose 101 D Calculated Osmolality 317 H Calcium 8.5 Corrected Calcium 9.1 Phosphorus 3.4 Magnesium 2.4 Total Bilirubin 0.9 AST 66 H ALT 54 H Alkaline Phosphatase 55 Total Protein 5.9 Albumin 3.2 L Globulin 2.7 Albumin/Globulin Ratio 1.2 Impressions Impression: # Small bowel obstruction Add Reglan 5 mg IV push Q12 Assessment & Plan A&P Narrative Small bowel obstruction/ileus Continue NGT suction Contrast is moving Some of it is all in the right colon hopefully this is an incomplete obstruction and it will resolve with intermittent Gomco suction Patient does have a some kind of a gastroparesis with bloody vomiting on presentation Once the SBO resolves we will consider upper endoscopy to make sure there is no partial stenosis of the pyloric channel Other medical problems include CKD followed by Dr. Galeano and clinical cytopathologist Coronary artery status post CABG Essential hypertension Hyperlipidemia Thank you very much for the opportunity to participate in care of this patient Time Spent With Patient Time: Total time spent is greater than 50% in coordination of care (as documented) at patient's floor/unit and/or counseling patient:
--- NOTE | 2024-07-17 19:00 | XR_ITS ---
Examination: Abdomen AP single view Technique: AP portable supine abdomen, single view Exam date and time: July 17, 2024 at 1800 hours INDICATIONS: 3 hour delayed film for small bowel series, abdominal pain today FINDINGS: Most of the contrast is in the colon on the current study IMPRESSION: Negative for complete small bowel obstruction No further films are needed
--- NOTE | 2024-07-17 19:55 | PC.NURSE ---
Dr. Escalera made aware that the abdomen x-ray that was done at 1900 was negative for SBO[address] Dr. Escalera said to keep patient NPO for now and keep to keep NG tube.
--- NOTE | 2024-07-17 21:00 | XR_ITS ---
Examination: Abdomen AP single view Technique: AP portable supine abdomen, single view Exam date and time: July 17, 2024 1958 hours INDICATIONS: 5 hour delayed film for small bowel series today, abdominal pain and distention FINDINGS: Most of the contrast is in the colon IMPRESSION: Negative for complete small bowel obstruction No further films are needed
--- NOTE | 2024-07-17 22:19 | PC.NURSE ---
Dr. Shah made aware that patient abdominal xray report showed negative for SBO.
[2024-07-18] VITALS (11 sets, daily range): BP systolic 131–155; BP diastolic 50–74; PULSE 61–89; RESP 17–22; TEMP 36.1–36.4; O2SAT 92–99
[2024-07-18] MEDS: RINGERS LACTATED 1000 ML 1,000 ML 90 ML IV ×2 (02:49→18:25)
[2024-07-18 05:47] LABS: Basophils % (Auto) 0 % (0-2.5); Eosinophils # (Auto) 0.2 Thou/mm3 (0.0-0.5); Eosinophils % (Auto) 2 % (0-10); Hematocrit 35.5 % (41.0-53.0); Hemoglobin 11.5 g/dL (13.5-16.0); Immature Granulocytes % (Auto) 0 % (0-0); Immature Granulocytes Auto 0.04 Thou/mm3 (0.00-0.00); Lymphocytes # (Auto) 1.1 Thou/mm3 (1.0-4.8); Lymphocytes % (Auto) 10 % (10-50); Mean Corpuscular HGB Conc 32.4 g/dl (31.0-37.0); Mean Corpuscular Hemoglobin 29.7 pg (25.0-35.0); Mean Corpuscular Volume 92 fL (80-100); Monocytes # (Auto) 0.7 Thou/mm3 (0.0-0.8); Monocytes % (Auto) 6 % (0-12); Neutrophils # (Auto) 9.2 Thou/mm3 (1.8-7.7); Neutrophils % (Auto) 82 % (37-80); Nucleated Red Blood Cell % 0 /100 WBC (0); Platelet Count 166 Thou/mm3 (140-440); RDW Standard Deviation 45.3 fL (35.1-43.9); Red Blood Count 3.87 Miln/mm3 (4.50-5.90); White Blood Count 11.3 Thou/mm3 (3.8-10.6)
[2024-07-18 06:17] LABS: Alanine Aminotransferase 49 U/L (10-49); Albumin, Serum 3.3 gm/dL (3.4-4.8); Albumin/Globulin Ratio 1.2 (1.2-2.2); Alkaline Phosphatase 58 U/L (46-116); Anion Gap 12 (7-16); Aspartate Amino Transferase 52 U/L (0-34); BUN/Creatinine Ratio 38 Ratio (12-20); Blood Urea Nitrogen 72 mg/dL (9-23); Calcium 8.9 mg/dL (8.3-10.6); Calcium (Corrected) 9.5 mg/dL (8.5-10.1); Chloride 103 mMol/L (98-107); Creatinine (Component) 1.9 mg/dL (0.6-1.3); Globulin 2.8 gm/dL (2.3-3.5); Glucose 99 mg/dL (74-106); Magnesium 2.6 mg/dL (1.6-2.6); Osmolality,Calculated 321 (275-295); Phosphorous 2.9 mg/dL (2.4-5.1); Potassium 3.6 mMol/L (3.4-5.1); Sodium 151 mMol/L (136-145); Total Protein 6.1 gm/dL (5.7-8.2); eGFR 35 See Note
[2024-07-18] MEDS: PANTOPRAZOLE INJ 40 MG VIAL IVP (08:09)
[2024-07-18] MEDS: SEVELAMER CARBONATE 800 MG TABLET PO ×3 (08:10→16:51)
[2024-07-18] MEDS: carVEDILOL 12.5 MG TABLET PO ×2 (08:10→20:33)
[2024-07-18] MEDS: ATORVASTATIN CALCIUM 20 MG TABLET PO (08:10)
[2024-07-18] MEDS: TERAZOSIN HCL 5 MG CAPSULE PO ×2 (08:11→20:33)
--- NOTE | 2024-07-18 08:43 | PD.SURPROG ---
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 Pt reports symptoms began a few days ago with abdominal pain that was slowly building, and he had episodes of nausea/vomiting prompting him to seek care in ER. Pt initially states he has never had similar symptoms but then does recount that 5 years ago he had an NG. He states his last BM was two days ago and was normal, and he has been passing gas as recently as today. In ER here workup was consistent with SBO, pt underwent small bowel series which did show minimal contrast in the colon but pt was noted to have delayed passage from the stomach and persistently dilated small bowel loops. So far today pt had 600cc NG output and 1L overnight, however he states he feels better than on admission with no pain, no nausea and is feeling hungry and thirsty. He reports having a colonoscopy 5 years ago and he was told he had signs of constipation PMH: HTN, HLD, CAD PSHx: CABG years ago Meds: includes ASA 81, no other antiplt or anticoagulation Allergies: NKDA Narrative: Small bowel series showed contrast in the colon, patient had 3 bowel movements and has tolerated the NG being clamped since yesterday afternoon. He reports feeling well with no pain or nausea, feeling hungry and thirsty Exam Vital Signs Temp Pulse Resp BP Pulse Ox O2 Del Method O2 Flow Rate 97.0 F 89 18 155/74 H 92 L Nasal Cannula 2 07/18/24 04:00 07/18/24 08:11 07/18/24 04:00 07/18/24 08:11 07/18/24 04:00 07/18/24 04:00 07/18/24 02:01 Constitutional Constitutional: no acute distress Routine Respiratory Exam Respiratory: Present no resp distress Routine Abdominal Exam Abdominal: Present soft; Absent tenderness or distended Results Results: Laboratory Laboratory results: results reviewed Results: Imaging Abdominal x-ray: report reviewed and image reviewed Assessment & Plan Plan 83M with HTN, HLD, CAD s/p CABG in past on ASA 81 presenting with signs and symptoms of SBO refractory to conservative management, s/p laparotomy with findings of extrinsic compression of the small bowel 07/13, gradually recovering DC NG CLD Procedures Procedures Exploratory laparotomy, examination of small bowel
--- NOTE | 2024-07-18 12:49 | ESPR_ITS ---
Documentation for date of: 07/18/24 Subjective Subjective Interval history: No overnight acute events This morning bedside patient stated that he feeling he is feeling very well denied any acute complaints, denied abdominal pain he stated that has 3 bowel movements in the morning that he is passing gas denied nausea or vomiting at this moment. NG tube has been clamped the whole night patient did not have any nausea or vomiting. General surgery recommendations NG tube can be removed and started on clear liquid diet. Exam Vital Signs Temp Pulse Resp BP Pulse Ox O2 Del Method O2 Flow Rate 97.6 F 68 18 155/74 H 96 Nasal Cannula 2 07/18/24 08:00 07/18/24 09:50 07/18/24 09:50 07/18/24 08:11 07/18/24 09:50 07/18/24 08:00 07/18/24 08:00 Narrative Exam General: No acute distress, well appearing, alert, interactive, AOx4 HEENT: NC/AT, PERRL, EOMI, Good conjugate gaze, moist mucous membranes, oropharynx clear. Neck: Supple, No masses, No adenopathy, carotid pulse 2+ bilaterally without bruits, No JVD, normal range of motion. Chest: Symmetrical, atraumatic, and with equal expansion , Nontender on palpation no deformity and no crepitus. CVS: S1 and S2 present, Regular rate and rhythm, No murmurs, rubs or gallops perceived during auscultation. Lungs: Normal respiratory effort, CTAB, no wheezing, rhonchi or rales perceived during auscultation, No intercostal or subcostal retraction. Abdomen : Soft, no tenderness to palpation, midline ex lap incision clean, no guarding ,no rebound, bowel sounds positive Extremities: 1+ edema bilateral lower extremities, warm well perfused, normal tone and ROM, strength and sensation intact, cap refill less than 2, +2 dp equal bilaterally, able to move all 4 extremities spontaneously. Skin: Intact, no rashes, no lesions, no erythema or jaundice noted Neuro: AOx4, no focal neurologic deficits noted, GCS 15 Psych: Appropriate mood and affect. Objective Labs 07/19/24 05:37 07/19/24 05:37 Labs: Laboratory Results - last 24 hr 07/18/24 04:27 WBC 11.3 H RBC 3.87 L Hgb 11.5 L Hct 35.5 L MCV 92 MCH 29.7 MCHC 32.4 RDW Std Deviation 45.3 H Plt Count 166 D Neut % (Auto) 82 H Lymph % (Auto) 10 [place] % (Auto) 6 Eos % (Auto) 2 Baso % (Auto) 0 Neut # (Auto) 9.2 H Lymph # (Auto) 1.1 [place] # (Auto) 0.7 Eos # (Auto) 0.2 Baso # (Auto) 0.0 Immature Gran # (Auto) 0.04 H Absolute Nucleated RBC 0.00 Immature Gran % 0 Nucleated RBC % 0 Sodium 151 H Potassium 3.6 Chloride 103 Carbon Dioxide 36.0 H Anion Gap 12 BUN 72 H Creatinine 1.9 H D Estim Creat Clear Calc 33.0 L eGFR 35 L BUN/Creatinine Ratio 38 H Glucose 99 Calculated Osmolality 321 H Calcium 8.9 Corrected Calcium 9.5 Phosphorus 2.9 Magnesium 2.6 Total Bilirubin 1.0 AST 52 H ALT 49 Alkaline Phosphatase 58 Total Protein 6.1 Albumin 3.3 L Globulin 2.8 Albumin/Globulin Ratio 1.2 Quality Measures Quality Measures none Advance care planning discussed with:: patient Assessment & Plan Assessment Current Active Medications: Generic Name Dose Route Start Last Admin Trade Name Freq PRN Reason Stop Dose Admin Atorvastatin Calcium 20 mg 07/16/24 09:00 07/18/24 08:10 Atorvastatin Calcium 20 Mg Tablet PO 08/15/24 08:59 20 mg QDAY WILIAN Administration Carvedilol 12.5 mg 07/15/24 21:00 07/18/24 08:10 Carvedilol 12.5 Mg Tablet PO 08/14/24 20:59 12.5 mg BID WILIAN Administration Hydralazine HCl 10 mg 07/11/24 09:40 Hydralazine Inj 20 Mg/Ml Vial IV 08/10/24 09:44 Q6H PRN SBP >170 DPB >110 Lactated Ringer's 1,000 mls @ 90 mls/hr 07/14/24 15:30 07/18/24 02:49 Lactated Ringers IV 08/13/24 15:29 90 mls/hr .[id number] WILIAN Administration Metoclopramide HCl 5 mg 07/11/24 14:30 07/16/24 05:19 Metoclopramide Inj 5 Mg/Ml Vial 2 Ml IVP 08/10/24 14:29 5 mg Q6HR WILIAN Administration Protocol Non-Formulary Medication 81 mg 07/16/24 09:00 07/18/24 08:11 Aspirin PO 08/15/24 08:59 Not Given QDAY WILIAN Pantoprazole Sodium 40 mg 07/10/24 17:15 07/18/24 08:09 Pantoprazole Inj 40 Mg Vial IVP 08/09/24 17:14 40 mg QDAY WILIAN Administration Sevelamer Carbonate 800 mg 07/12/24 12:00 07/18/24 12:01 Sevelamer Carbonate 800 Mg Tablet PO 08/11/24 11:59 800 mg TIDWM WILIAN Administration Terazosin HCl 5 mg 07/15/24 21:00 07/18/24 08:11 Terazosin Hcl 5 Mg Capsule PO 08/14/24 20:59 5 mg BID WILIAN Administration Plan 83-year-old man with past medical history of CAD s/p open heart surgery, hypertension, CKD who came to the ED with chief complaint of abdominal pain. Patient stated that approximately 3 days ago after eating some beans and tortillas hours later started having nausea and multiple episodes of vomiting associated to severe pain until last night that he describes the pain as diffuse and unbearable for which he decided to come to the ED. He stated he was passing gas until last night and that his last bowel movement was this morning and was very scant. Patient denies fever, chills, chest pain shortness of breath or any other associated symptom. He stated that he thinks today probably he vomited blood.Pertinent labs: WBCs within normal limits, hemoglobin 13.9, creatinine 2.7 BUN 59 EGFR 23, lactic acid 3.1, T. bili 1.5 Imaging: CT abdomen pelvis showed Small bowel obstruction pattern, 12 mm fat-containing umbilical hernia, very heavy calcification of right origin of renal artery with no critical stenosis. At the ED the patient received: IV fluids 2 L bolus LR, ondansetron IV, and Reglan IV, NG tube was placed and patient will be admitted for further treatment and management of SBO and GIORGI on CKD. #Hypotonic hypernatremia improved Most likely secondary to dehydration and GI losses due to NG tube in the setting of SBO Na+ 151 ? Follow-up CMP #S/p Exploratory laparatomy #Small bowel obstruction resolved Patient present 3 days of nausea vomiting and severe abdominal pain Last bowel movement was this morning that he stated that was a scant, was passing gas until last night CT abdomen pelvis showed Small bowel obstruction pattern, 12 mm fat-containing umbilical hernia General Surgery was consulted we will appreciate recommendation - DC NGT ? Protonix 40 mg IV daily ? IV morphine 1 mg every 4 hours as needed #Gastric outlet improving Small bowel series showed gastric outlet and small bowel obstruction Gastroenterology was consulted who recommended to start Reglan IV 5 mg every 6 hours ? IV Reglan 5 mg every 6 hours #Upper GI bleed-Ruled out Possibly secondary to erosive gastritis vs Domi-Chou vs PUD? Patient had multiple episodes of vomiting for the last 3 days that could be causing mucosal erosion Less likely GI bleed at this moment hemoglobin stable ? Follow-up CBC #GIORGI on CKD stage IIIb improving Most likely prerenal in the setting of dehydration Patient is following up for CKD and nephrology as an outpatient CT abdomen pelvis shows heavy calcification of right origin of renal artery with no critical stenosis Creatinine baseline around 1.4 Creatinine downtrending - Strict ins and outs - IVFs - Avoid nephrotoxic drugs - Renally dose medications #Hyperphosphatemia resolved Most likely secondary to GIORGI on CKD ? Sevelamer 800 mg 3 times daily ? Follow-up CMP and phosphorus #History of CAD status post open heart surgery ? Aspirin 81mg qday resumed #History of Hypertension #Hx of Hyperlipidemia Patient is normotensive at this moment ? Carvedilol 12.5mg BID as taken at home - Atorvastatin 40mg HS ? Hydralazine 10 IV every 6 hours as needed for SBP 170>[id number] #Hx of BPH - resumed terazosin as taken at home #Lactic acidosis resolved #Hyperbilirubinemiaresolved Disposition: Medsurg Fluids: none Feeding: Clear liquid Thrombo prophylaxis: SCDs Gastric Ulcer prophylaxis: Pantoprazole CODE STATUS: Full code Patient discussed with my attending Dr Joseph Castro MD PGY-3 Disclaimer: Despite multiple revisions, due to the dictation software being used, the document bellow may not be free of grammatical errors including phonetic/typographic errors. However, this does not deter from our commitment to providing health care in the patient's best interest in mind. Attending Provider Attestation/Addendum I have examined the patient, reviewed labs and imaging findings, discussed the case with the resident(s), and reviewed entered orders. I agree with the plan of care as outlined in this note, with these additional summaries/recommendations: Patient seen at bedside. Patient had multiple bowel movements overnight. Today patient denies nausea or abdominal pain. NG tube discontinued and patient started on clear liquid diet. We will continue to advance diet as tolerated and monitor for any return of symptoms. Encourage patient to ambulate as tolerated. Patient was also found to have GIORGI on CKD on admission. Creatinine peaked at 4.0 and now down to 1.9. We will continue to avoid nephrotoxic agents and renally dose medications. Overall renal function continues to improve and urine output appropriate. 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 Patient updated on the plan and in agreement. Repeat hematology and chemistry panel in AM. Dr. Joseph MD
--- NOTE | 2024-07-18 20:07 | ESPR_ITS ---
Documentation for date of: 07/18/24 Subjective Subjective Interval history: Patient evaluated NGT out On CLD Exam Vital Signs Temp Pulse Resp BP Pulse Ox O2 Del Method O2 Flow Rate 97.4 F 63 18 131/74 H 99 Nasal Cannula 2 07/18/24 16:00 07/18/24 16:00 07/18/24 16:00 07/18/24 16:00 07/18/24 16:00 07/18/24 16:00 07/18/24 16:00 Objective Labs 07/18/24 04:27 07/18/24 04:27 Labs: Laboratory Results - last 24 hr 07/18/24 04:27 WBC 11.3 H RBC 3.87 L Hgb 11.5 L Hct 35.5 L MCV 92 MCH 29.7 MCHC 32.4 RDW Std Deviation 45.3 H Plt Count 166 D Neut % (Auto) 82 H Lymph % (Auto) 10 [place] % (Auto) 6 Eos % (Auto) 2 Baso % (Auto) 0 Neut # (Auto) 9.2 H Lymph # (Auto) 1.1 [place] # (Auto) 0.7 Eos # (Auto) 0.2 Baso # (Auto) 0.0 Immature Gran # (Auto) 0.04 H Absolute Nucleated RBC 0.00 Immature Gran % 0 Nucleated RBC % 0 Sodium 151 H Potassium 3.6 Chloride 103 Carbon Dioxide 36.0 H Anion Gap 12 BUN 72 H Creatinine 1.9 H D Estim Creat Clear Calc 33.0 L eGFR 35 L BUN/Creatinine Ratio 38 H Glucose 99 Calculated Osmolality 321 H Calcium 8.9 Corrected Calcium 9.5 Phosphorus 2.9 Magnesium 2.6 Total Bilirubin 1.0 AST 52 H ALT 49 Alkaline Phosphatase 58 Total Protein 6.1 Albumin 3.3 L Globulin 2.8 Albumin/Globulin Ratio 1.2 Impressions Impression: Small bowel obstruction due to extrinsic compression tolerating clear liquid diet Assessment & Plan A&P Narrative Small bowel obstruction/ileus Continue NGT suction Contrast is moving Some of it is all in the right colon hopefully this is an incomplete obstruction and it will resolve with intermittent Gomco suction Patient does have a some kind of a gastroparesis with bloody vomiting on presentation Once the SBO resolves we will consider upper endoscopy to make sure there is no partial stenosis of the pyloric channel Other medical problems include CKD 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
[2024-07-19] VITALS (11 sets, daily range): BP systolic 129–149; BP diastolic 58–73; PULSE 58–72; RESP 16–20; TEMP 36.1–36.8; O2SAT 94–100
[2024-07-19] MEDS: RINGERS LACTATED 1000 ML 1,000 ML 90 ML IV (05:39)
[2024-07-19 06:12] LABS: Basophils % (Auto) 0 % (0-2.5); Eosinophils # (Auto) 0.2 Thou/mm3 (0.0-0.5); Eosinophils % (Auto) 2 % (0-10); Hemoglobin 9.9 g/dL (13.5-16.0); Immature Granulocytes % (Auto) 1 % (0-0); Immature Granulocytes Auto 0.05 Thou/mm3 (0.00-0.00); Lymphocytes # (Auto) 1.3 Thou/mm3 (1.0-4.8); Lymphocytes % (Auto) 13 % (10-50); Mean Corpuscular HGB Conc 31.9 g/dl (31.0-37.0); Mean Corpuscular Hemoglobin 29.6 pg (25.0-35.0); Mean Corpuscular Volume 93 fL (80-100); Monocytes # (Auto) 0.6 Thou/mm3 (0.0-0.8); Monocytes % (Auto) 6 % (0-12); Neutrophils # (Auto) 7.7 Thou/mm3 (1.8-7.7); Neutrophils % (Auto) 78 % (37-80); Nucleated Red Blood Cell % 0 /100 WBC (0); Platelet Count 153 Thou/mm3 (140-440); RDW Standard Deviation 45.2 fL (35.1-43.9); Red Blood Count 3.35 Miln/mm3 (4.50-5.90); White Blood Count 9.8 Thou/mm3 (3.8-10.6)
[2024-07-19 06:47] LABS: Alanine Aminotransferase 32 U/L (10-49); Albumin, Serum 2.9 gm/dL (3.4-4.8); Albumin/Globulin Ratio 1.2 (1.2-2.2); Alkaline Phosphatase 46 U/L (46-116); Anion Gap 5 (7-16); Aspartate Amino Transferase 29 U/L (0-34); BUN/Creatinine Ratio 30 Ratio (12-20); Bilirubin,Total 0.9 mg/dL (0.3-1.2); Blood Urea Nitrogen 48 mg/dL (9-23); Calcium 8.3 mg/dL (8.3-10.6); Calcium (Corrected) 9.2 mg/dL (8.5-10.1); Carbon Dioxide 38.7 mMol/L (20.0-31.0); Chloride 103 mMol/L (98-107); Creatinine (Component) 1.6 mg/dL (0.6-1.3); Estimated Creatinine Clearance 39.2 mL/min (>60); Globulin 2.5 gm/dL (2.3-3.5); Glucose 115 mg/dL (74-106); Magnesium 2.1 mg/dL (1.6-2.6); Osmolality,Calculated 306 (275-295); Phosphorous 2.9 mg/dL (2.4-5.1); Potassium 3.5 mMol/L (3.4-5.1); Sodium 147 mMol/L (136-145); Total Protein 5.4 gm/dL (5.7-8.2); eGFR 43 See Note
--- NOTE | 2024-07-19 07:07 | ESPR_ITS ---
Documentation for date of: 07/19/24 Subjective Subjective Interval history: Not overnight acute events This morning at the bedside, patient is AOx4, saturating well on room air, responding questions properly, tolerating clear liquid diet, denies any acute complaints at the moment, denied abdominal pain, nausea, vomiting. He endorsed having 1 bowel movement this morning. Advance diet to full liquids and assess tolerance. After trying to remove the Clemons he was presenting hematuria for which we will keep Clemons at this moment and close monitoring . Exam Vital Signs Temp Pulse Resp BP Pulse Ox O2 Del Method O2 Flow Rate 96.9 F 58 L 19 142/60 H 94 L Nasal Cannula 2 07/19/24 04:00 07/19/24 04:00 07/19/24 04:00 07/19/24 04:00 07/19/24 04:00 07/19/24 04:00 07/19/24 04:00 Narrative Exam General: No acute distress, well appearing, alert, interactive, AOx4 HEENT: NC/AT, PERRL, EOMI, Good conjugate gaze, moist mucous membranes, oropharynx clear. Neck: Supple, No masses, No adenopathy, carotid pulse 2+ bilaterally without bruits, No JVD, normal range of motion. Chest: Symmetrical, atraumatic, and with equal expansion , Nontender on palpation no deformity and no crepitus. CVS: S1 and S2 present, Regular rate and rhythm, No murmurs, rubs or gallops perceived during auscultation. Lungs: Normal respiratory effort, CTAB, no wheezing, rhonchi or rales perceived during auscultation, No intercostal or subcostal retraction. Abdomen : Soft, no tenderness to palpation, midline ex lap incision clean, no guarding ,no rebound, bowel sounds positive Extremities: 1+ edema bilateral lower extremities, warm well perfused, normal tone and ROM, strength and sensation intact, cap refill less than 2, +2 dp equal bilaterally, able to move all 4 extremities spontaneously. Skin: Intact, no rashes, no lesions, no erythema or jaundice noted Neuro: AOx4, no focal neurologic deficits noted, GCS 15 Psych: Appropriate mood and affect. Objective Labs 07/19/24 05:37 07/19/24 05:37 Labs: Laboratory Results - last 24 hr 07/19/24 05:37 WBC 9.8 RBC 3.35 L Hgb 9.9 L Hct 31.0 L MCV 93 MCH 29.6 MCHC 31.9 RDW Std Deviation 45.2 H Plt Count 153 Neut % (Auto) 78 Lymph % (Auto) 13 Fergus % (Auto) 6 Eos % (Auto) 2 Baso % (Auto) 0 Neut # (Auto) 7.7 Lymph # (Auto) 1.3 Fergus # (Auto) 0.6 Eos # (Auto) 0.2 Baso # (Auto) 0.0 Immature Gran # (Auto) 0.05 H Absolute Nucleated RBC 0.00 Immature Gran % 1 H Nucleated RBC % 0 Sodium 147 H Potassium 3.5 Chloride 103 Carbon Dioxide 38.7 H Anion Gap 5 L BUN 48 H Creatinine 1.6 H Estim Creat Clear Calc 39.2 L eGFR 43 L BUN/Creatinine Ratio 30 H Glucose 115 H Calculated Osmolality 306 H Calcium 8.3 Corrected Calcium 9.2 Phosphorus 2.9 Magnesium 2.1 Total Bilirubin 0.9 AST 29 ALT 32 Alkaline Phosphatase 46 D Total Protein 5.4 L Albumin 2.9 L Globulin 2.5 Albumin/Globulin Ratio 1.2 Quality Measures Quality Measures none Advance care planning discussed with:: patient Assessment & Plan Assessment Current Active Medications: Generic Name Dose Route Start Last Admin Trade Name Freq PRN Reason Stop Dose Admin Atorvastatin Calcium 20 mg 07/16/24 09:00 07/18/24 08:10 Atorvastatin Calcium 20 Mg Tablet PO 08/15/24 08:59 20 mg QDAY WILIAN Administration Carvedilol 12.5 mg 07/15/24 21:00 07/18/24 20:33 Carvedilol 12.5 Mg Tablet PO 08/14/24 20:59 12.5 mg BID WILIAN Administration Hydralazine HCl 10 mg 07/11/24 09:40 Hydralazine Inj 20 Mg/Ml Vial IV 08/10/24 09:44 Q6H PRN SBP >170 DPB >110 Lactated Ringer's 1,000 mls @ 90 mls/hr 07/14/24 15:30 07/19/24 05:39 Lactated Ringers IV 08/13/24 15:29 90 mls/hr .[id number] WILIAN Administration Metoclopramide HCl 5 mg 07/11/24 14:30 07/16/24 05:19 Metoclopramide Inj 5 Mg/Ml Vial 2 Ml IVP 08/10/24 14:29 5 mg Q6HR WILIAN Administration Protocol Non-Formulary Medication 81 mg 07/16/24 09:00 07/18/24 08:11 Aspirin PO 08/15/24 08:59 Not Given QDAY WILIAN Pantoprazole Sodium 40 mg 07/10/24 17:15 07/18/24 08:09 Pantoprazole Inj 40 Mg Vial IVP 08/09/24 17:14 40 mg QDAY WILIAN Administration Sevelamer Carbonate 800 mg 07/12/24 12:00 07/18/24 16:51 Sevelamer Carbonate 800 Mg Tablet PO 08/11/24 11:59 800 mg TIDWM WILIAN Administration Terazosin HCl 5 mg 07/15/24 21:00 07/18/24 20:33 Terazosin Hcl 5 Mg Capsule PO 08/14/24 20:59 5 mg BID WILIAN Administration Plan 83-year-old man with past medical history of CAD s/p open heart surgery, hypertension, CKD who came to the ED with chief complaint of abdominal pain. Patient stated that approximately 3 days ago after eating some beans and tortillas hours later started having nausea and multiple episodes of vomiting associated to severe pain until last night that he describes the pain as diffuse and unbearable for which he decided to come to the ED. He stated he was passing gas until last night and that his last bowel movement was this morning and was very scant. Patient denies fever, chills, chest pain shortness of breath or any other associated symptom. He stated that he thinks today probably he vomited blood.Pertinent labs: WBCs within normal limits, hemoglobin 13.9, creatinine 2.7 BUN 59 EGFR 23, lactic acid 3.1, T. bili 1.5 Imaging: CT abdomen pelvis showed Small bowel obstruction pattern, 12 mm fat-containing umbilical hernia, very heavy calcification of right origin of renal artery with no critical stenosis. At the ED the patient received: IV fluids 2 L bolus LR, ondansetron IV, and Reglan IV, NG tube was placed and patient will be admitted for further treatment and management of SBO and GIORGI on CKD. #Hypotonic hypernatremia improving Most likely secondary to dehydration and GI losses due to NG tube in the setting of SBO Na+ 147 downtrending ? Follow-up CMP #S/p Exploratory laparatomy #Small bowel obstruction resolved Patient present 3 days of nausea vomiting and severe abdominal pain Last bowel movement was this morning that he stated that was a scant, was passing gas until last night CT abdomen pelvis showed Small bowel obstruction pattern, 12 mm fat-containing umbilical hernia General Surgery was consulted, who recommended to advance diet to full liquids and assess for tolerance ? Protonix 40 mg IV daily ? IV morphine 1 mg every 4 hours as needed #Gastric outlet improving Small bowel series showed gastric outlet and small bowel obstruction Gastroenterology was consulted who recommended to start Reglan IV 5 mg every 6 hours ? IV Reglan 5 mg every 6 hours #Upper GI bleed-Ruled out Possibly secondary to erosive gastritis vs Domi-Chou vs PUD? Patient had multiple episodes of vomiting for the last 3 days that could be causing mucosal erosion Less likely GI bleed at this moment hemoglobin stable otherwise has been downtrending ? Follow-up CBC #GIORGI on CKD stage IIIb improving Most likely prerenal in the setting of dehydration Patient is following up for CKD and nephrology as an outpatient CT abdomen pelvis shows heavy calcification of right origin of renal artery with no critical stenosis Creatinine baseline around 1.4 Creatinine downtrending 1.6 - Strict ins and outs - IVFs - Avoid nephrotoxic drugs - Renally dose medications #Hematuria Possibly secondary to mechanical trauma Patient has past medical history BPH for which during removal of the Clemons catheter patient presented with hematuria on the Clemons for which we will keep the Clemons in and monitor and do bladder irrigations in case of pain necessary ? Follow-up CBC #History of CAD status post open heart surgery ? Aspirin 81mg qday resumed #History of Hypertension #Hx of Hyperlipidemia Patient is normotensive at this moment ? Carvedilol 12.5mg BID as taken at home - Atorvastatin 40mg HS ? Hydralazine 10 IV every 6 hours as needed for SBP [id number] #Hx of BPH - resumed terazosin as taken at home #Lactic acidosis resolved #Hyperbilirubinemia resolved #Hyperphosphatemia resolved Disposition: Medsurg Fluids: none Feeding: Full liquid diet and advance as tolerated Thrombo prophylaxis: SCDs Gastric Ulcer prophylaxis: Pantoprazole CODE STATUS: Full code Patient discussed with my attending Dr Joseph Castro MD PGY-3 Disclaimer: Despite multiple revisions, due to the dictation software being used, the document bellow may not be free of grammatical errors including phonetic/typographic errors. However, this does not deter from our commitment to providing health care in the patient's best interest in mind. Attending Provider Attestation/Addendum I have examined the patient, reviewed labs and imaging findings, discussed the case with the resident(s), and reviewed entered orders. I agree with the plan of care as outlined in this note, with these additional summaries/recommendations: Patient seen at bedside. No acute overnight events. Patient reports he had another bowel movement this morning. Patient tolerated clear liquid diet yesterday and we will advance to full liquid today. We will continue slow advancement of diet given patients recurrence of symptoms after previously starting diet. We will continue to advance diet as tolerated and monitor for any return of symptoms. Encourage patient to ambulate as tolerated. Patient was also found to have GIORGI on CKD on admission. Creatinine peaked at 4.0 and now down to 1.6. We will continue to avoid nephrotoxic agents and renally dose medications. Overall renal function continues to improve and urine output appropriate. Continue home phosphate binder and patients receiving associate store consulted. Patient updated on the plan and in agreement. Repeat hematology and chemistry panel in AM. Dr. Joseph MD
[2024-07-19] MEDS: PANTOPRAZOLE INJ 40 MG VIAL IVP (08:07)
[2024-07-19] MEDS: SEVELAMER CARBONATE 800 MG TABLET PO ×2 (08:08→11:23)
[2024-07-19] MEDS: carVEDILOL 12.5 MG TABLET PO ×2 (08:08→20:31)
[2024-07-19] MEDS: TERAZOSIN HCL 5 MG CAPSULE PO ×2 (08:09→20:31)
[2024-07-19] MEDS: ATORVASTATIN CALCIUM 20 MG TABLET PO (08:09)
--- NOTE | 2024-07-19 18:30 | PD.IMPROG ---
Documentation for date of: 07/19/24 Subjective Subjective Interval history: Passing flatus no nausea vomiting had a bowel movement Advance diet as tolerated Exam Vital Signs Temp Pulse Resp BP Pulse Ox O2 Del Method O2 Flow Rate 97.8 F 69 16 149/58 H 96 Room Air 2 07/19/24 15:31 07/19/24 15:31 07/19/24 15:31 07/19/24 15:31 07/19/24 15:31 07/19/24 15:31 07/19/24 11:29 Objective Labs 07/19/24 05:37 07/19/24 05:37 Labs: Laboratory Results - last 24 hr 07/19/24 05:37 WBC 9.8 RBC 3.35 L Hgb 9.9 L Hct 31.0 L MCV 93 MCH 29.6 MCHC 31.9 RDW Std Deviation 45.2 H Plt Count 153 Neut % (Auto) 78 Lymph % (Auto) 13 Dolores % (Auto) 6 Eos % (Auto) 2 Baso % (Auto) 0 Neut # (Auto) 7.7 Lymph # (Auto) 1.3 Dolores # (Auto) 0.6 Eos # (Auto) 0.2 Baso # (Auto) 0.0 Immature Gran # (Auto) 0.05 H Absolute Nucleated RBC 0.00 Immature Gran % 1 H Nucleated RBC % 0 Sodium 147 H Potassium 3.5 Chloride 103 Carbon Dioxide 38.7 H Anion Gap 5 L BUN 48 H Creatinine 1.6 H Estim Creat Clear Calc 39.2 L eGFR 43 L BUN/Creatinine Ratio 30 H Glucose 115 H Calculated Osmolality 306 H Calcium 8.3 Corrected Calcium 9.2 Phosphorus 2.9 Magnesium 2.1 Total Bilirubin 0.9 AST 29 ALT 32 Alkaline Phosphatase 46 D Total Protein 5.4 L Albumin 2.9 L Globulin 2.5 Albumin/Globulin Ratio 1.2 Impressions Impression: Small bowel obstruction resolving due to extrinsic compression Continue current management Assessment & Plan A&P Narrative Small bowel obstruction/ileus Continue NGT suction Contrast is moving Some of it is all in the right colon hopefully this is an incomplete obstruction and it will resolve with intermittent Gomco suction Patient does have a some kind of a gastroparesis with bloody vomiting on presentation Once the SBO resolves we will consider upper endoscopy to make sure there is no partial stenosis of the pyloric channel Other medical problems include CKD 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
[2024-07-20] VITALS (12 sets, daily range): BP systolic 128–150; BP diastolic 47–88; PULSE 51–80; RESP 16–20; TEMP 36.1–36.6; O2SAT 93–98
[2024-07-20 06:09] LABS: Basophils % (Auto) 0 % (0-2.5); Eosinophils # (Auto) 0.2 Thou/mm3 (0.0-0.5); Eosinophils % (Auto) 2 % (0-10); Hemoglobin 9.8 g/dL (13.5-16.0); Immature Granulocytes % (Auto) 0 % (0-0); Immature Granulocytes Auto 0.04 Thou/mm3 (0.00-0.00); Lymphocytes # (Auto) 1.4 Thou/mm3 (1.0-4.8); Lymphocytes % (Auto) 15 % (10-50); Mean Corpuscular HGB Conc 32.7 g/dl (31.0-37.0); Mean Corpuscular Hemoglobin 30.3 pg (25.0-35.0); Mean Corpuscular Volume 93 fL (80-100); Monocytes # (Auto) 0.7 Thou/mm3 (0.0-0.8); Monocytes % (Auto) 7 % (0-12); Neutrophils # (Auto) 7.4 Thou/mm3 (1.8-7.7); Neutrophils % (Auto) 76 % (37-80); Nucleated Red Blood Cell % 0 /100 WBC (0); Platelet Count 151 Thou/mm3 (140-440); RDW Standard Deviation 44.1 fL (35.1-43.9); Red Blood Count 3.23 Miln/mm3 (4.50-5.90); White Blood Count 9.8 Thou/mm3 (3.8-10.6)
[2024-07-20 06:32] LABS: Alanine Aminotransferase 24 U/L (10-49); Albumin, Serum 2.9 gm/dL (3.4-4.8); Albumin/Globulin Ratio 1.2 (1.2-2.2); Alkaline Phosphatase 47 U/L (46-116); Anion Gap 6 (7-16); Aspartate Amino Transferase 24 U/L (0-34); BUN/Creatinine Ratio 24 Ratio (12-20); Bilirubin,Total 0.6 mg/dL (0.3-1.2); Blood Urea Nitrogen 34 mg/dL (9-23); Calcium 8.6 mg/dL (8.3-10.6); Calcium (Corrected) 9.5 mg/dL (8.5-10.1); Carbon Dioxide 36.4 mMol/L (20.0-31.0); Chloride 104 mMol/L (98-107); Creatinine (Component) 1.4 mg/dL (0.6-1.3); Estimated Creatinine Clearance 44.8 mL/min (>60); Globulin 2.4 gm/dL (2.3-3.5); Glucose 105 mg/dL (74-106); Magnesium 1.9 mg/dL (1.6-2.6); Osmolality,Calculated 298 (275-295); Phosphorous 2.7 mg/dL (2.4-5.1); Potassium 3.7 mMol/L (3.4-5.1); Sodium 146 mMol/L (136-145); Total Protein 5.3 gm/dL (5.7-8.2); eGFR 50 See Note
[2024-07-20] MEDS: TERAZOSIN HCL 5 MG CAPSULE PO ×2 (08:22→20:30)
[2024-07-20] MEDS: ATORVASTATIN CALCIUM 20 MG TABLET PO (08:23)
[2024-07-20] MEDS: PANTOPRAZOLE INJ 40 MG VIAL IVP (08:23)
[2024-07-20] MEDS: ASPIRIN EC 81 MG TABEC PO (08:23)
[2024-07-20] MEDS: carVEDILOL 12.5 MG TABLET PO ×2 (08:23→20:30)
[2024-07-20] MEDS: Magnesium Sulfate 4 GM Ivpb 4 GM/50 ML BAG IV (08:48)
--- NOTE | 2024-07-20 10:37 | PC.CC ---
Pt entered into [facility]
--- NOTE | 2024-07-20 12:39 | ESDS_ITS ---
<Statement entered by Yuridia Castro MD - 07/20/24 15:08> I discussed with and supervised the internet site designer physician who took care of this patient. I personally saw and examined the patient and discussed the assessment and plan with the entire medicine team, including my attending Dr. Ruiz, I agree with the assessment and plan as documented below Patient seen and examined at bedside today. Labs and imaging reviewed. All questions were answered and recommendation were given to come to the ED anytime he is not feeling well Patient will be discharged home with home health ? Patient will need to follow-up with PCP 1 week after discharge ? Patient will need to follow-up with general surgery in 2 weeks Yuridia Castro MD PGY-3 Disclaimer: Despite multiple revisions, due to the dictation software being used, the document bellow may not be free of grammatical errors including phonetic/typographic errors. However, this does not deter from our commitment to providing health care in the patient's best interest in mind. <Statement entered by Lawanda Pitts MD - 07/20/24 14:57> I discussed with and supervised the internet site designer physician who took care of this patient. I personally saw and examined the patient and discussed the assessment and plan with the entire medicine team, including my attending , I agree with most of the assessment and plan as documented below Lawanda Pitts M.D. PGY-2 Planned Discharge Date 07/20/24 DS: Providers Provider Date of admission: 07/10/24 17:03 Primary care physician: Physician No Primary/Family Admitting Provider: Basilio Lemons MD Attending Provider on Admission: Gume Ruiz MD Consults: 07/11/24 09:38 Consult to Nephrology Stat Comment: GIORGI on CKD Consulting Provider: Ramirez Galeano 07/11/24 14:27 Consult to Gastroenterology Stat Comment: gastric outlet Consulting Provider: Nolan Khan 07/12/24 08:21 Consult to General Surgery Stat Comment: SBO Consulting Provider: Sarah Murillo 07/17/24 11:34 Referral Physical Therapy Routine Comment: Physician Instructions: Attending Provider on DC: Gume Ruiz MD Discharging Provider: Charles Price MD Anticipated date of discharge: 07/20/24 DS: Diagnosis Problem List Completed Was Problem List Reviewed/Reconciled?: Yes Hospital Course Hospital Course Hospital course: 83-year-old man with past medical history of CAD s/p open heart surgery, hypertension, CKD who came to the ED with chief complaint of abdominal pain. Patient stated that approximately 3 days ago after eating some beans and tortillas hours later started having nausea and multiple episodes of vomiting associated to severe pain until last night that he describes the pain as diffuse and unbearable for which he decided to come to the ED. He stated he was passing gas until last night and that his last bowel movement was this morning and was very scant. Patient will be admitted for further treatment and management of SBO and GIORGI on CKD. During hospital stay small bowel obstruction was managed with small bowel series found to be obstructed General Surgery was consulted and had exploratory laparotomy. Postoperatively patient was managed with pain medications and advancing diet as tolerated. Patient was also found to have hypernatremia during hospitalization is likely secondary to GI losses and NG tube output. Patient also had EGD and colonoscopy by GI services for possible GI bleed which was ruled out. Patient also started developing hematuria from Clemons's catheter likely secondary to trauma from Clemons insertion. At this time patient is medically stable for discharge. Please follow-up with your primary care physician within 1 week of discharge. Please follow-up with general surgery within 2 weeks of discharge Please follow-up with urology in regards to discontinuing Clemons's catheter. Please continue all home medications as prescribed. Should any symptoms recur or worsen patient is instructed to return to the ED Problem List: #Hypotonic hypernatremia improving #S/p Exploratory laparatomy #Small bowel obstruction resolved #Gastric outlet improving #Upper GI bleed-Ruled out #GIORGI on CKD stage IIIb improving #Hematuria #History of CAD status post open heart surgery #History of Hypertension #Hx of Hyperlipidemia #Hx of BPH #Lactic acidosis resolved #Hyperbilirubinemia resolved #Hyperphosphatemia resolved Case discussed with my seniors Dr. Castro PGY-3, Dr. Pitts PGY-[address] Joseph Price MD PGY-1 Status at Discharge Functional status at discharge: independent ambulation Overall status at discharge: patient is back to baseline Time Spent with Patient Time attestation: Total time spent providing and/or coordinating discharge services: Time spent: Greater than 30 minutes Home Health Home Health Referral Orders: 07/20/24 10:06 Home Health Referral Routine Reason For Exam: Physical therapy Home-Bound The patient must either because of illness or injury, need the aid of supportive devices such as crutches, canes, wheelchairs, and walkers; the use of special transportation; or the assistance of another person in order to leave their place of residence; OR have a condition such that leaving his or her home is medically contraindicated. In addition, the patient also meets the following criteria: patient is normally unable to leave the home and leaving home requires considerable taxing effort. Addendum to Home Health Certification Practitioner's Certification: I certify that the patient has been under my care in the hospital and the care of attending physician (see below). We had a [id number] encounter on (see date below). My clinical findings indicate that the patient is home bound per the above criteria and the Home Health Services noted in these orders are medically necessary. The primary reason for the [id number] encounter is related to the fact that the patient requires home health services. Date Certifying [id number] Physician Encounter: 07/10/24 Physician's Name who will Assume Oversight for HH Services: Yaneli Malone [facility] - Community Resources: Yes PT to Evaluate: Yes PT to evaluate and provide a treatmnet plan to increase patient's mobility and strength. Wound Care: No IV Therapy: No RN Safety Evaluation: Yes RN to evaluate and create a plan of care that will produce positive outcomes. Palliative Treatment: No Palliative treatment and evaluate the need for hospice. Home Health Aide - Personal Care: Yes Home Health Aide to assist with any ADL's. Exam Vital Signs Temp Pulse Resp BP Pulse Ox O2 Del Method O2 Flow Rate 97.1 F 80 16 148/60 H 97 Room Air 2 07/20/24 08:00 07/20/24 08:23 07/20/24 08:18 07/20/24 08:23 07/20/24 08:18 07/20/24 08:00 07/20/24 08:18 Narrative Exam Physical Exam GENERAL: NAD, AAOx3 HEENT: Moist mucosa. Eyes open, symmetrical, & clear CARDIO: Heart RRR, no obvious murmurs PULM: No noted coughing/dyspnea CTA B/L, no R/W/R GI: Abdomen soft, nondistended, no pain on palpation. BSx4 SKIN/MSK/EXT: No wounds/rashes/edema/amputations, no pain on palpation. Pedal pulses present B/L NEURO: AAOx3, no focal neuro deficits, able to move all 4 extremities Discharge Plan Plan Patient Disposition: Home w/HOME HEALTH Disposition Comment: Stable Care Plan Goals: Please follow-up with your primary care physician within 1 week of discharge Please follow-up with general surgery within 2 weeks of discharge Please follow-up with urology in regards to discontinuing Clemons's catheter Please continue all home medications as prescribed. Should any symptoms recur or worsen patient is instructed to return to the ED Prescriptions/Referrals Prescriptions/Med Rec: Continued carvedilol 12.5 mg Tablet 12.5 mg PO BID Rx Instructions: must administer with a meal/food lisinopril 20 mg Tablet 10 mg PO QDAY aspirin 81 mg Capsule 81 mg PO QDAY atorvastatin [Lipitor] 20 mg Tablet 20 mg PO QDAY felodipine 5 mg Tablet Extended Release 24 Hr 5 mg PO QDAY pantoprazole [Protonix] 40 mg Tablet,Delayed Release (Dr/Ec) 40 mg PO QDAY hydrochlorothiazide 12.5 mg Capsule 12.5 mg PO QAM furosemide [Lasix] 40 mg tablet 40 mg PO QDAY terazosin 5 mg capsule 5 mg PO BID Referrals: Sarah Murillo MD [Physician] - (You will receive a phone call to confirm a follow-up appt with me in 1 week) No Primary/Family,Physician [Primary Care Provider] - Patient/Caregiver Discharge Instructions Print Language: Croatian Stand Alone Forms: Seema Award Info., Patient Portal Info Letter Discharge Order Discharge Orders: Discharge (Routine); Ordered 07/20/24 Ordered By: Charles Price Quality Discharge Quality Measures VTE prophylaxis Attestestation MD Attestation I have examined the patient, reviewed labs and imaging findings, discussed the case with the resident(s), and reviewed entered orders. I agree with the plan of care as outlined in this note. Time Spent: [address] Joseph MD
--- NOTE | 2024-07-20 15:24 | ESPR_ITS ---
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 Pt reports symptoms began a few days ago with abdominal pain that was slowly building, and he had episodes of nausea/vomiting prompting him to seek care in ER. Pt initially states he has never had similar symptoms but then does recount that 5 years ago he had an NG. He states his last BM was two days ago and was normal, and he has been passing gas as recently as today. In ER here workup was consistent with SBO, pt underwent small bowel series which did show minimal cont rast in the colon but pt was noted to have delayed passage from the stomach and persistently dilated small bowel loops. So far today pt had 600cc NG output and 1L overnight, however he states he feels better than on admission with no pain, no nausea and is feeling hungry and thirsty. He reports having a colonoscopy 5 years ago and he was told he had signs of constipation PMH: HTN, HLD, CAD PSHx: CABG years ago Meds: includes ASA 81, no other antiplt or anticoagulation Allergies: NKDA Narrative: No pain or nausea, tolerating FLD and having BMs, WBC normal and Cr continuing to downtrend Exam Vital Signs Temp Pulse Resp BP Pulse Ox O2 Del Method O2 Flow Rate 97.3 F 69 19 150/57 H 93 L Nasal Cannula 2 07/20/24 12:00 07/20/24 12:00 07/20/24 12:07/20/24 12:07/20/24 12:07/20/24 12:00 07/20/24 12:00 Constitutional Constitutional: no acute distress Routine Respiratory Exam Respiratory: Present no resp distress Routine Abdominal Exam Abdominal: Present soft; Absent tenderness or distended Results Results: Laboratory Laboratory results: results reviewed Assessment & Plan Plan 83M with HTN, HLD, CAD s/p CABG in past on ASA 81 presenting with signs and symptoms of SBO refractory to conservative management, s/p laparotomy with findings of extrinsic compression of the small bowel 07/13, gradually recovering Advance to regular bland diet OK for dc if tolerating Will follow up as outpt Procedures Procedures Exploratory laparotomy, examination of small bowel
--- NOTE | 2024-07-20 16:19 | PC.SS ---
Follow up note: Patient to d/c home today with services.
--- NOTE | 2024-07-20 20:26 | PC.NURSE ---
bladder scan post void= 0ml.
--- NOTE | 2024-07-20 20:31 | PC.NURSE ---
96% O2 sat with O2 inh on at 2L/min/nc- Dc'd O2 inh and kept on room air.
--- NOTE | 2024-07-20 20:39 | PC.NURSE ---
Dr. Art called back rn- Per okay for pt to be discharged tomorrow. Monitor for bleeding in urine.
--- NOTE | 2024-07-20 21:33 | PD.IMPROG ---
Documentation for date of: 07/20/24 Subjective Subjective Interval history: patient evaluated Doing very well Okay to discharge patient no need for GI follow-up Exam Vital Signs Temp Pulse Resp BP Pulse Ox O2 Del Method O2 Flow Rate 97.5 F 60 20 136/66 H 96 Nasal Cannula 2 07/20/24 20:00 07/20/24 20:30 07/20/24 20:00 07/20/24 20:30 07/20/24 20:00 07/20/24 20:00 07/20/24 16:00 Objective Labs 07/20/24 05:38 07/20/24 05:38 Labs: Laboratory Results - last 24 hr 07/20/24 05:38 WBC 9.8 RBC 3.23 L Hgb 9.8 L Hct 30.0 L MCV 93 MCH 30.3 MCHC 32.7 RDW Std Deviation 44.1 H Plt Count 151 Neut % (Auto) 76 Lymph % (Auto) 15 Clare % (Auto) 7 Eos % (Auto) 2 Baso % (Auto) 0 Neut # (Auto) 7.4 Lymph # (Auto) 1.4 Clare # (Auto) 0.7 Eos # (Auto) 0.2 Baso # (Auto) 0.0 Immature Gran # (Auto) 0.04 H Absolute Nucleated RBC 0.00 Immature Gran % 0 Nucleated RBC % 0 Sodium 146 H Potassium 3.7 Chloride 104 Carbon Dioxide 36.4 H Anion Gap 6 L BUN 34 H Creatinine 1.4 H Estim Creat Clear Calc 44.8 L eGFR 50 L BUN/Creatinine Ratio 24 H Glucose 105 Calculated Osmolality 298 H Calcium 8.6 Corrected Calcium 9.5 Phosphorus 2.7 Magnesium 1.9 Total Bilirubin 0.6 AST 24 ALT 24 Alkaline Phosphatase 47 Total Protein 5.3 L Albumin 2.9 L Globulin 2.4 Albumin/Globulin Ratio 1.2 Impressions Impression: Small bowel obstruction resolved I agree with the discharge planning No need for GI follow-up Assessment & Plan A&P Narrative Small bowel obstruction/ileus Continue NGT suction Contrast is moving Some of it is all in the right colon hopefully this is an incomplete obstruction and it will resolve with intermittent Gomco suction Patient does have a some kind of a gastroparesis with bloody vomiting on presentation Once the SBO resolves we will consider upper endoscopy to make sure there is no partial stenosis of the pyloric channel Other medical problems include 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
[2024-07-21] VITALS: BP 129/61; PULSE 65; RESP 24; TEMP 37.1; O2SAT 96
[2024-07-21 04:00] VITALS: BP 137/82; PULSE 63; RESP 20; TEMP 36.1; O2SAT 96
[2024-07-21 06:26] LABS: Basophils % (Auto) 0 % (0-2.5); Eosinophils # (Auto) 0.2 Thou/mm3 (0.0-0.5); Eosinophils % (Auto) 2 % (0-10); Hematocrit 28.5 % (41.0-53.0); Hemoglobin 9.2 g/dL (13.5-16.0); Immature Granulocytes % (Auto) 0 % (0-0); Immature Granulocytes Auto 0.04 Thou/mm3 (0.00-0.00); Lymphocytes # (Auto) 1.5 Thou/mm3 (1.0-4.8); Lymphocytes % (Auto) 15 % (10-50); Mean Corpuscular HGB Conc 32.3 g/dl (31.0-37.0); Mean Corpuscular Hemoglobin 29.8 pg (25.0-35.0); Mean Corpuscular Volume 92 fL (80-100); Monocytes # (Auto) 0.6 Thou/mm3 (0.0-0.8); Monocytes % (Auto) 6 % (0-12); Neutrophils # (Auto) 7.9 Thou/mm3 (1.8-7.7); Neutrophils % (Auto) 77 % (37-80); Nucleated Red Blood Cell % 0 /100 WBC (0); Platelet Count 149 Thou/mm3 (140-440); RDW Standard Deviation 43.8 fL (35.1-43.9); Red Blood Count 3.09 Miln/mm3 (4.50-5.90); White Blood Count 10.3 Thou/mm3 (3.8-10.6)
[2024-07-21 06:45] LABS: Alanine Aminotransferase 19 U/L (10-49); Albumin, Serum 2.8 gm/dL (3.4-4.8); Albumin/Globulin Ratio 1.2 (1.2-2.2); Alkaline Phosphatase 47 U/L (46-116); Anion Gap 3 (7-16); Aspartate Amino Transferase 20 U/L (0-34); BUN/Creatinine Ratio 18 Ratio (12-20); Bilirubin,Total 0.6 mg/dL (0.3-1.2); Blood Urea Nitrogen 25 mg/dL (9-23); Calcium 7.9 mg/dL (8.3-10.6); Calcium (Corrected) 8.9 mg/dL (8.5-10.1); Carbon Dioxide 33.8 mMol/L (20.0-31.0); Chloride 103 mMol/L (98-107); Creatinine (Component) 1.4 mg/dL (0.6-1.3); Estimated Creatinine Clearance 44.8 mL/min (>60); Globulin 2.4 gm/dL (2.3-3.5); Glucose 124 mg/dL (74-106); Magnesium 2.2 mg/dL (1.6-2.6); Osmolality,Calculated 284 (275-295); Phosphorous 2.9 mg/dL (2.4-5.1); Potassium 4.3 mMol/L (3.4-5.1); Sodium 140 mMol/L (136-145); Total Protein 5.2 gm/dL (5.7-8.2); eGFR 50 See Note
[2024-07-21 07:21] VITALS: PULSE 60; RESP 17; RESP 93
[2024-07-21 08:00] VITALS: BP 127/54; PULSE 62; RESP 17; TEMP 36.3; O2SAT 91
[2024-07-21 08:07] VITALS: BP 127/57; PULSE 62
[2024-07-21] MEDS: carVEDILOL 12.5 MG TABLET PO (08:07)
[2024-07-21] MEDS: PANTOPRAZOLE INJ 40 MG VIAL IVP (08:07)
[2024-07-21] MEDS: ASPIRIN EC 81 MG TABEC PO (08:07)
[2024-07-21] MEDS: TERAZOSIN HCL 5 MG CAPSULE PO (08:07)
[2024-07-21] MEDS: ATORVASTATIN CALCIUM 20 MG TABLET PO (08:07)
[2024-07-21 12:00] VITALS: BP 131/56; PULSE 57; RESP 17; TEMP 36.1; O2SAT 93
--- NOTE | 2024-07-21 15:49 | ESDS_ITS ---
<Statement entered by Yuridia Castro MD - 07/21/24 16:02> I discussed with and supervised the internetworking technician physician who took care of this patient. I personally saw and examined the patient and discussed the assessment and plan with the entire medicine team, including my attending Dr. Ruiz I agree with the assessment and plan as documented below Patient seen and examined at bedside today. Labs and imaging reviewed. Yuridia Castro MD PGY-3 Disclaimer: Despite multiple revisions, due to the dictation software being used, the document bellow may not be free of grammatical errors including phonetic/typographic errors. However, this does not deter from our commitment to providing health care in the patient's best interest in mind. <Statement entered by Lawanda Pitts MD - 07/21/24 15:54> I discussed with and supervised the internetworking technician physician who took care of this patient. I personally saw and examined the patient and discussed the assessment and plan with the entire medicine team, including my attending Dr. Ruiz, I agree with most of the assessment and plan as documented below Lawanda Pitts M.D. PGY-2 Disclaimer: Despite multiple revisions, due to the dictation software being used, the document bellow may not be free of grammatical errors including phonetic/typographic errors. However, this does not deter from our commitment to providing health care in the patient's best interest in mind. Planned Discharge Date 07/21/24 DS: Providers Provider Date of admission: 07/10/24 17:03 Primary care physician: Physician No Primary/Family Admitting Provider: Basilio Lemons MD Attending Provider on Admission: Gume Ruiz MD Consults: 07/11/24 09:38 Consult to Nephrology Stat Comment: GIORGI on CKD Consulting Provider: Ramirez Galeano 07/11/24 14:27 Consult to Gastroenterology Stat Comment: gastric outlet Consulting Provider: Nolan Khan 07/12/24 08:21 Consult to General Surgery Stat Comment: SBO Consulting Provider: Sarah Murillo 07/17/24 11:34 Referral Physical Therapy Routine Comment: Physician Instructions: Attending Provider on DC: Gume Ruiz MD Discharging Provider: Charles Price MD Anticipated date of discharge: 07/21/24 DS: Diagnosis Problem List Completed Was Problem List Reviewed/Reconciled?: Yes Hospital Course Hospital Course Hospital course: 83-year-old man with past medical history of CAD s/p open heart surgery, hypertension, CKD who came to the ED with chief complaint of abdominal pain. Patient stated that approximately 3 days ago after eating some beans and tortillas hours later started having nausea and multiple episodes of vomiting associated to severe pain until last night that he describes the pain as diffuse and unbearable for which he decided to come to the ED. He stated he was passing gas until last night and that his last bowel movement was this morning and was very scant. Patient will be admitted for further treatment and management of SBO and GIORGI on CKD. During hospital stay small bowel obstruction was managed with small bowel series found to be obstructed General Surgery was consulted and had exploratory laparotomy. Postoperatively patient was managed with pain medications and advancing diet as tolerated. Patient was also found to have hypernatremia during hospitalization is likely secondary to GI losses and NG tube output. Patient also had EGD and colonoscopy by GI services for possible GI bleed which was ruled out. Patient also started developing hematuria from Clemons's catheter likely secondary to trauma from Clemons insertion. At this time patient is medically stable for discharge. Please follow-up with your primary care physician within 1 week of discharge. Please follow-up with general surgery within 2 weeks of discharge Please follow-up with urology in regards to patients enlarged prostate. Please continue all home medications as prescribed. Should any symptoms recur or worsen patient is instructed to return to the ED Problem List: #Hypotonic hypernatremia improving #S/p Exploratory laparatomy #Small bowel obstruction resolved #Gastric outlet improving #Upper GI bleed-Ruled out #GIORGI on CKD stage IIIb improving #Hematuria #History of CAD status post open heart surgery #History of Hypertension #Hx of Hyperlipidemia #Hx of BPH #Lactic acidosis resolved #Hyperbilirubinemia resolved #Hyperphosphatemia resolved Case discussed with my seniors Dr. Castro PGY-3, Dr. Pitts PGY-[address] Joseph Price MD PGY-1 Status at Discharge Functional status at discharge: independent ambulation Overall status at discharge: patient is back to baseline Time Spent with Patient Time attestation: Total time spent providing and/or coordinating discharge services: Time spent: Greater than 30 minutes Home Health Home Health Referral Orders: 07/20/24 10:06 Home Health Referral Routine Reason For Exam: Physical therapy Home-Bound The patient must either because of illness or injury, need the aid of supportive devices such as crutches, canes, wheelchairs, and walkers; the use of special transportation; or the assistance of another person in order to leave their place of residence; OR have a condition such that leaving his or her home is medically contraindicated. In addition, the patient also meets the following criteria: patient is normally unable to leave the home and leaving home requires considerable taxing effort. Addendum to Home Health Certification Practitioner's Certification: I certify that the patient has been under my care in the hospital and the care of attending physician (see below). We had a uyob-[id number] encounter on (see date below). My clinical findings indicate that the patient is home bound per the above criteria and the Home Health Services noted in these orders are medically necessary. The primary reason for the [id number] encounter is related to the fact that the patient requires home health services. Date Certifying [id number]-rv-[id number] Physician Encounter: 07/10/24 Physician's Name who will Assume Oversight for HH Services: Yaneli Malone [facility] [place] - Community Resources: Yes PT to Evaluate: Yes PT to evaluate and provide a treatmnet plan to increase patient's mobility and strength. Wound Care: No IV Therapy: No RN Safety Evaluation: Yes RN to evaluate and create a plan of care that will produce positive outcomes. Palliative Treatment: No Palliative treatment and evaluate the need for hospice. Home Health Aide - Personal Care: Yes Home Health Aide to assist with any ADL's. Exam Vital Signs Temp Pulse Resp BP Pulse Ox O2 Del Method O2 Flow Rate 97.0 F 57 L 17 131/56 H 93 L Nasal Cannula 2 07/21/24 12:00 07/21/24 12:00 07/21/24 12:00 07/21/24 12:00 07/21/24 12:00 07/21/24 12:07/21/24 12:00 Narrative Exam Physical Exam GENERAL: NAD, AAOx3 HEENT: Moist mucosa. Eyes open, symmetrical, & clear CARDIO: Heart RRR, no obvious murmurs PULM: No noted coughing/dyspnea CTA B/L, no R/W/R GI: Abdomen soft, nondistended, no pain on palpation. BSx4 SKIN/MSK/EXT: No wounds/rashes/edema/amputations, no pain on palpation. Pedal pulses present B/L NEURO: AAOx3, no focal neuro deficits, able to move all 4 extremities Discharge Plan Plan Patient Disposition: Home w/HOME HEALTH Disposition Comment: Stable Care Plan Goals: Please follow-up with your primary care physician within 1 week of discharge Please follow-up with general surgery within 2 weeks of discharge Please continue all home medications as prescribed. Should any symptoms recur or worsen patient is instructed to return to the ED Prescriptions/Referrals Prescriptions/Med Rec: Continued carvedilol 12.5 mg Tablet 12.5 mg PO BID Rx Instructions: must administer with a meal/food lisinopril 20 mg Tablet 10 mg PO QDAY aspirin 81 mg Capsule 81 mg PO QDAY atorvastatin [Lipitor] 20 mg Tablet 20 mg PO QDAY felodipine 5 mg Tablet Extended Release 24 Hr 5 mg PO QDAY pantoprazole [Protonix] 40 mg Tablet,Delayed Release (Dr/Ec) 40 mg PO QDAY hydrochlorothiazide 12.5 mg Capsule 12.5 mg PO QAM furosemide [Lasix] 40 mg tablet 40 mg PO QDAY terazosin 5 mg capsule 5 mg PO BID Referrals: Sarah Murillo MD [Physician] - (You will receive a phone call to confirm a follow-up appt with me in 1 week) No Primary/Family,Physician [Primary Care Provider] - Patient/Caregiver Discharge Instructions Discharge Activity: activity as tolerated Education Materials: Exploratory Laparotomy, Discharge Instructions- Eating ..., Preventing Surgical Site Infections, Managing Post-Op Pain at Home Print Language: Greenlandic Stand Alone Forms: [employer] Award Info., Patient Portal Info Letter Discharge Order Discharge Orders: Discharge (Routine); Ordered 07/21/24 Ordered By: Yuridia Castro Quality Discharge Quality Measures VTE prophylaxis Attestestation MD Attestation I have examined the patient, reviewed labs and imaging findings, discussed the case with the resident(s), and reviewed entered orders. I agree with the plan of care as outlined in this note. Time Spent: [address] Joseph MD
--- NOTE | 2024-07-21 15:49 | PC.SS ---
Follow up note: SS met with patient and family who had questions about discharge plans. Patient will be staying with his sister once discharged. D/c addressS: [address] [place] [address]. Contact: Barby Hunter, sister, SS updated transfer nurse that new address to be documented. PCP: [facility] w/Georgia Mcnair NP D/c today
--- NOTE | 2024-07-22 09:09 | PC.CC ---
Addendum entered by Bucky Esqueda RN 07/22/24 16:43: [facility] accepted the pt. [facility]ed [facility] . Pending Start of care date. Addendum entered by Bucky Esqueda RN 07/22/24 16:41: HH referral sent to [facility] on [facility]. Awaiting responses. Pending Start of care date. Addendum entered by Bucky Esqueda RN 07/22/24 16:41: [facility] responded on [facility] due to staffing ( patient staying with family member in [place] we do not service that area) [facility] forward ref to [facility] . Addendum entered by Bucky Esqueda RN 07/22/24 09:43: [facility] accepted the pt. Booked [facility]. Pending Start of care date. Original Note: [facility] [employer] [facility]. [facility]. Awaiting responses. Pending Start of care date.
--- NOTE | 2024-07-23 09:50 | PC.CC ---
Start of care date with [facility] is 07/27/24.
== END 2024-07-21 14:23 | disposition home health service (06) | DRG 356 ==
LOC: SERX 17:02 → SERHOLD 17:39 → S3SX 21:50
PROVIDERS: Nurse Practitioner Family; Student in an Organized Health Care Education/Training Program; Surgery; Admitting Provider Student in an Organized Health Care Education/Training Program; Emergency Provider Emergency Medicine; Visit Provider Student in an Organized Health Care Education/Training Program
PROC: (CPT 49000; principal; 2024-07-13 15:00)
DX: K56.50 Intestinal adhesions [bands], unspecified as to partial versus complete obstruction (principal); K25.4 Chronic or unspecified gastric ulcer with hemorrhage; E87.0 Hyperosmolality and hypernatremia; E87.20 Acidosis, unspecified; N17.9 Acute kidney failure, unspecified; R17 Unspecified jaundice; T83.83XA Hemorrhage due to genitourinary prosthetic devices, implants and grafts, initial encounter; E87.1 Hypo-osmolality and hyponatremia; K31.84 Gastroparesis; I25.10 Atherosclerotic heart disease of native coronary artery without angina pectoris; I12.9 Hypertensive chronic kidney disease with stage 1 through stage 4 chronic kidney disease, or unspecified chronic kidney disease; N18.32 Chronic kidney disease, stage 3b; K42.9 Umbilical hernia without obstruction or gangrene; E86.0 Dehydration; E87.6 Hypokalemia; E80.6 Other disorders of bilirubin metabolism; R31.9 Hematuria, unspecified; K56.7 Ileus, unspecified; E78.5 Hyperlipidemia, unspecified; N40.0 Benign prostatic hyperplasia without lower urinary tract symptoms; E83.39 Other disorders of phosphorus metabolism; Z95.1 Presence of aortocoronary bypass graft; Z79.899 Other long term (current) drug therapy; Y65.8 Other specified misadventures during surgical and medical care
CPT/HCPCS: 36415; 74018; 74176; 74250; 80053; 80069; 81001; 83036; 83605; 83690; 83735; 84100; 84484; 85025; 85610; 85730; 93005; 93306; 96374; 96375; 96376; 97162; 99285; A4217; A4649; A4699; J0131; J0694; J2270; J2405; J2470; J2704; J2765; J3010; J3475; J3480; J3490; J7030; J7042; J7120; A9270; J1805

== ENCOUNTER 2024-08-05 13:04 | Outpatient (AMB) | payer OTHER, MEDICAID, SELFPAY ==
--- NOTE | 2024-08-05 13:16 | PD.GSCLVISIT ---
Vital Signs - [facility] 08/05/24 13:17 Height 1.68 m Height Method Stated Weight 85.049 kg Weight Measurement Method Standing Scale BMI 30.2 BP 149/57 H Blood Pressure Source Automatic Cuff Blood Pressure Location Left Upper Arm Position Sitting Respiration 18 Pulse 58 L Pulse Source Monitor Temp 97.8 F Temp Source Temporal Artery Scan Pulse Oximetry (%) 93 L Oxygen Delivery Method Room Air Med/Allergies Allergies & Medications Allergies No Known Allergies Allergy (Verified 08/05/24 13:17) Medication Reconciliation aspirin 81 mg capsule 81 mg PO QDAY 08/10/23 [History Confirmed 08/05/24] atorvastatin 20 mg tablet (Lipitor) 20 mg PO QDAY 08/10/23 [History Confirmed 08/05/24] carvedilol 12.5 mg tablet 12.5 mg PO BID 08/10/23 [History Confirmed 08/05/24] felodipine 5 mg tablet,extended release 24 hr 5 mg PO QDAY 08/10/23 [History Confirmed 08/05/24] hydrochlorothiazide 12.5 mg capsule 12.5 mg PO QAM 08/10/23 [History Confirmed 08/05/24] lisinopril 20 mg tablet 10 mg PO QDAY 08/10/23 [History Confirmed 08/05/24] pantoprazole 40 mg tablet,delayed release (Protonix) 40 mg PO QDAY 08/10/23 [History Confirmed 08/05/24] furosemide 40 mg tablet (Lasix) 40 mg PO QDAY 07/11/24 [History Confirmed 08/05/24] terazosin 5 mg capsule 5 mg PO BID 07/11/24 [History Confirmed 08/05/24] MA Intake Visit Data Collection New Patient or Established: Established Patient (seen at [facility] within 3 years) Seen by Clinical Staff ONLY (RN/MA): No Reason for Visit:: SOB F/U Pain Present Currently: No Clerk Supervisor Required: No PCP or OBGYN visit in last 3 months: Yes Hx Now: No Do You Feel Safe at Home: Yes Authorities Contacted: N/A Smoking Status Smoking Status: Never smoker Immunization / Flu Flu Vaccine in the Last 12 Months: No Flu Vaccine Exclusion Criteria: No Exclusion Criteria Past Medical History Past Medical History NEUROLOGIC: Negative Neurological Disorders or Seizures CARDIAC: Positive Cardiac Disorders, Coronary Artery Disease, Hypercholesterolemia and Hypertension; Negative Congestive Heart Failure RESPIRATORY: Positive Asthma (here for sob); Negative Chronic Obstructive Pulmonary Disease (COPD) GASTROINTESTINAL: Negative Gastrointestinal Disorders GENITOURINARY: Negative Genitourinary Disorders or Renal Disease MUSCULOSKELETAL: Positive Arthritis and Degenerative Disk Disease ENDOCRINE: Negative Endocrine Disorders, Diabetes Mellitus Type 1 or Diabetes Mellitus Type 2 HEMATOLOGIC: Negative Blood Disorders or Sickle Cell Disease OTHER HISTORY: Positive Falls and Blood Transfusions; Negative Blood Transfusion Reaction, Anesthesia Reactions or Cancer Surgical History SURGICAL: Positive Cardiac Surgery and Coronary Artery Bypass Graft Social History SMOKING STATUS: Smoking status: Never smoker ALCOHOL: Alcohol Intake: Never HOUSING: Housing: House LIVES WITH: Lives With: Family HPI HPI Narrative 83M with HTN, HLD, CAD s/p CABG who was admitted with SBO refractory to conservative management s/p laparotomy 07/13, here for planned follow up. Pt reports feeling well overall with no pain, no nausea/vomiting, he is eating well and having regular BMs. He has no concerns regarding his wound ROS Review of Systems Systems Reviewed: All systems reviewed, normal except as documented Objective/Exam General General Appearance: alert, cooperative and well groomed Resp Respiratory exam: Absent respiratory distress Abdominal Abdominal exam: Present soft and incision (midline incision with no erythema, no fluctuance or tenderness; cherri removed today); Absent distention or tenderness Assessment & Plan Diagnosis / Problem List (1) Small bowel obstruction: Status: Acute Assessment & Plan: 83M with HTN, HLD, CAD s/p CABG admitted with SBO requiring laparotomy with evaluation of small bowel 07/13, recovering well Plan: Follow up as needed Advanced Care Planning Advance care planning discussed with:: patient Office Procedures GNS Level of Care Nursing/Assessment Patient Status: Established Patient Nursing Assessment/Reassesment: Medication Reconciliation, Update PMH in EMR and Vital Signs Coordination of Care: Complex Care and Chronic Disease 1-5, Consent,records obtained, informed consent, Education Simp Pt/Fam, Results/Orders obtained and Staff clarify orders Established Patient Charge Established Patient Point Assignment: 90 Established Patient Point Charge: EP Level 3 (80-115) Patient Portal Questionaires Social History Living Situation History Housing: House Housing Other:: Lives with his family Tobacco History Smoking Status: Never smoker Alcohol History Alcohol Intake: Never Domestic Abuse History Do You Feel Safe at Home: Yes Review of Systems Report any current symptoms Only answer those that you have currently: Past Medical History Past Medical History Have you ever been diagnosed with any of the following: Neurological Problems Seizures: No Cardiology Problems Coronary Artery Disease: Yes Hypercholesterolemia: Yes Congestive Heart Failure: No Hypertension: Yes Respiratory Problems Chronic Obstructive Pulmonary Disease (COPD): No Asthma: Yes (here for sob) Genital/Urinary Problems Renal Disease: No Musculoskeletal Problems Arthritis: Yes Degenerative Disk Disease: Yes Endocrine Problems Diabetes Mellitus Type 1: No Diabetes Mellitus Type 2: No Blood Problems Sickle Cell Disease: No Other Problems Falls: Yes Blood Transfusions: Yes Blood Transfusion Reaction: No Anesthesia Reactions: No Cancer: No Surgical History Coronary Artery Bypass Graft: Yes
[2024-08-05 13:17] VITALS: BP 149/57; PULSE 58; RESP 18; TEMP 36.6; O2SAT 93; BMI 30.2
== END 2024-08-05 14:06 | disposition home or self-care (01) ==
LOC: HODSRG 13:04
PROVIDERS: Supervising Provider Surgery; Visit Provider Surgery
DX: Z48.815 Encounter for surgical aftercare following surgery on the digestive system (principal)
CPT/HCPCS: 99213; G0463

== ENCOUNTER → 2025-02-03 | Outpatient (CLI) | payer OTHER, MEDICAID, SELFPAY ==
--- NOTE | 2025-02-03 13:59 | XR_ITS ---
Examination: Right hip AP, lateral, AP pelvis 3 views Technique: Hip AP lateral, AP pelvis, 3 views Exam date and time: February 03, 2025, 1427 hours. INDICATIONS: Right hip pain 1 year FINDINGS: Moderate osteopenia. Moderate narrowing right and left hip joints No right or left hip fracture or dislocation Bones of the pelvis intact IMPRESSION: Moderate narrowing of bilateral hip joints
--- NOTE | 2025-02-03 13:59 | XR_ITS ---
Examination: Lumbar spine, 5 views Technique: Lumbar spine AP, lateral, coned lateral lower lumbar spine, bilateral obliques 5 views Exam date and time: February 03, 2025, 1427 hours INDICATIONS: Low back pain 1 year, comparison December 15, 2018 FINDINGS: Significant osteopenia Advanced facet arthropathy Diffuse lumbar disc narrowing, advanced L2-L3, L5-S1 Prominent lumbar spondylosis Heavy calcification abdominal aorta AP dimension 4.2 cm at the L2 level IMPRESSION: Advanced degenerative disc disease Aneurysmal dilatation abdominal aorta, consider CTA abdomen/pelvis post intravenous contrast follow-up
== END | disposition home or self-care (01) ==
LOC: CDIM 13:53
DX: M51.360 Other intervertebral disc degeneration, lumbar region with discogenic back pain only (principal); I71.40 Abdominal aortic aneurysm, without rupture, unspecified; M25.851 Other specified joint disorders, right hip
CPT/HCPCS: 72110; 73502

== ENCOUNTER → 2025-03-12 | Outpatient (CLI) | payer OTHER, MEDICAID, SELFPAY ==
--- NOTE | 2025-03-12 08:00 | XR_ITS ---
Examination: CTA abdomen, with intravenous contrast. CTA pelvis, with intravenous contrast. 2-D sagittal and coronal reconstructions. 3-D reconstructions. Date and time of exam: March 12, 2025, 0840 hours INDICATIONS: Aneurysmal dilatation of abdominal aorta on plain films lumbar spine February 03, 2025 CTDI vol (mgy) 9.64 DLP (MGycm) 511 Technique: Multiple CTA images, 2.0 mm slice thickness, obtained abdomen, pelvis, with the high-resolution 64 slice scanner. 50 cc Isovue-300 is administered intravenously. Sagittal and coronal 2-D reconstructions are obtained. 3-D reconstructions, angiographic images are obtained. 3-D postprocessing, including vascular maximum intensity projections. Low dose protocols were performed. One or more of the following dose reduction techniques were used; automated exposure control, adjustment of the mA and/or KV according to patient size, use of iterative reconstruction technique. Findings: Moderate enlargement cardiac contour Prominent elevation left hemidiaphragm No focal liver or splenic lesions Gallstones No pancreatic mass No hydronephrosis Heavy calcification origin right renal artery and left renal artery No thoracic aortic aneurysm is confirmed No bowel obstruction Normal appendix Mild thickening of the urinary bladder wall Prominent osteopenia IMPRESSION: Heavy calcification abdominal aorta and renal artery origins but no abdominal aortic aneurysm dilatation
== END | disposition home or self-care (01) ==
DX: I70.1 Atherosclerosis of renal artery (principal); I70.0 Atherosclerosis of aorta
CPT/HCPCS: 74174; A4649; Q9967